=== PATIENT | male | born 1950 | race Caucasian/White ===

== ENCOUNTER 2023-07-22 01:24 | Observation (INO) | payer MEDICARE, SELFPAY ==
--- OUTSIDE RECORDS SUMMARY | 2023-07-22 00:37 | XMS RPT_ITS | CCD ---
Author Name Unknown Address [id number] [place] [address] Organization [facility] Care Team Providers Care Lining Machine Operator Name Role Phone Unavailable Primary Care Provider Unavailabl e Shasha DO, [facility] Primary Care Provide r Evens Love MD Unavailable Philomena Leone MD Unavailable Ignacio KEYES MD, [place] Unavailable Ignacio KEYES, [place] Unavailable NICA PIZANO Attending Unavailable NICA PIZANO Referring Unavailable RONA PETER Referring Unavailable TIRMONIA, [facility] Unavail able EVENS LOVE Referring Unavailable TIRMONIA, [facility] Primary Care Unavail able EVENS LOVE Referring Unavailable TIRMONIA, [facility] Unavail able TIRMONIA, [facility] Primary Care Unavail able SHREYAS LIM Referring Unavailable Philomena Leone MD Unavailable EVENS LOVE Attending Unavailable EVENS LOVE Referring Unavailable EVENS LOVE Attending Unavailable CLAIR CABALLERO Admitting Unavailab le CINDY-CLAIR PÉREZ Attending Unavailab le CINDYCLAIR CANALES Referring Unavailab le TIRMONIA, [facility] Primary Care Unavail able TRENTON JAQUEZ Referring Unavailable TIRMONIA, [facility] Unavail able EVENS LOVE Referring Unavailable TIRMONIA, [facility] Unavail able TIRMONIA, [facility] Unavailable CLAIR CABALLERO Referring Unavailab le TIRMONIA, EDNA Primary Care Unavailable TIRMONIA, [place] Primary Care Unavailable TRENTON JAQUEZ Referring Unavailable JANNETH PIERRE Attending Unavailable TIRMONIA, EDNA Primary Care Unavailable JANNETH PIERRE Attending Unavailable JANNETH PIERRE Attending Unavailable TIRMONIA, EDNA Primary Care Unavailable TIRMONIA, EDNA Primary Care Unavailable TIRMONIA, EDNA Primary Care Unavailable TIRMONIA, EDNA Primary Care Unavailable MINNIE KUMAR Attending Unavailable SELF Referring Unavailable TIRMONIA, EDNA Primary Care Unavailable TIRMONIA, EDNA Primary Care Unavailable TIRMONIA, EDNA Primary Care Unavailable TIRMONIA, EDNA Primary Care Unavailable JANNETH PIERRE Attending Unavailable JANNETH PIERRE Attending Unavailable TIRMONIA, EDNA Primary Care Unavailable TIRMONIA, EDNA Primary Care Unavailable JANNETH PIERRE Attending Unavailable EVENS LOVE Referring Unavailable RONA PETER Attending Unavailable TIRMONIA, EDNA Primary Care Unavailable TIRMONIA, EDNA Primary Care Unavailable TIRMONIA, EDNA Primary Care Unavailable JANNETH PIERRE Attending Unavailable TIRMONIA, EDNA Primary Care Unavailable RONA PETER Referring Unavailable TIRMONIA, EDNA Primary Care Unavailable TRENTON JAQUEZ Attending Unavailable TIRMONIA, EDNA Primary Care Unavailable MASCI, TRENTON A Referring Unavailable MASCTRENTON Fontaine Attending Unavailable MASCTRENTON Fontaine Referring Unavailable TIRMONIA, [place] Primary Care Unavailable TIRMONIA, EDNA Primary Care Unavailable Vasu KEYES, Philomena Gross Unavailable Trenton Jaquez DO Unavailable DoLaquita morales RN Unavailable Unavailable Medications Current Medications Medication Drug Class(es) Dates Sig (Normalized) Sig (Original) acetaminophen 325 mg / HYDROcodone bitartrate 5 mg oral tablet (7 sources) Opioid Agonist Start: 06-13-2023 End: 06-20-2023 take 1 tablet by mouth every six hours as needed for pain HYDROcodone-acetami nophen (NORCO) 5-325 mg per tablet Indications: Spinal stenosis of lumbar region, unspecified whether neurogenic claudication present Take 1 tablet by mouth every 6 hours as needed for pain for up to 7 days. 28 tablet 0 06/13/2023 06/20/2023 Active Completed/Discontinued Medications Medication Drug Class(es) Dates Sig (Normalized) Sig (Original) apixaban 5 mg oral tablet (20 sources) Factor Xa Inhibitor Start: 07-05-2023 take 1 tablet by mouth twice daily apixaban (ELIQUIS) 5 mg tab(s) Take 1 tablet by mouth two times a day. 60 tablet 2 07/05/2023 Active Problems Problem Classification Problem Date Documented Da te Episodic/Chronic Abdominal pain (1 source) Upper abdominal pain, unspecified; Translations: [Upper abdominal pain] Onset: 07-03-2023 Episodic Anxiety disorders (1 source) Anxiety disorder due to a general medical condition; Translations: [Generalized anxiety disorder] 06-30-2023 Chronic Cancer of bronchus; lung (20 sources) Secondary malignant neoplasm of liver; Translations: [Malignant neoplasm of unspecified part of unspecified bronchus or lung] Onset: 07-14-2023 07-05-2023 Chronic Cancer; other respiratory and intrathoracic (1 source) Malignant neoplasm of lower respiratory tract; 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] 07-05-2023 Chronic Immunizations and screening for infectious disease (2 sources) Encounter for immunization; Translations: [Need for COVID-19 vaccine] Onset: 06-08-2023 Episodic Neoplasms of unspecified nature or uncertain behavior (2 sources) Neoplasm of unspecified behavior of bone, soft tissue, and skin; Translations: [Lumbar spine tumor] Onset: 06-07-2023 Episodic Other aftercare (2 sources) Patient encounter status; Translations: [Encounter for palliative care] 06-25-2023 Episodic Other aftercare (1 source) Under care of palliative care physician; Translations: [Encounter for palliative care] 06-30-2023 Episodic Other bone disease and musculoskeletal deformities (1 source) Lesion of right thigh bone; Translations: [Disorder of bone, unspecified] 06-19-2023 Episodic Other bone disease and musculoskeletal deformities (1 source) Disorder of bone, unspecified; Translations: [Lytic bone lesion of right femur] Onset: 06-20-2023 Episodic Other gastrointestinal disorders (1 source) Therapeutic opioid induced constipation; Translations: [Drug induced constipation] 06-30-2023 Episodic Other liver diseases (1 source) Lesion of liver; Translations: [Liver disease, unspecified] 06-17-2023 Chronic Other liver diseases (3 sources) Liver disease, unspecified; Translations: [Liver lesion] Onset: 06-20-2023 Chronic Other lower respiratory disease (1 source) Cough; Translations: [Acute cough] 04-26-2023 Episodic Other lower respiratory disease (20 sources) Other nonspecific abnormal finding of lung field; Translations: [Swelling, mass, or lump in chest] Onset: 06-08-2023 06-08-2023 Episodic Other lower respiratory disease (1 source) Hiccoughs; Translations: [Hiccough] 06-30-2023 Episodic Other nervous system disorders (2 sources) Pain due to neoplastic disease; Translations: [Neoplasm related pain (acute) (chronic)] 06-27-2023 Chronic Other nervous system disorders (1 source) Malignant bone pain; Translations: [Neoplasm related pain (acute) (chronic)] 07-05-2023 Chronic Other nervous system disorders (1 source) Other chronic pain; Translations: [Chronic bilateral low back pain with right-sided sciatica] Onset: 06-07-2023 Chronic Other nutritional; endocrine; and metabolic disorders (1 source) Weight loss; Translations: [Abnormal weight loss] 06-30-2023 Episodic Other nutritional; endocrine; and metabolic disorders (1 source) Dietary intake finding; Translations: [Other symptoms and signs concerning food and fluid intake] 06-30-2023 Episodic Other screening for suspected conditions (not mental disorders or infectious disease) (20 sources) Imaging of thorax abnormal; Translations: [Abnormal findings on diagnostic imaging of other specified body structures] Onset: 06-08-2023 06-08-2023 Chronic Other screening for suspected conditions (not mental disorders or infectious disease) (20 sources) Finding of spinal region; Translations: [Abnormal findings on diagnostic imaging of other parts of musculoskeletal system] Onset: 06-08-2023 06-08-2023 Episodic Pneumonia (except that caused by tuberculosis or sexually transmitted disease) (2 sources) Infective pneumonia; Translations: [Pneumonia, unspecified organism] Onset: 04-26-2023 04-26-2023 Episodic Rheumatoid arthritis and related disease (20 sources) Rheumatoid arthritis; Translations: [Rheumatoid arthritis, unspecified] Onset: 06-08-2023 06-08-2023 Chronic Secondary malignancies (1 source) Secondary malignant neoplastic disease; Translations: [Secondary malignant neoplasm of unspecified site] 06-19-2023 Chronic Secondary malignancies (2 sources) Secondary malignant neoplasm of brain; Translations: [Secondary malignant neoplasm of brain] 06-22-2023 Chronic Secondary malignancies (1 source) Secondary malignant neoplasm of unspecified site; Translations: [Metastatic malignant neoplasm, unspecified site (HCC)] Onset: 07-03-2023 Chronic Spondylosis; intervertebral disc disorders; other back problems (20 sources) Chronic low back pain; Translations: [Chronic midline low back pain] Onset: 05-26-2023 06-08-2023 Episodic Thyroid disorders (1 source) Acquired hypothyroidism; Translations: [Hypothyroidism, unspecified] 07-14-2023 Chronic Unclassified (1 source) Acute cough; Translations: [Acute cough] Onset: 04-26-2023 Unclassified (2 sources) Low back pain, unspecified back pain laterality, unspecified chronicity, unspecified whether sciatica present; Translations: [Low back pain, unspecified back pain laterality, unspecified chronicity, unspecified whether sciatica present] Onset: 05-26-2023 Unclassified (1 source) Radiotherapy On-treatment Visit Onset: 07-05-2023 Results Test Name Value Interpretation Reference Range Facil ity Vital Signs Date Time Vital Sign Value Performing Clinician Frank mei 07-14-2023 13:36-0500 Body temperature 98.49 [degF] Treatment Wstr Work Phone: [facility] 07-14-2023 13:36-0500 Diastolic blood pressure 64 mm[Hg] Treatment Wstr Work Phone: [facility] 07-14-2023 13:36-0500 Heart rate 77 /min Treatment Wstr Work Phone: [facility] 07-14-2023 13:36-0500 Respiratory rate 16 /min Treatment Wstr Work Phone: [facility] 07-14-2023 13:36-0500 SaO2% (BldA) [Mass fraction] 98 % Treatment Wstr Work Phone: [facility] 07-14-2023 13:36-0500 Systolic blood pressure 99 mm[Hg] Treatment Wstr Work Phone: [facility] 07-14-2023 09:10-0500 Body temperature 99 [degF] Trenton Jaquez DO Work Phone: [facility] 07-14-2023 09:10-0500 Body weight 63.96 kg Trenton Masci DO Work Phone: [facility] 07-14-2023 09:10-0500 Diastolic blood pressure 69 mm[Hg] Trenton Masci DO Work Phone: [facility] 07-14-2023 09:10-0500 Heart rate 81 /min Trenton Masci DO Work Phone: [facility] 07-14-2023 09:10-0500 Respiratory rate 12 /min Trenton Masci DO Work Phone: [facility] 07-14-2023 09:10-0500 SaO2% (BldA) [Mass fraction] 96 % Trenton Masci DO Work Phone: [facility] 07-14-2023 09:10-0500 Systolic blood pressure 106 mm[Hg] Trenton Masci DO Work Phone: [facility] 07-12-2023 17:01-0500 Body temperature 99.1 [degF] Taunia Hardgrove RN Work Phone: [facility] 07-12-2023 17:01-0500 Diastolic blood pressure 60 mm[Hg] Taunia Hardgrove RN Work Phone: [facility] 07-12-2023 17:01-0500 Heart rate 78 /min Taunia Hardgrove RN Work Phone: [facility] 07-12-2023 17:01-0500 Respiratory rate 16 /min Taunia Hardgrove RN Work Phone: [facility] 07-12-2023 17:01-0500 Systolic blood pressure 92 mm[Hg] Taunia Hardgrove RN Work Phone: [facility] 07-08-2023 16:41-0500 Body temperature 97.3 [degF] Taunia Hardgrove RN Work Phone: [facility] 07-08-2023 16:41-0500 Diastolic blood pressure 78 mm[Hg] Taunia Hardgrove RN Work Phone: [facility] 07-08-2023 16:41-0500 Heart rate 78 /min Lenora Elijahgrove RN Work Phone: [facility] 07-08-2023 16:41-0500 Respiratory rate 16 /min Lenora Elijahgrove RN Work Phone: [facility] 07-08-2023 16:41-0500 Systolic blood pressure 122 mm[Hg] Lenora Elijahgrove RN Work Phone: [facility] 07-07-2023 14:29-0500 Body height 170.2 cm Gurvinder Schwartz RN Work Phone: [facility] 07-07-2023 14:29-0500 Body temperature 97.39 [degF] Gurvinder Schwartz RN Work Phone: [facility] 07-07-2023 14:29-0500 Body weight 63.5 kg Gurvinder Schwartz RN Work Phone: [facility] 07-07-2023 14:29-0500 Diastolic blood pressure 72 mm[Hg] Gurvinder Schwartz RN Work Phone: [facility] 07-07-2023 14:29-0500 Heart rate 54 /min Gurvinder Schwartz RN Work Phone: [facility] 07-07-2023 14:29-0500 Respiratory rate 18 /min Gurvinder Schwartz RN Work Phone: [facility] 07-07-2023 14:29-0500 Systolic blood pressure 114 mm[Hg] Gurvinder Schwartz RN Work Phone: [facility] 07-05-2023 11:58-0500 Body temperature 98.4 [degF] Trenton Navarretei DO Work Phone: [facility] 07-05-2023 11:58-0500 Body weight 63.5 kg Trenton Masci DO Work Phone: [facility] 07-05-2023 11:58-0500 Diastolic blood pressure 61 mm[Hg] Trenton Masci DO Work Phone: [facility] 07-05-2023 11:58-0500 Heart rate 67 /min Trenton Navarretei DO Work Phone: [facility] 07-05-2023 11:58-0500 Respiratory rate 16 /min Trenton Masci DO Work Phone: [facility] 07-05-2023 11:58-0500 SaO2% (BldA) [Mass fraction] 96 % Trenton Masci DO Work Phone: [facility] 07-05-2023 11:58-0500 Systolic blood pressure 99 mm[Hg] Trenton Rosalbai DO Work Phone: [facility] 06-22-2023 13:48-0500 Body temperature 98.01 [degF] Janneth Pierre MD, MD Work Phone: [facility] 06-22-2023 13:48-0500 Body weight 70.99 kg Janneth Pierre MD, MD Work Phone: [facility] 06-22-2023 13:48-0500 Diastolic blood pressure 74 mm[Hg] Janneth Pierre MD, MD Work Phone: [facility] 06-22-2023 13:48-0500 Heart rate 71 /min Janneth Pierre MD, MD Work Phone: [facility] 06-22-2023 13:48-0500 SaO2% (BldA) [Mass fraction] 96 % Janneth Pierre MD, MD Work Phone: [facility] 06-22-2023 13:48-0500 Systolic blood pressure 120 mm[Hg] Janneth Pierre MD, MD Work Phone: [facility] 06-17-2023 14:44-0500 Body height 173.5 cm Trenton Navarretei DO Work Phone: [facility] 06-17-2023 14:44-0500 Body temperature 98.71 [degF] Trenton Rosalbai DO Work Phone: [facility] 06-17-2023 14:44-0500 Body weight 71.44 kg Trenton Rosalbai DO Work Phone: [facility] 06-17-2023 14:44-0500 Diastolic blood pressure 69 mm[Hg] Trenton Jaquez DO Work Phone: [facility] 06-17-2023 14:44-0500 Heart rate 81 /min Trenton Navarretei DO Work Phone: [facility] 06-17-2023 14:44-0500 SaO2% (BldA) [Mass fraction] 97 % Trenton Navarretei DO Work Phone: [facility] 06-17-2023 14:44-0500 Systolic blood pressure 114 mm[Hg] Trenton Navarretei DO Work Phone: [facility] 06-16-2023 03:00-0500 Body temperature 98.2 [degF] Lea Chairez RN Work Phone: [facility] 06-16-2023 03:00-0500 Diastolic blood pressure 68 mm[Hg] Lea Chairez RN Work Phone: [facility] 06-16-2023 03:00-0500 Respiratory rate 18 /min Lea Chairez RN Work Phone: [facility] 06-16-2023 03:00-0500 Systolic blood pressure 128 mm[Hg] Lea Chairez RN Work Phone: [facility] 04-26-2023 12:46-0500 Body temperature 98.4 [degF] Nica Pizano CHEMIST INORGANIC.EMPLOYEE RELATIONS CONSULTANT Work Phone: [facility] 04-26-2023 12:46-0500 Diastolic blood pressure 83 mm[Hg] Nica Pizano CHEMIST INORGANIC.EMPLOYEE RELATIONS CONSULTANT Work Phone: [facility] 04-26-2023 12:46-0500 Heart rate 80 /min Nica Pizano CHEMIST INORGANIC.EMPLOYEE RELATIONS CONSULTANT Work Phone: [facility] 04-26-2023 12:46-0500 Respiratory rate 20 /min Nica Pizano CHEMIST INORGANIC.EMPLOYEE RELATIONS CONSULTANT Work Phone: [facility] 04-26-2023 12:46-0500 SaO2% (BldA) [Mass fraction] 97 % Nica Pizano APRN.CNP Work Phone: [facility] 04-26-2023 12:46-0500 Systolic blood pressure 125 mm[Hg] Nica Pizano APRN.CNP Work Phone: [facility] Encounters Encounter Date Encounter Type Care Provider Facility Start: 07-17-2023 Home visit Lety Wilkins RN Work Phone: HOME HOSPICE Plan of Treatment Date Care Activity Detail Author Start: 07-14-2026 Diabetes Screening Diabetes Screenin g [facility] Start: 07-03-2026 Diabetes Screening Diabetes Screenin g [facility] Start: 06-08-2026 Diabetes Screening Diabetes Screenin g [facility] Start: 07-14-2023 End: 10-13-2023 Cortisol [Mass/volume] in Serum or Plasma [facility] Work Phone: Immunizations Immunization Date Immunization Notes Care Provider Jaja randle 06-08-2023 COVID-19 vaccine, ag e 12+ yr, season ([employer]) Wendy Hammond RN [facility] 06-08-2023 influenza (HD-IIV4) vaccine, age 65+ yr, high dose, quadrivalent, PF (FLUZONE HIGH-DOSE) Wendy Hammond RN [facility] 03-22-2022 Influenza, injectabl e, Madin Mary Canine Kidney, preservative free, quadrivalent Wendy Hammond RN [facility] Work Phone: 03-22-2022 influenza virus vaccine, unspecified formulation Nica Pizano APRN.CNP Work Phone: [facility] 03-10-2021 influenza, seasonal, injectable Wendy Hammond RN [facility] Work Phone: 03-28-2020 influenza (HD-IIV4) vaccine, age 65+ yr, high dose, quadrivalent, PF (FLUZONE HIGH-DOSE) Wendy Hammond RN [facility] Work Phone: Payers Date Payer Category Payer Medicare [id number] 2020 Medicare [id number] 2020 Private Health Insurance [id number] 2007 Medicare MEDICARE MEDICAR E A AND B [id number] 2007-Present [phone] [place] [address] Medicare [id number] 2007 Medicare [id number] Social History Date Type Detail Facility Tobacco smoking stat [facility] Tobacco smoking consumption unknown [facility] Start: 1950 Sex Assigned At Not on file [facility] Start: 04-26-2023 Tobacco smoking stat [facility] Never smoked tobacco [facility] Start: 04-26-2023 End: 06-08-2023 Tobacco use and exposure Smokeless tobacco non-user [facility] Start: 04-26-2023 End: 07-14-2023 Alcohol intake Current drinker of alcohol (finding) [facility] Start: 04-26-2023 End: 05-26-2023 History of Social function [facility] Start: 04-26-2023 End: 05-26-2023 Tobacco use panel [facility] Adult Depression Screening Assessment 0 [facility] Start: 06-08-2023 Tobacco smoking stat [facility] Ex-smoker [facility] Start: 05-23-1970 End: 05-23-1995 History of tobacco use Current smoker [facility] Start: 05-23-1970 End: 05-23-1995 History of tobacco use Cigarette Smoker [facility] Start: 06-08-2023 Sexual orientation Heterosexual (marychuy leavitt) [facility] Start: 06-17-2023 Alcohol [facility] Clinical Notes 07-14-2022 to 07-15-2023 Telephone Encounter - Laquita Engel RN - 07/15/2023 9:50 AM ESTTelephone Encounter - Raegan Patient ShaggerRaissa - 07/14/2023 4:09 PM Laquita Beavers RN - 07/14/2023 2:50 PM EST Note Date & Type Note Facility 07-15-2023 Miscellaneous Notes CYCLE 1/DAY 1 POST TREATMENT CALL Today's date: July 15, 2023 Treatment Regimen: keytruda C1D1 Date: 07/14/23 Called patient to follow-up on symptom management. Spoke with patients SYMPTOM ASSESSMENT Neuro: None- denies dizziness, headaches, or visual changes CV/Resp: None- denies SOB, chest pain/pressure GI/: None- denies N/V/D, had breakfast this morning. Integument: None- denies rash/itching Activity: Patient reported decreased energy level Pain: the usual pain . Denies worsening or new pains today. Fever: No Chills: No Any new referrals needed? No Reinforced CURRENT treatment education based on current and anticipated symptoms. Discussed port/line care and patient verbalizes understanding: Not Applicable Patient instructed to contact office or after hours Hematology/Oncology fellow for: temperature ? 100.4; questions or concerns. Patient verbalized understanding of when to seek medical attention and after hours number protocol. Laquita Engel RN documented in this encounter [facility] 07-14-2023 Miscellaneous Notes Called and informed patients family of pall med follow up for 07/25 SP Palliative Medicine Referral Assessment Referral Accepted: Yes, Location: Pall Med at Home. 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 Wishes to receive palliative care services again. Please call to schedule with pall med at home. Dionna Yeboah RN July 14, [address] Chowdhury office who calls office . Regarding patient revoke hospice and want to sign back with pall med . Referral in other order . Rc Silva documented in this encounter [facility] 07-14-2023 Nurse Note This visit was completed chairside. Laquita Engel RN ONCOLOGY PATIENT EDUCATION NOTE TOPIC: Immunotherapy, Medications: Keytruda READINESS TO LEARN: COGNITIVE ABILITY: Alert and oriented MOTIVATION TO LEARN: Interested FAMILY SUPPORT: High - Very involved in pt care INSTRUCTION PROVIDED TO: Patient, Spouse, and Son INSTRUCTION PROVIDED BY: Nurse Coordinator PATIENT LEARNS BEST BY: Multiple Methods FACTORS AFFECTING LEARNING: None PHYSICAL LIMITATIONS AFFECTING LEARNING: None LEARNING RESPONSE DIAGNOSIS: Lung Cancer METHOD OF INSTRUCTION: Individual instruction Written instruction - handouts Verbal instruction PATIENT/FAMILY RESPONSE: Verbalizes understanding of: CHEMOTHERAPY-Regimen, toxicity and side effects FOLLOW UP PLAN: Patient instructed to call with any further issues Recommend - Recommend continued instruction and follow up as directed Follow up phone call. Contact information given. SUPPLEMENTAL MATERIAL: Written material was provided at this visit with the following information: - Immunotherapy education was provided by a pharmacist NO - Side effect management information was provided/discussed including but not limited to: abdominal discomfort, appetite changes, arthralgia, bowel habit changes, diet, electrolyte disturbances, fatigue, hair loss, myalgia, rash, shortness of breath, skin changes, YES - Provided important phone numbers and contacts during and after hours. YES - Provided information on symptoms that require immediate assistance. YES - Provided Immunotherapy when to call handouts YES - Preventing infection. YES - Treatment schedule and confirmation of appointment times. YES - Available support groups. YES - The importance of contraception during the course of chemotherapy YES - wallet cards given to and discussed importance of carrying Time Spent: 35 minutes REFERRAL (RECOMMENDATION): N/A Laquita Engel RN documented in this encounter [facility] 07-14-2023 Miscellaneous Notes Addended by: TRENTON JAQUEZ on: 07/14/2023 10:09 AM Modules accepted: Orders Addended by: PAOLA BEAR on: 07/14/2023 10:07 AM Modules accepted: Orders documented in this encounter [facility] 07-14-2023 Miscellaneous Notes Met with patient and introduced myself. Patient was given a My Journey binder with chemocare information, immunotherapy side effects sheet, immunotherapy wallet care, office contact information, and thermometer. Patient aware this nurse will review information on scheduled appointment date. Laquita Engel RN documented in this encounter [facility] 07-14-2023 Miscellaneous Notes Second attempt to phone pt/family to follow up admission notes that they requested PC services. 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 HPI: The patient is a 73-year-old male with past medical history significant for rheumatoid arthritis (diagnosed about 15 years ago), low back pain, former smoker (quit 1995; 15 pack years). RA--had been on MTX, Humira and other biologics in the past. Currently on Plaquenil. Had an MRI of the lumbar spine which showed marrow replacing lesions in L2 and L3 suspicious for metastatic disease. On a callback MRI done with contrast similar osseous findings and retroperitoneal adenopathy observed as well. Follow-up CT abdomen pelvis 06/12/2023 identified Widespread abdominopelvic neoplasm, including bilobar hepatic masses, extensive abdominal lymphadenopathy, a right adrenal mass, multiple lytic bone metastases, and suspected carcinomatosis. This is presumably diffuse metastatic disease, although the primary neoplasm is not clearly identified. As indicated, the dominant left lobe liver metastasis would be amenable for percutaneous biopsy. CT chest IMPRESSION: 1. RIGHT upper lobe mass favoring primary pulmonary malignancy. 2. Multiple bilateral small pulmonary nodules highly suspicious for metastatic disease. 3. Metastatic RIGHT hilar and paratracheal lymphadenopathy. 4. Lytic osseous metastases involving the T8 vertebral body, bilateral fourth ribs, and LEFT ninth rib. Underwent biopsy of liver metastasis. Pathology revealed metastatic poorly differentiated carcinoma. PD-L1 and targeted NGS panel pending. 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 Was started on dexamethasone and began WBRT and RT to the right greater trochanter. Presents for ongoing oncologic management. Interim history: Weight stable now. Using walker. Greater trochanteric pain right hip unchanged. RA had manifested as bilateral hand, knee, ankle and back pain. He is currently on hydroxychloroquine. Hands he says her not too bad at this point. PAST MEDICAL HISTORY Diagnosis Date Arthritis PAST SURGICAL HISTORY Procedure Laterality Date KNEE LEFT OP SURGERY REVISE MEDIAN N/CARPAL TUNNEL SURG Right ALLERGIES No Known Allergies Current Outpatient Medications Medication Sig LORazepam (ATIVAN) 1 mg tablet Take 1 mg by mouth every 4 hours as needed for anxiety. famotidine (PEPCID AC) 10 mg tablet Take 10 mg by mouth two times a day. pantoprazole DR (PROTONIX) 20 mg tablet Take 20 mg by mouth once daily. hyoscyamine sublingual (LEVSIN SL) 0.125 mg Dissolve 1-2 tablets under the tongue every 2 hours as needed for Secretions. (1 tablet for moderate symptoms; 2 tablets for severe symptoms) haloperidol lactate (HALDOL) 2 mg/mL solution Take 0.5-1 mL by mouth every 4 hours as needed for Agitation or nausea/vomiting. (0.5 mL for moderate symptoms; 1 mL for severe symptoms) bisacodyl EC (DULCOLAX, BISACODYL,) 5 mg EC tablet Take 2 tablets by mouth once daily as needed for constipation. senna (SENOKOT) 8.6 mg tab Take 1 tablet by mouth two times a day. (Patient taking differently: Take 2 tablets by mouth two times a day.) gabapentin (NEURONTIN) 400 mg capsule Take 1 capsule by mouth three times a day for 30 days. apixaban (ELIQUIS) 5 mg tab(s) Take 1 tablet by mouth two times a day. fentaNYL (DURAGESIC) 25 mcg/hr Apply 1 Patch as directed every 72 hours for 15 days. baclofen 10 mg tablet Take 1 tablet by mouth three times a day as needed. For hiccups naloxone 4 mg/actuation nasal spray (NARCAN) Use 1 spray in one nostril as needed for overdose. May repeat every 2 to 3 min in alternating nostrils until medical assistance is available bisacodyl (DULCOLAX, BISACODYL,) 10 mg supp 10 mg by RECTAL route once daily as needed for constipation. Take 1 daily as needed for constipation if no BM using senna for 3 days or unable to take senna by mouth multivitamin tablet Take 1 tablet by mouth once daily. dexAMETHasone (DECADRON) 4 mg tablet Take 1 tablet by mouth two times a day with meals. hydrOXYchloroQUINE (PLAQUENIL) 200 mg tablet Take 200 mg by mouth every 12 hours. LORazepam (ATIVAN) 1 mg tablet Take 0.5 mg by mouth two times a day at 6 am and 9 pm. No current facility-administered medications for this visit. 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 Family History Problem Relation Age of Onset Arthritis Mother Pancreatic Cancer Father Alzheimer's Disease Father Heart disease Brother Lung Cancer Brother Diabetes Brother Arthritis Brother Kidney Disease Brother Diabetes Other Arthritis Other Father--Pancreas diagnosed in his 60s. Surgery. Lived into his 70s. Brother--Lung cancer. Long-term smoker. ROS: Constitutional: No fever. No drenching night sweats. Neuro: No recent ANGEL. No symptoms of sensory neuropathy. HEENT: No recent change in voice, vision or hearing. Resp: No cough, wheeze or emoptysis. No shortness of breath at rest. CVS: No exertional chest pain, PND or orthopnea. No extremity swelling/edema. GI: No dysphagia or odynophagia. No reflux, n/v or abdominal pain, bloating or distension. No black or bloody stools. : No dysuria or gross hematuria Endo: No hot flashes. No polyuria or polydipsia. No heat or cold intolerance. Musculoskeletal: See above. Derm: No current rash. No history of jaundice. No diffuse pruritis. Heme: No unusual bleeding and unexplained bruising. Psych: Normal mood. PHYSICAL EXAM: Vitals: Blood pressure 106/69, pulse 81, temperature 37.2 C (99 F), resp. rate 12, weight 64 kg (141 lb), SpO2 96%. Cachetic-appearing and in no acute distress. EYES: Sclerae are anicteric bilaterally. ENT: Oral mucosa is unremarkable. There is no sign of thrush. LYMPHATIC: There are a firm low-lying cervical adenopathy on the left. RESPIRATORY: Inspiratory breath sounds are of normal intensity in all rodríguez. No rales, wheezes or rhonchi. CARDIOVASCULAR: Rhythm is regular. ABDOMEN: The abdomen is nondistended. Tender left hepatomegaly. Extremities: No swelling or edema. SKIN: No jaundice or rash. NEUROLOGIC: curriculum coordinator II-XII are grossly intact. No focal motor weakness. Right patellar and Achilles reflex normal. MS: Very tender over right greater trochanter. ASSESSMENT/PLAN: (R91.8) Mass of lower lobe of right lung (primary encounter diagnosis (M89.9) Lytic bone lesion of right femur (K76.9) Liver lesion, left lobe (C79.9) Metastatic malignant neoplasm, unspecified site (HCC) Assessment: -The patient is a 73-year-old male with a past medical history significant for rheumatoid arthritis and a [id number] history of smoking having quit in 1995. Evaluated for pain and weight loss found to have a right lung mass as well as multiple skeletal lesions consistent with metastases and liver lesions consistent with metastases. -Biopsy consistent with metastatic non-small cell lung cancer. -ECOG PS 3. -Innumerable brain metastases received WBRT. -Palliative radiation to right greater trochanter. -Recent splanchnic vein thrombosis. -PD-L1 returned to 70%. -We revisited therapy today. Although PS is certainly borderline, he is capable of ambulation around the home and limited self-care. We discussed the pros and cons of immunotherapy. I discussed the rationale for single agent pembrolizumab based on his PD-L1 1 percentage. Also discussed high likelihood of flaring rheumatoid arthritis symptoms that should be manageable with prednisone. Goals of therapy would be possible palliation and potential prolongation of survival. After a discussion of the risks, benefits and alternatives he agreed to proceed. -I discussed the logistics, potential risks (including but not limited to autoimmune side effects and the small potential for as a consequence of severe toxicity/complications of therapy), benefits and alternatives, as well as the personnel involved in the administration of pembrolizumab. I answered his questions in detail and he verbalized understanding and agreed with the recommended therapy. Please see the electronic consent document for details of doses and schedule. Plan: -Continue apixaban 5 mg twice daily. -Rotate to palliative care. -Begin pembrolizumab as soon as able. -Plan on CT imaging chest, abdomen pelvis after 3 doses pending tolerance. -Repeat MRI brain in about 6 weeks. Portions of this documentation were copied and pasted from previous office visit notes in order to provide a cohesive continuity of the history. The note has been reviewed and edited and updated as necessary. Trenton Jaquez DO documented in this encounter [facility] 07-14-2023 Miscellaneous Notes Visit made to have patient and spouse sign revocation paperwork ahead of Oncology visit to pursue treatment documented in this encounter [facility] 07-13-2023 Miscellaneous Notes Scheduled as directed. Chani Rodgers I spoke with Dorota, an sales assistant at Hospice. As long as the patient wishes to rescind hospice and come for an OV to discuss a treatment plan, then we cancel schedule patient for the OV and they will take care of the paperwork required to rescind hospice. PSS- please schedule patient to see Dr. Jaquez tomorrow, 07/14/2022, @ 8:50. Patient and are aware and confirmed appointment date and time. Paola Bear LPN Patient's contacted the office inquiring about the status of an OV with Dr. Jaquez. I called and spoke with the director of graduate medical education, Masha, and she will pass along the message to the national sales manager and have them contact this nurse with an update. Paola Bear LPN Pall med nurse forwarded to [facility] Hospice team for review and discussion. Dionna Yeboah RN Programmer Developer I spoke with his just now about the results of the PD-L1 testing coming back at 70%. This would make him a candidate for pembrolizumab single agent. Potential side effect is it could flare of rheumatoid arthritis but it may offer further palliation and potentially prolongation of overall survival from the lung cancer. I would like to have the opportunity to have a office visit with him to discuss further. Would it be possible to rescind hospice temporarily? If so I could see him for an office visit tomorrow at 11:30 AM or I have an opening in the morning. Let us check with hospice on this. If he opts for treatment then he could go back to palliative care while receiving therapy. Trenton Jaquez DO documented in this encounter [facility] 07-12-2023 Miscellaneous Notes Routine visit completed. Pt alert and orineted sitting in recliner upon arrival. Pt states that he fell earlier to day when coming home from car ride, his said his name, he turned to look at her, lost his balance and fell onto his left shoulder/elbow and bumped his head. Neuro checks within normal limits. Skin intact. Pt reports pain well controlled at acceptable level with use of prn meds and fent patch. HRRR, no edema. Lungs clear, respirs unlabored on room air. Appetite fair to poor. Denies dysuria, last bm Tuesday. Encouraged to not wait longer than 3 days to utilize suppository if needed. VErbalized understanding. Pt reports increased anxiety. Contacted Dr Quach to update on fall and get orders to increase ativan. New order: ativan 0.5mg PO bid and 1mgPO every four hours as needed for anxiety. No suppolies needed at this time. Meds called in for ativan. Reinforced hospice availablity. documented in this encounter [facility] 07-12-2023 Miscellaneous Notes Patient was readmitted to the care of [facility]. List membership updated. CHESTER Fitch, [facility] Programmer Developer documented in this encounter [facility] 07-10-2023 Miscellaneous Notes Received call from triage asking nurse to call pt re: to constipation meds. Call placed, spoke with pt who states that pt no longer constipated and asking which meds should be taken regularly now. Education provided on use of senna unless pt having more than 3 bowel movements per day. agreeable and verbalizes understanding, agreement with visits later this week. Reinforced hospice availabiltiy. documented in this encounter [facility] 07-08-2023 Miscellaneous Notes Routine visit completed. Pt alert and oriented x 4 pleasant and coopeartive with assessment. Pt reprots pain improved but would like to get down to 0/10. Education provided and discussed med regimen to control pain. Verbalized understanding. Skin intact. HRRR, no edema. Lungs clear, respirs unlabored on room air. Appetite poor, pt eats when he is hungry, reports 40lb wt loss in last three months. Denies dysuria reports small bm, today. Ambulates unsteadily with cane, awaiting delivery of walker. Call placed to [employer] who state order was actually placed as pickup not delivery but they would correct and deliver tonight. Reinorced hospcie availabiltiy. documented in this encounter [facility] 07-08-2023 Miscellaneous Notes Request for PC services received via admission email. Left VM at both phone numbers offering support and a visit. Call back invited. documented in this encounter [facility] 07-06-2023 Note Education (DARIN) GALINDO FITZGERALD ([id number]) 1950 M Date Time Provider Department 07/06/23 JANNETH PIERRE Reason for Visit: Patient Education [91] Visit Notes: >> Alissa Mon RN Wed Jul 06, 2023 1:29 PM Status: Signed Written discharge instructions given and reviewed with patient. Patient verbalizes understanding. Encouraged to call with any questions or concerns. Instruction for 4 week phone call follow up appointment given by Dr. Pierre. Pt plans to enter hospice tomorrow. During your visit today, we recorded the following information about you: Allergies As of Date: 07/06/2023 (No Known Allergies) Date Reviewed: 07/05/2023 Reviewed by: Alissa Mon RN - Fully Assessed Prescriptions as of 07/06/2023 - senna (SENOKOT) 8.6 mg tab Take 1 tablet by mouth two times a day. - gabapentin (NEURONTIN) 400 mg capsule Take 1 capsule by mouth three times a day for 30 days. - apixaban (ELIQUIS) 5 mg tab(s) Take 1 tablet by mouth two times a day. - pantoprazole DR (PROTONIX) 20 mg tablet Take 1 tablet by mouth once daily. - LORazepam (ATIVAN) 0.5 mg Take 1 tablet by mouth two times a day as needed for up to 30 days. - oxyCODONE IR (ROXICODONE) 10 mg tab Take 1 tablet by mouth every 4 hours as needed for pain for up to 15 days. - fentaNYL (DURAGESIC) 25 mcg/hr Apply 1 Patch as directed every 72 hours for 15 days. - baclofen 10 mg tablet Take 1 tablet by mouth three times a day as needed. For hiccups - naloxone 4 mg/actuation nasal spray (NARCAN) Use 1 spray in one nostril as needed for overdose. May repeat every 2 to 3 min in alternating nostrils until medical assistance is available - bisacodyl (DULCOLAX, BISACODYL,) 10 mg supp 10 mg by RECTAL route once daily as needed for constipation. Take 1 daily as needed for constipation if no BM using senna for 3 days or unable to take senna by mouth - multivitamin tablet Take 1 tablet by mouth once daily. - dexAMETHasone (DECADRON) 4 mg tablet Take 1 tablet by mouth two times a day with meals. - hydrOXYchloroQUINE (PLAQUENIL) 200 mg tablet Take 200 mg by mouth every 12 hours. Meds Comments as of 06/17/2023: Note - severe drug-drug interaction with haldol and plaquenil, karen Wayne to continue hospice plan of care Encounter Status:Closed by ALISSA MON on 07/06/23 [facility] 07-06-2023 Note HNO ID: [id number] Author: JANNETH PIERRE MD Service: Radiation Oncology Author Type: Physician Type: Progress Notes Filed: 07/07/2023 14:41 Note Text: GALINDO FITZGERALD [id number] : 1950 07/06/2023 [facility] Department of Radiation Oncology RADIATION ONCOLOGY - COMPLETION NOTE DATE OF SIMULATION: 06/22/23, 06/29/23 DATES OF TREATMENT: 06/23/23 - 07/06/23 UNIT: [facility] AREA TREATED: Brain, Right hip DISEASE: Numerous brain metastases. Bone metastasis in the right hip and pain. DELIVERED DOSE: 3000 cGy in 10 fractions to the brain treating to the 98% isodose line with 6MV and 2 rodríguez, and 2000 cGy in 5 fractions to the right hip treating to the 100% isodose line with 15MV and 2 rodríguez. ELAPSED TIME: 13 days TOLERANCE/ RESPONSE: He denies any headaches. No significant changes in his right hip pain yet. REMARKS: He tolerated radiation treatment well overall. He has decided to enter hospice and declined a follow-up appointment with me. All his medications including steroids will be managed by hospice. Staff Physician JANNETH PIERRE M.D. / 42:41 PM Electronically Signed cc: Edna Pulliam [address] [place] [address] Trenton Jaquez [address] [facility] [id number] [facility] 07-06-2023 Nurse Note Written discharge instructions given and reviewed with patient. Patient verbalizes understanding. Encouraged to call with any questions or concerns. Instruction for 4 week phone call follow up appointment given by Dr. Pierre. Pt plans to enter hospice tomorrow. documented in this encounter [facility] 07-06-2023 History of Present illness Narrative GALINDO FITZGERALD [id number] : 1950 07/06/2023 [facility] Department of Radiation Oncology RADIATION ONCOLOGY - COMPLETION NOTE DATE OF SIMULATION: 06/22/23, 06/29/23 DATES OF TREATMENT: 06/23/23 - 07/06/23 UNIT: [facility] AREA TREATED: Brain, Right hip DISEASE: Numerous brain metastases. Bone metastasis in the right hip and pain. DELIVERED DOSE: 3000 cGy in 10 fractions to the brain treating to the 98% isodose line with 6MV and 2 rodríguez, and 2000 cGy in 5 fractions to the right hip treating to the 100% isodose line with 15MV and 2 rodríguez. ELAPSED TIME: 13 days TOLERANCE/ RESPONSE: He denies any headaches. No significant changes in his right hip pain yet. REMARKS: He tolerated radiation treatment well overall. He has decided to enter hospice and declined a follow-up appointment with me. All his medications including steroids will be managed by hospice. Staff Physician JANNETH PIERRE M.D. / 42:41 PM Electronically Signed cc: Edna Pulliam [address] [place] [address] Trenton Jaquez [address] [facility] [id number] documented in this encounter [facility] 07-05-2023 Note HNO ID: [id number] Author: JANNETH PIERRE MD Service: ? Author Type: Physician Type: Progress Notes Filed: 07/05/2023 13:19 Note Text: Radiation Oncology - On Treatment Review (OTR) Note PATIENT NAME: Galindo Fitzgerald PATIENT DIAGNOSIS: Numerous brain metastases. Bone metastasis in the right hip and pain. COURSE: palliative AREA TREATED: Brain. Right hip CURRENT DOSE: 2700 cGy in 9 fx, 1600 cGy in 4 fx PLANNED DOSE: 3000 cGy in 10 fx, 2000 cGy in 5 fx. SUBJECTIVE: He denies any headaches. No significant changes in his right hip pain yet. EXAM: KPS: 70 General Appearance: Alert and oriented. No acute distress. Radiation dermatitis: No IMAGING/LAB RESULTS: None Treatment chart checked: Yes Patient treatment site reviewed and verified:Yes Port films reviewed and current:Yes Medications started: None ASSESSMENT/PLAN: Clinically stable. No signs of toxicity. Continue radiation treatment as planned. Janneth Pierre MD [facility] 07-05-2023 Note HNO ID: [id number] Author: TRENTON JAQUEZ DO Service: ? Author Type: Physician Type: Progress Notes Filed: 07/06/2023 14:46 Note Text: Oncologic problem(s): 1) Metastatic poorly differentiated carcinoma of the lung. HPI: The patient is a 73-year-old male with past medical history significant for rheumatoid arthritis (diagnosed about 15 years ago), low back pain, former smoker (quit 1995; 15 pack years). RA--had been on MTX, Humira and other biologics in the past. Currently on Plaquenil. Had an MRI of the lumbar spine which showed marrow replacing lesions in L2 and L3 suspicious for metastatic disease. On a callback MRI done with contrast similar osseous findings and retroperitoneal adenopathy observed as well. Follow-up CT abdomen pelvis 06/12/2023 identified Widespread abdominopelvic neoplasm, including bilobar hepatic masses, extensive abdominal lymphadenopathy, a right adrenal mass, multiple lytic bone metastases, and suspected carcinomatosis. This is presumably diffuse metastatic disease, although the primary neoplasm is not clearly identified. As indicated, the dominant left lobe liver metastasis would be amenable for percutaneous biopsy. CT chest IMPRESSION: 1. RIGHT upper lobe mass favoring primary pulmonary malignancy. 2. Multiple bilateral small pulmonary nodules highly suspicious for metastatic disease. 3. Metastatic RIGHT hilar and paratracheal lymphadenopathy. 4. Lytic osseous metastases involving the T8 vertebral body, bilateral fourth ribs, and LEFT ninth rib. First evening after taking steroid (Medrol dose pack) around 05/27--had dysarthria and confusion. Improved through the night. Medrol stopped. Hasn't happened again. B/L rib pain. Right sided sciatica pain. Right groin. Fentanyl patch and oxycodone helping--can sleep better. Previously taking a lot of Aleve. Appetite decreased. ~35 lb weight loss since April. No nausea. Abdominal pain depending on what he eats. No BM in about 3-4 days. No dyspnea. No cough. Presents for ongoing oncologic management. Interim history: Underwent biopsy of liver metastasis. Pathology revealed metastatic poorly differentiated carcinoma. PD-L1 and targeted NGS panel pending. 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 Was started on dexamethasone and began WBRT and RT to the right greater trochanter. He is capable of getting around the home but is spending more than 50% of the day in bed or on the couch/chair. He was in the ED at [facility] since last seen. Complaining of abdominal pain. Seems like it was unrelated to his recent biopsy. His [id number] adds that his feet were getting blue. CT scan when compared to 06/07 showed progression of disease in the liver and a branch mesenteric vein thrombus. 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 He was not started on anticoagulation. His weight is down 16 pounds since last week of May. No cough. Not short of breath at rest. PAST MEDICAL HISTORY Diagnosis Date Arthritis PAST SURGICAL HISTORY Procedure Laterality Date KNEE LEFT OP SURGERY REVISE MEDIAN N/CARPAL TUNNEL SURG Right ALLERGIES No Known Allergies Current Outpatient Medications Medication Sig senna (SENOKOT) 8.6 mg tab Take 1 tablet by mouth two times a day. gabapentin (NEURONTIN) 400 mg capsule Take 1 capsule by mouth three times a day for [address] (PROTONIX) 20 mg tablet Take 1 tablet by mouth once daily. LORazepam (ATIVAN) 0.5 mg Take 1 tablet by mouth two times a day as needed for up to 30 days. oxyCODONE IR (ROXICODONE) 10 mg tab Take 1 tablet by mouth every 4 hours as needed for pain for up to 15 days. fentaNYL (DURAGESIC) 25 mcg/hr Apply 1 Patch as directed every 72 hours for 15 days. baclofen 10 mg tablet Take 1 tablet by mouth three times a day as needed. For hiccups bisacodyl (DULCOLAX, BISACODYL,) 10 mg supp 10 mg by RECTAL route once daily as needed for constipation. Take 1 daily as needed for constipation if no BM using senna for 3 days or unable to take senna by mouth multivitamin tablet Take 1 tablet by mouth once daily. dexAMETHasone (DECADRON) 4 mg tablet Take 1 tablet by mouth two times a day with meals. hydrOXYchloroQUINE (PLAQUENIL) 200 mg tablet Take 200 mg by mouth every 12 hours. naloxone 4 mg/actuation nasal spray (NARCAN) Use 1 spray in one nostril as needed for overdose. May repeat every 2 to 3 min in alternating nostrils until medical assistance is available No current facility-administered medications for this visit. Social History Tobacco Use Smoking status: Former Packs/day: 1.00 Years: 15.00 Additional pack years: 0.00 Total pack years: 15.00 Types: Cigarettes Start date: 1970 Quit date: 1995 Years since quittin.1 Smokeless tobacco: Never Vaping Use Vaping Use: Never used Substance Use Topics Alcohol use: Yes Alcohol/week: (more content not included)... [facility] 07-05-2023 History of Present illness Narrative Radiation Oncology - On Treatment Review (OTR) Note PATIENT NAME: Galindo Fitzgerald PATIENT DIAGNOSIS: Numerous brain metastases. Bone metastasis in the right hip and pain. COURSE: palliative AREA TREATED: Brain. Right hip CURRENT DOSE: 2700 cGy in 9 fx, 1600 cGy in 4 fx PLANNED DOSE: 3000 cGy in 10 fx, 2000 cGy in 5 fx. SUBJECTIVE: He denies any headaches. No significant changes in his right hip pain yet. EXAM: KPS: 70 General Appearance: Alert and oriented. No acute distress. Radiation dermatitis: No IMAGING/LAB RESULTS: None Treatment chart checked: Yes Patient treatment site reviewed and verified:Yes Port films reviewed and current:Yes Medications started: None ASSESSMENT/PLAN: Clinically stable. No signs of toxicity. Continue radiation treatment as planned. 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 No Status: Patient is male Stress Scale: On a scale of 0 to 10, what number best describes how much distress you have experienced in the past week?(0 being no distress and 10 being extreme distress) 8 Social work notified: Pt denied need to see social work nurse at this time. Nursing Assessment Fatigue: moderate; causing difficulty performing some activities Appetite: poor Nutritional Intake: Regular oral intake. Weight Gain/Loss: Yes Ambulatory weight history: Last 6 Encounter Wt Readings: Date: Wt: 07/05/2023 63.5 kg (140 lb) 07/03/2023 67.1 kg (148 lb) 06/28/2023 67.4 kg (148 lb 8 oz) 06/22/2023 71 kg (156 lb 8 oz) 06/20/2023 69.4 kg (153 lb) 06/17/2023 71.4 kg (157 lb 8 oz) Nausea:None Vomiting: None Bowel Function: normal bowel movements Erythema/Hyperpigmentation:none Desquamation:none Rash:none Skin Care: Aquaphor Skin Sensation: Within Normal Limits Focused Assessment denies any confusion, alert and oriented Dr Jaquez just saw pt and suggested hospice as soon as done with radiation SIGNED by: Alissa Mon RN See prior encounter this date for vitals. documented in this encounter [facility] 07-05-2023 History of Present illness Narrative Oncologic problem(s): 1) Metastatic poorly differentiated carcinoma of the lung. HPI: The patient is a 73-year-old male with past medical history significant for rheumatoid arthritis (diagnosed about 15 years ago), low back pain, former smoker (quit 1995; 15 pack years). RA--had been on MTX, Humira and other biologics in the past. Currently on Plaquenil. Had an MRI of the lumbar spine which showed marrow replacing lesions in L2 and L3 suspicious for metastatic disease. On a callback MRI done with contrast similar osseous findings and retroperitoneal adenopathy observed as well. Follow-up CT abdomen pelvis 06/12/2023 identified Widespread abdominopelvic neoplasm, including bilobar hepatic masses, extensive abdominal lymphadenopathy, a right adrenal mass, multiple lytic bone metastases, and suspected carcinomatosis. This is presumably diffuse metastatic disease, although the primary neoplasm is not clearly identified. As indicated, the dominant left lobe liver metastasis would be amenable for percutaneous biopsy. CT chest IMPRESSION: 1. RIGHT upper lobe mass favoring primary pulmonary malignancy. 2. Multiple bilateral small pulmonary nodules highly suspicious for metastatic disease. 3. Metastatic RIGHT hilar and paratracheal lymphadenopathy. 4. Lytic osseous metastases involving the T8 vertebral body, bilateral fourth ribs, and LEFT ninth rib. First evening after taking steroid (Medrol dose pack) around 1/5--had dysarthria and confusion. Improved through the night. Medrol stopped. Hasn't happened again. B/L rib pain. Right sided sciatica pain. Right groin. Fentanyl patch and oxycodone helping--can sleep better. Previously taking a lot of Aleve. Appetite decreased. ~35 lb weight loss since April. No nausea. Abdominal pain depending on what he eats. No BM in about 3-4 days. No dyspnea. No cough. Presents for ongoing oncologic management. Interim history: Underwent biopsy of liver metastasis. Pathology revealed metastatic poorly differentiated carcinoma. PD-L1 and targeted NGS panel pending. 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 Was started on dexamethasone and began WBRT and RT to the right greater trochanter. He is capable of getting around the home but is spending more than 50% of the day in bed or on the couch/chair. He was in the ED at [facility] since last seen. Complaining of abdominal pain. Seems like it was unrelated to his recent biopsy. His [id number] adds that his feet were getting blue. CT scan when compared to 06/07 showed progression of disease in the liver and a branch mesenteric vein thrombus. 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 He was not started on anticoagulation. His weight is down 16 pounds since last week of May. No cough. Not short of breath at rest. PAST MEDICAL HISTORY Diagnosis Date Arthritis PAST SURGICAL HISTORY Procedure Laterality Date KNEE LEFT OP SURGERY REVISE MEDIAN N/CARPAL TUNNEL SURG Right ALLERGIES No Known Allergies Current Outpatient Medications Medication Sig senna (SENOKOT) 8.6 mg tab Take 1 tablet by mouth two times a day. gabapentin (NEURONTIN) 400 mg capsule Take 1 capsule by mouth three times a day for [address] (PROTONIX) 20 mg tablet Take 1 tablet by mouth once daily. LORazepam (ATIVAN) 0.5 mg Take 1 tablet by mouth two times a day as needed for up to 30 days. oxyCODONE IR (ROXICODONE) 10 mg tab Take 1 tablet by mouth every 4 hours as needed for pain for up to 15 days. fentaNYL (DURAGESIC) 25 mcg/hr Apply 1 Patch as directed every 72 hours for 15 days. baclofen 10 mg tablet Take 1 tablet by mouth three times a day as needed. For hiccups bisacodyl (DULCOLAX, BISACODYL,) 10 mg supp 10 mg by RECTAL route once daily as needed for constipation. Take 1 daily as needed for constipation if no BM using senna for 3 days or unable to take senna by mouth multivitamin tablet Take 1 tablet by mouth once daily. dexAMETHasone (DECADRON) 4 mg tablet Take 1 tablet by mouth two times a day with meals. hydrOXYchloroQUINE (PLAQUENIL) 200 mg tablet Take 200 mg by mouth every 12 hours. naloxone 4 mg/actuation nasal spray (NARCAN) Use 1 spray in one nostril as needed for overdose. May repeat every 2 to 3 min in alternating nostrils until medical assistance is available No current facility-administered medications for this visit. 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 Family History Problem Relation Age of Onset Arthritis Mother Pancreatic Cancer Father Alzheimer's Disease Father Heart disease Brother Lung Cancer Brother Diabetes Brother Arthritis Brother Kidney Disease Brother Diabetes Other Arthritis Other Father--Pancreas diagnosed in his 60s. Surgery. Lived into his 70s. Brother--Lung cancer. Long-term smoker. ROS: Constitutional: No fever. No drenching night sweats. Neuro: No recent ANGEL. No symptoms of sensory neuropathy. HEENT: No recent change in voice, vision or hearing. Resp: No cough, wheeze or emoptysis. No shortness of breath at rest. CVS: No exertional chest pain, PND or orthopnea. No extremity swelling/edema. GI: No dysphagia or odynophagia. No reflux, n/v or abdominal pain, bloating or distension. No black or bloody stools. : No dysuria or gross hematuria Endo: No hot flashes. No polyuria or polydipsia. No heat or cold intolerance. Musculoskeletal: See above. Derm: No current rash. No history of jaundice. No diffuse pruritis. Heme: No unusual bleeding and unexplained bruising. Psych: Normal mood. PHYSICAL EXAM: Vitals: Blood pressure 99/61, pulse 67, temperature 36.9 C (98.4 F), temperature source Temporal, resp. rate 16, weight 63.5 kg (140 lb), SpO2 96%. Cachetic-appearing and in no acute distress. EYES: Sclerae are anicteric bilaterally. ENT: Oral mucosa is unremarkable. There is no sign of thrush. LYMPHATIC: There are a firm low-lying cervical adenopathy on the left. RESPIRATORY: Inspiratory breath sounds are of normal intensity in all rodríguez. No rales, wheezes or rhonchi. CARDIOVASCULAR: Rhythm is regular. ABDOMEN: The abdomen is nondistended. Tender left hepatomegaly. Extremities: No swelling or edema. SKIN: No jaundice or rash. NEUROLOGIC: curriculum coordinator II-XII are grossly intact. No focal motor weakness. Right patellar and Achilles reflex normal. MS: Very tender over right greater trochanter. ASSESSMENT/PLAN: (R91.8) Mass of lower lobe of right lung (primary encounter diagnosis (M89.9) Lytic bone lesion of right femur (K76.9) Liver lesion, left lobe (C79.9) Metastatic malignant neoplasm, unspecified site (HCC) Assessment: -The patient is a 73-year-old male with a past medical history significant for rheumatoid arthritis and a [id number]-[id number] history of smoking having quit in 1995. Evaluated for pain and weight loss found to have a right lung mass as well as multiple skeletal lesions consistent with metastases and liver lesions consistent with metastases. -Biopsy consistent with metastatic non-small cell lung cancer. -ECOG PS 3. -Innumerable brain metastases receiving WBRT. -Receiving palliative radiation to right greater trochanter. -Appetite poor despite dexamethasone. Significant weight loss in the last 2 weeks. -Recent splanchnic vein thrombosis. Reviewed the pathology with the patient and his family. Given his performance status, significant weight loss and rapid progression of disease, recommended hospice care. Patient and family expressed an understanding and agreement. Plan: -Complete palliative radiation. -Rx apixaban 5 mg twice daily. -Referral back to home hospice care. Portions of this documentation were copied and pasted from previous office visit notes in order to provide a cohesive continuity of the history. The note has been reviewed and edited and updated as necessary. I spent a total of 35 minutes on the date of the service which included preparing to see the patient, [id number] patient care, completing clinical documentation, obtaining and/or reviewing separately obtained history, performing a medically appropriate examination, counseling and educating the patient/family/caregiver, ordering medications, tests, or procedures, communicating with other HCPs (not separately reported), and communicating results to the patient/family/caregiver. Trenton A Masci, DO documented in this encounter [facility] 07-05-2023 Miscellaneous Notes Palliative Medicine Care Coordination Follow up Phone Call Patient identified by name and : Yes Spoke to: Rach Nurse calling to follow up on prescriptions and bowels Does patient feel an improvement in symptoms: No BM yet Discussed that she should give PRN Dulcolax suppository today along with Senna 1 tab BID, she is also considering Miralax use. Last BM was 4 days ago and it was a small BM. Also educated , Rach that new Gabapentin Rx was sent - change to 400 mg capsule to give one capsule three times a day. agreeable. Previous Rx as 100 mg strength. Next scheduled outreach call: as needed. Nurse encouraged patient to call with any questions/concerns/symptom related issues. Patient confirmed having contact numbers for the office and confidential investigator. [facility] Programmer Developer Please send Senna Rx to pharmacy Thank you, CHESTER Fitch, [facility] Programmer Developer Collaborated with Minnie Kumar: Yes, 8.6 mg BID, and may advance to 2 AM and 1 HS if still not enough. Ask him if any straining to see if we need to also add softner. Spoke to spouse. Agree with plan to increase Senna. She doesn't think that he is straining. Discussed softener to add if he is would be miralax daily. will call office if ineffective. Asking for updated script of Senna Patient phones requesting refills as follows: Requested Prescriptions Pending Prescriptions Disp Refills senna (SENOKOT) 8.6 mg tab 60 tablet 0 Sig: Take 1 tablet by mouth two times a day. Please review and advise. Debbie Sierra RN Care Coordination Triage Note [facility] Situation: Patient reports Bowel symptoms Background: Disease, current pertinent medications/treatments Went to ED this weekend related to abdominal pain. CT abdomen shows stool burden. Assessment: Taking senna 8.6mg Daily x5 days. Stopped. Took suppository x2 days. Had small BM. Has not taken any laxatives today. Denies nausea/ emesis. Please advise on bowel regimen? Recommendations: Per RN, patient directed to: Defer to provider on bowel regimen. Scripts to be sent to [facility] in [facility]. Debbie Sierra RN July 04, 2023 1:42 PM Galindo Danna Fitzgerald is calling Minnie Kumar APRN.CNP today regarding Symptom Management Reporting patient is still constipated, per CT scan done yesterday. Requesting call back from nurse to advise. Patient has been identified by name and birthdate. Requesting response back: call on cell [phone] (cell) Kalie Knutson July 04, 2023 documented in this encounter [facility] 07-05-2023 Miscellaneous Notes Patient phones requesting refills as follows: Patient confirmed via my chart that he is taking 1200 mg in 24 hours. (Was using 100 mg capsules), will notify patient to change to 400 mg capsule strength Last [facility] med visit on 06/22/23 Future appt 07/26/23 Requested Prescriptions Pending Prescriptions Disp Refills gabapentin (NEURONTIN) 400 mg capsule 90 capsule 0 Sig: Take 1 capsule by mouth three times a day for 30 days. Please review and advise. Dionna Yeboah RN documented in this encounter [facility] 07-04-2023 Miscellaneous Notes Patient is scheduled for an OV with Dr. Jaquez tomorrow. Patient is not on active treatment at this time. Will discuss the treatment plan with Dr. Jaquez after tomorrow's OV. Laquita Engel RN I spoke with patient when he arrived for radiation. Pt reports that bilateral foot numbness is intermittent and is accompanied by feet being cool to touch and appearing bluish. And then feet will be warm and pink and not as numb. Pt reports that the leg pain that his significant other described is the same pain that he has been experiencing, it starts at the right side of his pelvis/sacrum and radiates down his right leg. This is more tender since his CT scan yesterday but pt does not feel that it has changed in character or that there is an acute injury. I spoke with Rach to get an update on patient, patient is currently sleeping. Patient's numbness/coldness in bilateral feet has resolved this morning. They deny any swelling in feet, ankles, legs. Pt has started Prilosec this morning, has not started Pepcid that was recommended by there ED yesterday but plans to. Recommend to avoid spicy food, food high in fat and acidic foods at this time. Also advised that Decadron needs to be taken with food, if he has not already been doing so. Pt is having increased right thigh pain since yesterday when he was placed on the CT table. Patient went to [facility] ER last night due to numb feet, breathing issues/chest pain. Patient had been discharged. documented in this encounter [facility] 06-29-2023 Note HNO ID: [id number] Author: JANNETH PIERRE MD Service: Radiation Oncology Author Type: Physician Type: Progress Notes Filed: 06/30/2023 08:52 Note Text: GALINDO FITZGERALD [id number] 06/29/2023 [facility] Department of Radiation Oncology [facility] RADIATION ONCOLOGY SIMULATION NOTE DATE OF SIMULATION: 06/29/2023 MACHINE: Siemens Definition CT Simulator Diagnosis: Bone metastasis in the right hip and pain. AREA:Rt Hip PATIENT POSITION: Supine. CONTRAST: None PROTOCOL: None BLOCKING: Custom blocking to be determined at treatment planning. FIXATION DEVICE: In order to achieve accurate and reproducible treatments, the patient is to be immobilized with AIO orfit system. PROCEDURE: A time-out was conducted and recorded by the therapist. Patient was simulated on the CT scanner for external beam radiation therapy. Treatment site was marked by the simulation therapist. ASSESSMENT/PLAN: Patient tolerated simulation procedure well. Treatments will be initiated after treatment planning. The patient is scheduled for a verification simulation on the treatment machine to ensure proper set-up and field arrangement is correct prior to the first treatment of primary and boost rodríguez if applicable. Electronically Signed Janneth Pierre M.D./cinda 48:52 AM [facility] 06-29-2023 Note HNO ID: [id number] Author: JANNETH PIERRE MD Service: Radiation Oncology Author Type: Physician Type: Progress Notes Filed: 06/30/2023 08:51 Note Text: GALINDO FITZGERALD [id number] 06/29/2023 [facility] Department of Radiation Oncology Treatment Planning Note For reasons stated in the consult note, Galindo Fitzgerald is a candidate for radiation therapy. Based on review and interpretation of the relevant diagnostic studies together with the exam findings, Galindo Fitzgerald was simulated on 06/29/2023 at which time the target volume and/or requisite rodríguez were delineated, as indicated in the simulation note, to be treated according to the prescription. After reviewing the treatment plan with dosimetry, the plan was approved to deliver the prescribed course of radiation to the target area to allow for the best isodose distribution, treating to the 100% isodose line with 15MV and 2 rodríguez. Custom MLC wedges asym jaws were the treatment device(s) used to shape/modify the beams. Special consideration to these and other structures was given in light of the potential for increased toxicities of treatment of multiple sites concurrently. A completed summary of this plan dated 06/30/2023 incorporated herein by reference includes dose, beam arrangements, energy, blocking, isodose distribution, and/or ports and DVH. Electronically Signed Janneth Pierre M.D. 48:51 AM [facility] 06-29-2023 Miscellaneous Notes Palliative Medicine Care Coordination Follow up Phone Call Patient identified by name and : Yes Spoke to: caregiver Nurse calling to follow up on pain and anxiety medication Does patient feel an improvement in symptoms: yes Discussed They picked up ativan and paid out of pocket cost was 10$. Not needing alternate at this time. Pain is better controlled with fentanyl patch. Oxycodone 10mg- taking about every 5 hours. Has pain still with movement. Yesterday was a rough day with appointments. They plan to start radiation tomorrow for hip hopeful this will give him more relief. Next scheduled outreach call: PRN Nurse encouraged patient to call with any questions/concerns/symptom related issues. Patient confirmed having contact numbers for the office and confidential investigator. documented in this encounter [facility] 06-29-2023 Miscellaneous Notes Follow up call in separate encounter Received call from spouse there was issues with medications. Received text from pharmacy. Nurse call to pharmacy to see what is needed. Spouse would like to pay out of pocket so he gets the oxycodone today. Spoke to pharmacy PA is needed for ativan. Complete is separate encounter. They will have oxycodone ready in 20 minutes. Relayed information to [facility] Spoke to spouse, let her know refill sent it. Expect that patch should help with pain in next 1-2 days. Nurse follow up later this week to follow up on pain. She will call if they have any issues before next follow up call [facility] PDMP website checked and validated. All prescriptions have been APPROPRIATELY filled. No suspicious activity was identified. Rxs signed as pended. Minnie Kumar CNP Care Coordination Triage Note [facility] Situation: reports pain, has not been controlled over the weekend. Background: Visit 06/23 saw provider. Med adjustments made. Oncall this weekend was not able to get fentanyl patches started until Tuesday night. Gabapentin 400 mg TID Oxycodone- using 10 mg 4-6 hours Increase fentanyl patch 25 mcg/ hour q 72 hours Assessment: Constant pain per , patient was asleep and not able to talk to nurse had rough night. Taking oxy every 4 hours. Pain is 8/10. Told pain is all over. Brings down to 4-5/10- taking 6x per day. 2# tablets remaining, last dose at 730AM Started patch fentanyl 25mcg - Tuesday night Decadron 4mg BID- taking Gabapentin 400mg TID - taking Ativan- hs- needs refill Baclofen- not taking at this time no hiccups Recommendations: Per needs refills of oxycodone, has only 2# tablets remaining. Please advise on dose frequency. Needs refill on ativan. Patient phones requesting refills as follows: Requested Prescriptions Pending Prescriptions Disp Refills LORazepam (ATIVAN) 0.5 mg 60 tablet 0 Sig: Take 1 tablet by mouth two times a day as needed for up to 30 days. oxyCODONE IR (ROXICODONE) 10 mg tab 90 tablet 0 Sig: Take 1 tablet by mouth every 4 hours as needed for pain for up to 15 days. Please review and advise. Debbie Sierra RN June 27, 2023 8:46 AM Patient spouse Rach calling to report an increase of pain 8/10 in the last 48 hours. Return call to Rach at [phone] documented in this encounter [facility] 06-29-2023 History of Present illness Narrative GALINDO FITZGERALD [id number] 06/29/2023 [facility] Department of Radiation Oncology [facility] RADIATION ONCOLOGY SIMULATION NOTE DATE OF SIMULATION: 06/29/2023 MACHINE: Siemens Definition CT Simulator Diagnosis: Bone metastasis in the right hip and pain. AREA:Rt Hip PATIENT POSITION: Supine. CONTRAST: None PROTOCOL: None BLOCKING: Custom blocking to be determined at treatment planning. FIXATION DEVICE: In order to achieve accurate and reproducible treatments, the patient is to be immobilized with AIO orfit system. PROCEDURE: A time-out was conducted and recorded by the therapist. Patient was simulated on the CT scanner for external beam radiation therapy. Treatment site was marked by the simulation therapist. ASSESSMENT/PLAN: Patient tolerated simulation procedure well. Treatments will be initiated after treatment planning. The patient is scheduled for a verification simulation on the treatment machine to ensure proper set-up and field arrangement is correct prior to the first treatment of primary and boost rodríguez if applicable. Electronically Signed Janneth Pierre M.D./cinda 48:52 AM documented in this encounter [facility] 06-29-2023 History of Present illness Narrative GALINDO FITZGERALD Danna [id number] 06/29/2023 [facility] Department of Radiation Oncology Treatment Planning Note For reasons stated in the consult note, Galindo Fitzgerald is a candidate for radiation therapy. Based on review and interpretation of the relevant diagnostic studies together with the exam findings, Galindo Fitzgerald was simulated on 06/29/2023 at which time the target volume and/or requisite rodríguez were delineated, as indicated in the simulation note, to be treated according to the prescription. After reviewing the treatment plan with dosimetry, the plan was approved to deliver the prescribed course of radiation to the target area to allow for the best isodose distribution, treating to the 100% isodose line with 15MV and 2 rodríguez. Custom MLC wedges asym jaws were the treatment device(s) used to shape/modify the beams. Special consideration to these and other structures was given in light of the potential for increased toxicities of treatment of multiple sites concurrently. A completed summary of this plan dated 06/30/2023 incorporated herein by reference includes dose, beam arrangements, energy, blocking, isodose distribution, and/or ports and DVH. Electronically Signed Janneth Pierre M.D. 48:51 AM documented in this encounter [facility] 06-28-2023 Note HNO ID: [id number] Author: JANNETH PIERRE MD Service: ? Author Type: Physician Type: Progress Notes Filed: 06/28/2023 15:05 Note Text: Radiation Oncology - On Treatment Review (OTR) Note PATIENT NAME: Galindo Fitzgerald PATIENT DIAGNOSIS: Numerous brain metastases. COURSE: palliative AREA TREATED: Brain CURRENT DOSE: 1200 cGy in 4 fx PLANNED DOSE: 3000 cGy in 10 fx SUBJECTIVE: He denies any headaches. However, he has right hip pain for a few months and now it's significantly worse. X-ray of the right hip on 06/17/23 showed Lytic lesion in the right greater trochanter. EXAM: KPS: 70 General Appearance: Alert and oriented. No acute distress. Radiation dermatitis: No IMAGING/LAB RESULTS: None Treatment chart checked: Yes Patient treatment site reviewed and verified:Yes Port films reviewed and current:Yes Medications started: None ASSESSMENT/PLAN: Clinically stable. No signs of toxicity. Continue radiation treatment as planned. His right hip pain is significantly worse and he has a large lytic lesion in the right greater trochanter. I offer palliative radiation treatment there and he wishes to pursue. I explained the rationale, benefits, alternative management options and potential complications of radiation treatment to the patient and he understands and agrees to proceed. It was explained and understood that other personnel such as radiation therapists, bog cutter, and physicists will participate in planning and delivery of radiation treatment. Permanent tattoo echols will be placed to aid with positioning for daily treatment and the patient consented. Patient will have a simulation procedure tomorrow. Janneth Pierre MD [facility] 06-28-2023 Note HNO ID: [id number] Author: LESLIE SAHA RN Service: ? Author Type: Registered Nurse Type: Progress Notes Filed: 06/28/2023 15:05 Note Text: Radiation Therapy - Nursing Note (OTV) PATIENT NAME: Galindo Fitzgerald PATIENT June 28, 2023 [facility] [place] FACILITY/LOCATION: [place] NURSING NOTE TYPE: HEAD AND NECK Subjective Data Pain in Rt Hip- rated on scale 1-10 as a 10, radiate to knee with use. Rt arm pit pain- rated as 10 when used. Constant. Taking Oxycontin but off today for liver biopsy. Took at lunch. Has Fentanyl patch on. Additional Data Do you want to see a Loan Closer? No Status: Patient is male Stress Scale: On a scale of 0 to 10, what number best describes how much distress you have experienced in the past week?(0 being no distress and 10 being extreme distress) 7 Social work notified: no Nursing Assessment Fatigue: moderate; causing difficulty performing some activities Appetite: good Nutritional Intake: Regular oral intake. and Oral intake with protein supplements, 2 cans of daily. Weight Gain/Loss: No Ambulatory weight history: Last 6 Encounter Wt Readings: Date: Wt: 06/22/2023 71 kg (156 lb 8 oz) 06/20/2023 69.4 kg (153 lb) 06/17/2023 71.4 kg (157 lb 8 oz) 06/15/2023 68 kg (150 lb) 06/08/2023 70.4 kg (155 lb 3.2 oz) 06/07/2023 71.7 kg (158 lb) Nausea:None Vomiting: None Bowel Function: constipation 1 - bowel movement every 2 - 3 days Erythema/Hyperpigmentation:none Desquamation:none Rash:none Skin Care: None Skin Sensation: Within Normal Limits Focused Assessment GENERAL: No additional assessment areas noted. SIGNED by: Leslie Saha RN [facility] 06-28-2023 Miscellaneous Notes Collaborated with Minnie Kumar Try xanax 0.25 mg BID PRN Minnie Kumar EMPLOYEE RELATIONS CONSULTANT Left message with spouse to see if they would be willing to try alternative medication for anxiety Natividad Sierra RN Palliative Medicine Phone: [phone] From: [facility] Review Team Regarding: An Update on Your Request Fax received that there was a dismissal of drug coverage Call to follow up, PA was not approved because preferred drugs not tried. Insurance prefers following drugs first: Buspirone, Clonazepam, Alprazolam Diazepam Please advise Prior Authorization Documentation Prior authorization requested for: MEDICATION ativan Submitted via Cover My Meds/Kim Samuel Fitzgerald (Kim: [id number]) Insurance Company Name: [employer] Pharm[facility] Name: [facility] Authorization approval #: x Dates of Approval: from x to x Patient Assistance Needed: No Time Spent 30 Debbie Sierra RN June 27, 2023 documented in this encounter [facility] 06-25-2023 Miscellaneous Notes I received a page for the patient and spoke on the phone with his , Rach. Briefly, he is a 73-year-old male with widely metastatic cancer (pending confirmation of primary site), currently on a course of WBRT and followed by [facility] (Minnie Kumar CNP) for pain management. Rach stated that the script for fentanyl TD 25 mcg/hr, sent to to their pharmacy of choice on 06/23/23, was never received. She needed a new script sent today. The following prescription(s) will be transmitted electronically to the patient's pharmacy of choice. Requested Prescriptions Pending Prescriptions Disp Refills fentaNYL (DURAGESIC) 25 mcg/hr 5 Patch 0 Sig: Apply 1 Patch as directed every 72 hours for 15 days. Redd Miranda MD, FACP, [facility] Pager [phone] June 25, 2023 1:28 PM CC: [facility] Minnie Kumar CNP documented in this encounter [facility] 06-22-2023 Note HNO ID: [id number] Author: JANNETH PIERRE MD Service: ? Author Type: Physician Type: Progress Notes Filed: 06/24/2023 11:51 Note Text: Radiation Oncology - New Patient/Consult Note PATIENT NAME: Galindo Fitzgerald PATIENT REQUESTING PROVIDER: Dr. Trenton Jaquez DIAGNOSIS: Numerous brain metastases. HPI: 73 year old male who presents with above diagnosis, for an opinion regarding the role of radiation therapy in the management of the patient's disease. Final recommendations will be communicated back to the requesting physician by way of the shared medical record, or letter to requesting physician via US mail. 73 year old man, a former 15 pack-year smoker quitting smoking in 1995, who had low back pain. 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 MRI lumbar spine showed abnormal bone marrow signal intensity at L2 and L3 highly suggestive of metastatic disease or multiple myeloma. Findings suggesting retroperitoneal lymphadenopathy as well as lesions within the liver suggesting metastatic disease to the lymph nodes as well as the liver. CT C/A/P on 06/10/23 showed right upper lobe lung mass favoring primary lung cancer. There were multiple bilateral small lung nodules highly suspicious for metastatic disease. There were metastatic right hilar and paratracheal lymphadenopathy. Lytic osseous metastases involving the T8 vertebral body bilateral fourth rib and left night rib. Widespread abdominopelvic neoplasm, including bilobar hepatic masses, extensive abdominal lymphadenopathy, a right adrenal mass,multiple lytic bone metastases, and suspected carcinomatosis. MRI brain on 06/20/23 showed numerous supratentorial and infratentorial brain metastasis. The largest lesion measured 2.1 x 1.4 cm in the left temporal-occipital lobe. He has decrease appetite and lost 35 pounds since April. He denies any headaches or nausea. He had an episode of confusion for a short time last week. He denies any confusion or any problems with speech now. ALLERGIES No Known Allergies Current Outpatient Medications on File Prior to Visit Medication Sig hyoscyamine sublingual (LEVSIN/SL) 0.125 mg Dissolve 0.125 mg under the tongue every 2 hours as needed for Secretions. Take 1 to 2 tablets every 2 hours as needed for moderate(4-6) to severe(7-10) secretions LORazepam (ATIVAN) 1 mg tablet Take 0.5 mg by mouth every 4 hours as needed for anxiety. Take a half tablet to 1 whole tablet every 4 hours as needed for moderate(4-6) to severe(7-10) anxiety haloperidol lactate (HALDOL) 2 mg/mL solution Take 2 mg by mouth every 4 hours as needed for Agitation or nausea/vomiting. Take 0.5 ml to 1 ml every 4 hours as needed for moderate(4-6) to severe(7-10) N/V or restlessness bisacodyl (DULCOLAX, BISACODYL,) 10 mg supp 10 mg by RECTAL route once daily as needed for constipation. Take 1 daily as needed for constipation if no BM using senna for 3 days or unable to take senna by mouth multivitamin tablet Take 1 tablet by mouth once daily. dexAMETHasone (DECADRON) 4 mg tablet Take 1 tablet by mouth two times a day with meals. fentaNYL (DURAGESIC) 12 mcg/hr pt72 Apply 1 Patch as directed every 72 hours for 6 days. Do not cut patch. fentaNYL (DURAGESIC) 12 mcg/hr pt72 Apply 1 Patch as directed every 72 hours for 9 days. Do not cut patch. oxyCODONE IR (ROXICODONE) 10 mg tab Take 10 mg by mouth every 2 hours as needed for pain. senna (SENOKOT) 8.6 mg tab Take 1 tablet by mouth once daily. gabapentin (NEURONTIN) 100 mg capsule Take 4 capsules by mouth three times a day. hydrOXYchloroQUINE (PLAQUENIL) 200 mg tablet Take 200 mg by mouth every 12 hours. No current facility-administered medications on file prior to visit. PAST MEDICAL HISTORY Diagnosis Date Arthritis Prior radiation therapy, collagen vascular disease, or inflammatory bowel disease: Rheumatoid arthritis on Plaquenil Any implanted or external electric devices? No PAST SURGICAL HISTORY Procedure Laterality Date KNEE LEFT OP SURGERY REVISE MEDIAN N/CARPAL TUNNEL SURG Right FAMILY HISTORY Problem Relation Age of Onset Arthritis Mother Pancreatic Cancer Father Alzheimer's Disease Father Heart disease Brother Lung Cancer Brother Diabetes Brother Arthritis Brother Kidney Disease Brother Diabetes Other Arthritis Other Social History Tobacco Use Smoking status: Former Packs/day: 1.00 Years: 15.00 Additional pack years: 0.00 Total pack years: 15.00 Types: Cigarettes Start date: 1970 Quit date: 1995 Years since quittin.1 Smokeless tobacco: Never Vaping Use Vaping Use: Never used Substance Use Topics Alcohol use: Yes Alcohol/week: 4.0 standard drinks of alcohol Types: 4 Shots of liquor per week Comment: occ Drug use: Never COMPLETE REVIEW OF SYSTEMS: GENERAL: Recent weight loss of 35 pounds. HEENT: denies ANGEL, change in hearing or vision, no other ENT complaints NECK: Bilateral n (more content not included)... [facility] 06-22-2023 Note HNO ID: [id number] Author: JANNETH PIERRE MD Service: Radiation Oncology Author Type: Physician Type: Progress Notes Filed: 06/23/2023 08:06 Note Text: GALINDO FITZGERALD Danna [id number] 06/22/2023 [facility] Department of Radiation Oncology [facility] RADIATION ONCOLOGY SIMULATION NOTE DATE OF SIMULATION: 06/22/2023 MACHINE: Siemens Definition CT Simulator Diagnosis: Numerous brain metastases AREA:Whole Brain. PATIENT POSITION: Supine. CONTRAST: None PROTOCOL: None BLOCKING: Custom blocking to be determined at treatment planning. FIXATION DEVICE: In order to achieve accurate and reproducible treatments, the patient is to be immobilized with AIO orfit system and custom 3 point mask. PROCEDURE: A time-out was conducted and recorded by the therapist. Patient was simulated on the CT scanner for external beam radiation therapy. Treatment site was marked by the simulation therapist. ASSESSMENT/PLAN: Patient tolerated simulation procedure well. Treatments will be initiated after treatment planning. The patient is scheduled for a verification simulation on the treatment machine to ensure proper set-up and field arrangement is correct prior to the first treatment of primary and boost rodríguez if applicable. Electronically Signed Janneth Pierre M.D./cinda 48:06 AM [facility] 06-22-2023 Note HNO ID: [id number] Author: JANNETH PIERRE MD Service: Radiation Oncology Author Type: Physician Type: Progress Notes Filed: 06/23/2023 08:06 Note Text: GALINDO FITZGERALD Danna [id number] 06/22/2023 [facility] Department of Radiation Oncology Treatment Planning Note For reasons stated in the consult note, Galindo Fitzgerald is a candidate for radiation therapy. Based on review and interpretation of the relevant diagnostic studies together with the exam findings, Galindo Fitzgerald was simulated on 06/22/2023 at which time the target volume and/or requisite rodríguez were delineated, as indicated in the simulation note, to be treated according to the prescription. After reviewing the treatment plan with dosimetry, the plan was approved to deliver the prescribed course of radiation to the target area to allow for the best isodose distribution, treating to the 98% isodose line with 6MV and 2 rodríguez. Custom MLC asym jaws were the treatment device(s) used to shape/modify the beams. A completed summary of this plan dated 06/23/2023 incorporated herein by reference includes dose, beam arrangements, energy, blocking, isodose distribution, and/or ports and DVH. Electronically Signed Janneth Pierre M.D. 48:06 AM [facility] 06-22-2023 Nurse Note Radiation Therapy - Nursing Note (Consult) PATIENT NAME: Galindo Fitzgerald PATIENT June 22, 2023 [facility] [place] FACILITY/LOCATION: [place] Chief Complaint: met cancer to right hip and leg Reason for visit: Consult. Referring physician: Internal provider Dr Jaquez Subjective Data: see pain assessment Additional Data Do you want to see a Loan Closer? No Are you interested in information about fertility? No Status: Patient is male Stress Scale: On a scale of 0 to 10, what number best describes how much distress you have experienced in the past week?(0 being no distress and 10 being extreme distress) 8 Social work notified: Pt denied need to see social work nurse at this time. SIGNED by: Alissa Mon RN documented in this encounter [facility] 06-22-2023 History of Present illness Narrative Radiation Oncology - New Patient/Consult Note PATIENT NAME: Galindo Fitzegrald PATIENT REQUESTING PROVIDER: Dr. Trenton Jaquez DIAGNOSIS: Numerous brain metastases. HPI: 73 year old male who presents with above diagnosis, for an opinion regarding the role of radiation therapy in the management of the patient's disease. Final recommendations will be communicated back to the requesting physician by way of the shared medical record, or letter to requesting physician via [place] mail. 73 year old man, a former 15 pack-year smoker quitting smoking in 1995, who had low back pain. 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 MRI lumbar spine showed abnormal bone marrow signal intensity at L2 and L3 highly suggestive of metastatic disease or multiple myeloma. Findings suggesting retroperitoneal lymphadenopathy as well as lesions within the liver suggesting metastatic disease to the lymph nodes as well as the liver. CT C/A/P on 06/10/23 showed right upper lobe lung mass favoring primary lung cancer. There were multiple bilateral small lung nodules highly suspicious for metastatic disease. There were metastatic right hilar and paratracheal lymphadenopathy. Lytic osseous metastases involving the T8 vertebral body bilateral fourth rib and left night rib. Widespread abdominopelvic neoplasm, including bilobar hepatic masses, extensive abdominal lymphadenopathy, a right adrenal mass,multiple lytic bone metastases, and suspected carcinomatosis. MRI brain on 06/20/23 showed numerous supratentorial and infratentorial brain metastasis. The largest lesion measured 2.1 x 1.4 cm in the left temporal-occipital lobe. He has decrease appetite and lost 35 pounds since April. He denies any headaches or nausea. He had an episode of confusion for a short time last week. He denies any confusion or any problems with speech now. ALLERGIES No Known Allergies Current Outpatient Medications on File Prior to Visit Medication Sig hyoscyamine sublingual (LEVSIN/SL) 0.125 mg Dissolve 0.125 mg under the tongue every 2 hours as needed for Secretions. Take 1 to 2 tablets every 2 hours as needed for moderate(4-6) to severe(7-10) secretions LORazepam (ATIVAN) 1 mg tablet Take 0.5 mg by mouth every 4 hours as needed for anxiety. Take a half tablet to 1 whole tablet every 4 hours as needed for moderate(4-6) to severe(7-10) anxiety haloperidol lactate (HALDOL) 2 mg/mL solution Take 2 mg by mouth every 4 hours as needed for Agitation or nausea/vomiting. Take 0.5 ml to 1 ml every 4 hours as needed for moderate(4-6) to severe(7-10) N/V or restlessness bisacodyl (DULCOLAX, BISACODYL,) 10 mg supp 10 mg by RECTAL route once daily as needed for constipation. Take 1 daily as needed for constipation if no BM using senna for 3 days or unable to take senna by mouth multivitamin tablet Take 1 tablet by mouth once daily. dexAMETHasone (DECADRON) 4 mg tablet Take 1 tablet by mouth two times a day with meals. fentaNYL (DURAGESIC) 12 mcg/hr pt72 Apply 1 Patch as directed every 72 hours for 6 days. Do not cut patch. fentaNYL (DURAGESIC) 12 mcg/hr pt72 Apply 1 Patch as directed every 72 hours for 9 days. Do not cut patch. oxyCODONE IR (ROXICODONE) 10 mg tab Take 10 mg by mouth every 2 hours as needed for pain. senna (SENOKOT) 8.6 mg tab Take 1 tablet by mouth once daily. gabapentin (NEURONTIN) 100 mg capsule Take 4 capsules by mouth three times a day. hydrOXYchloroQUINE (PLAQUENIL) 200 mg tablet Take 200 mg by mouth every 12 hours. No current facility-administered medications on file prior to visit. PAST MEDICAL HISTORY Diagnosis Date Arthritis Prior radiation therapy, collagen vascular disease, or inflammatory bowel disease: Rheumatoid arthritis on Plaquenil Any implanted or external electric devices? No PAST SURGICAL HISTORY Procedure Laterality Date KNEE LEFT OP SURGERY REVISE MEDIAN N/CARPAL TUNNEL SURG Right FAMILY HISTORY Problem Relation Age of Onset Arthritis Mother Pancreatic Cancer Father Alzheimer's Disease Father Heart disease Brother Lung Cancer Brother Diabetes Brother Arthritis Brother Kidney Disease Brother Diabetes Other Arthritis Other Social History Tobacco Use Smoking status: Former Packs/day: 1.00 Years: 15.00 Additional pack years: 0.00 Total pack years: 15.00 Types: Cigarettes Start date: 1970 Quit date: 1995 Years since quittin.1 Smokeless tobacco: Never Vaping Use Vaping Use: Never used Substance Use Topics Alcohol use: Yes Alcohol/week: 4.0 standard drinks of alcohol Types: 4 Shots of liquor per week Comment: occ Drug use: Never COMPLETE REVIEW OF SYSTEMS: GENERAL: Recent weight loss of 35 pounds. HEENT: denies ANGEL, change in hearing or vision, no other ENT complaints NECK: Bilateral neck masses. RESPIRATORY: no cough, no wheezing or shortness of breath CARDIOVASCULAR: no chest pain, no palpitations GI: normal appetite, tolerating PO well, BMs normal, and no abdominal pain : urination is normal MUSCULOSKELETAL: arthritis. SKIN: no rash HEMATOLOGY/LYMPHOLOGY: negative for prolonged bleeding, no swollen lymph nodes NEURO: no numbness or paresthesias and no weakness of the extremities PHYSICAL EXAM: VS: BP 120/74 Pulse 71 Temp 36.7 C (98 F) (Temporal) Wt 71 kg (156 lb 8 oz) SpO2 96% BMI 23.58 kg/m KPS: 80 General Appearance: Alert and oriented. No acute distress. HEENT: NCAT. Sclera anicteric. EOMI. Neck: Normal ROM. Chest: No respiratory distress. Musculoskeletal: Normal ROM in extremities. Neuro: Alert and oriented x 3. Speech fluent. Able to recite his last name backwards. Gait normal. No focal deficits. Hematologic: No signs of active bleeding. RADIOLOGY/LABORATORY DATA: ASSESSMENT AND PLAN: 73 year old man with numerous brain metastases. He also has widespread lung, liver, bone metastases and extensive abdominal lymphadenopathy, and a right adrenal mass. I recommend whole brain radiation treatment. Although he hasn't had a biopsy confirmation of his malignancy yet, I offer urgent radiation treatment as he had a transient episode of confusion. As he has suspicious widespread lesions in the multiple organs, clinical suspicion of malignancy is very high. I explained this to the patient and his family and they expressed understandings and chose to proceed with whole brain radiation treatment. I explained the rationale, benefits, alternative management options and potential complications of radiation treatment to the patient and he understands and agrees to proceed. It was explained and understood that other personnel such as radiation therapists, bog cutter, and physicists will participate in planning and delivery of radiation treatment. Patient will have a simulation procedure today. Thank you very much for allowing us to participate in his care. Signed by: Janneth Pierre MD cc: Edna Pulliam [facility] [place] [address] Trenton Jaquez [address] [facility] [id number] documented in this encounter [facility] 06-22-2023 Note HNO ID: [id number] Author: MINNIE KUMAR APRN.EMPLOYEE RELATIONS CONSULTANT Service: ? Author Type: Nurse Practitioner Type: Progress Notes Filed: 06/30/2023 21:11 Note Text: PALLIATIVE MEDICINE AT HOME INITIAL CONSULT SERVICE DATE: 06/22/2023 Referring Physician: Trenton MONTANO DO Primary Physician: Edna Pulliam DO IDENTIFICATION AND INTRODUCTION: Galindo Fitzgerald is a 73 year old male This visit took place In Person; Place of service: Private Home (POS 12). The patient is being seen with spouse Rach REASON FOR CONSULT: Pain management Subjective Galindo Fitzgerald is a 73 year old male with rheumatoid arthritis who developed back pain in January 2023- thought it was arthritis, CT chest by PCP in May 2023 revealed concerning lung mass and referred to oncology, further scans revealed lytic bone lesion of right femur, liver lesion left lobe, retroperitoneal lymphadenopathy and L2/L3 mets, currently undergoing more work-up. On home visit today- Pt was on hospice for a few days but then revoked because he decided he wants more diagnostics and cancer treatments. Appointment today with radiation oncology at 1 pm today to discuss options for treatment to brain mets. Liver bx scheduled for 06/28/23 Rib pain- bilaterally up and down both side of rib cage when he coughs sharp pain Pain right upper chest/towards axilla when reaching for something rated 10, pain meds do not help. Right hip pain constant, rated 10, no decrease in pain with pain meds. Aching and sharp, + burning. Radiates into back, buttocks, groin. Frequent hiccups the last 3-4 days. No nausea. Fentanyl 12.5 mg patch started 7 days ago. Moving better, sleeping better, getting out of bed more but pain still uncontrolled needing breakthrough med. Oxycodone- using 10 mg 4-6 hours. Averaging 5 per day. Ativan 1 mg taking every night at bedtime. Aroung 10 PM Sometimes at nap during the day. Sometimes takes 3rd dose Intake, weights- appetite poor to fair, has been on dexamethasone 4 days. Has lost 33# over 3 months. Bowels- Using Senna prn, suppository prn. Had diarrhea 2 days ago, due to taking suppository 2 days in a row. Nausea- none Abd pain- none Haldol for hiccups not helping. Severe back pain started thought it was arthritis- then diagnosed with cancer. 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 Palliative radiation right hip/lumbar? 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 Social History Tobacco Use Smoking status: Former Packs/day: 1.00 Years: 15.00 Additional pack years: 0.00 Total pack years: 15.00 Types: Cigarettes Start date: 1970 Quit date: 1995 Years since quittin.1 Smokeless tobacco: Never Vaping Use Vaping Use: Never used Substance Use Topics Alcohol use: Yes Alcohol/week: 4.0 standard drinks of alcohol Types: 4 Shots of liquor per week Comment: occ Drug use: Never PAST MEDICAL HISTORY: PAST MEDICAL HISTORY Diagnosis Date Arthritis PAST SURGICAL HISTORY: PAST SURGICAL HISTORY Procedure Laterality Date KNEE LEFT OP SURGERY REVISE MEDIAN N/CARPAL TUNNEL SURG Right CURRENT MEDICATIONS: hyoscyamine sublingual (LEVSIN/SL) 0.125 mg Dissolve 0.125 mg under the tongue every 2 hours as needed for Secretions. Take 1 to 2 tablets every 2 hours as needed for moderate(4-6) to severe(7-10) secretions LORazepam (ATIVAN) 1 mg tablet Take 0.5 mg by mouth every 4 hours as needed for anxiety. Take a half tablet to 1 whole tablet every 4 hours as needed for moderate(4-6) to severe(7-10) anxiety haloperidol lactate (HALDOL) 2 mg/mL solution Take 2 mg by mouth every 4 hours as needed for Agitation or nausea/vomiting. Take 0.5 ml to 1 ml every 4 hours as needed for moderate(4-6) to severe(7-10) N/V or restlessness bisacodyl (DULCOLAX, BISACODYL,) 10 mg supp 10 mg by RECTAL route once daily as needed for constipation. Take 1 daily as needed for constipation if no BM using senna for 3 days or unable to take senna by mouth multivitamin tablet Take 1 tablet by mouth once daily. dexAMETHasone (DECADRON) 4 mg tablet Take 1 tablet by mouth two times a day with meals. fentaNYL (DURAGESIC) 12 mcg/hr pt72 Apply 1 Patch as directed every 72 hours for 6 days. Do not cut patch. fentaNYL (DURAGESIC) 12 mcg/hr pt72 Apply 1 Patch as directed every 72 hours for 9 days. Do not cut patch. oxyCODONE IR (ROXICODONE) 10 mg tab Take 10 mg by mouth every 2 hours as needed for pain. senna (SENOKOT) 8.6 mg tab Take 1 tablet by mouth once daily. gabapentin (NEURONTIN) 100 mg capsule Take 4 capsules by mouth three times a day. hydrOXYchloroQUINE (PLAQUENIL) 200 mg tablet Take 200 mg by mouth every 12 hours. ALLERGIES: ALLERGIES No Known Allergies FAM (more content not included)... [facility] 06-22-2023 History of Present illness Narrative PALLIATIVE MEDICINE AT HOME INITIAL CONSULT SERVICE DATE: 06/22/2023 Referring Physician: Trenton MONTANO DO Primary Physician: dEna Pulliam DO IDENTIFICATION AND INTRODUCTION: Galindo Fitzgerald is a 73 year old male This visit took place In Person; Place of service: Private Home (POS 12). The patient is being seen with spouse Rach REASON FOR CONSULT: Pain management Subjective Galindo Fitzgerald is a 73 year old male with rheumatoid arthritis who developed back pain in January 2023- thought it was arthritis, CT chest by PCP in May 2023 revealed concerning lung mass and referred to oncology, further scans revealed lytic bone lesion of right femur, liver lesion left lobe, retroperitoneal lymphadenopathy and L2/L3 mets, currently undergoing more work-up. On home visit today- Pt was on hospice for a few days but then revoked because he decided he wants more diagnostics and cancer treatments. Appointment today with radiation oncology at 1 pm today to discuss options for treatment to brain mets. Liver bx scheduled for 06/28/23 Rib pain- bilaterally up and down both side of rib cage when he coughs sharp pain Pain right upper chest/towards axilla when reaching for something rated 10, pain meds do not help. Right hip pain constant, rated 10, no decrease in pain with pain meds. Aching and sharp, + burning. Radiates into back, buttocks, groin. Frequent hiccups the last 3-4 days. No nausea. Fentanyl 12.5 mg patch started 7 days ago. Moving better, sleeping better, getting out of bed more but pain still uncontrolled needing breakthrough med. Oxycodone- using 10 mg 4-6 hours. Averaging 5 per day. Ativan 1 mg taking every night at bedtime. Aroung 10 PM Sometimes at nap during the day. Sometimes takes 3rd dose Intake, weights- appetite poor to fair, has been on dexamethasone 4 days. Has lost 33# over 3 months. Bowels- Using Senna prn, suppository prn. Had diarrhea 2 days ago, due to taking suppository 2 days in a row. Nausea- none Abd pain- none Haldol for hiccups not helping. Severe back pain started thought it was arthritis- then diagnosed with cancer. 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 Palliative radiation right hip/lumbar? 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 Social History Tobacco Use Smoking status: Former Packs/day: 1.00 Years: 15.00 Additional pack years: 0.00 Total pack years: 15.00 Types: Cigarettes Start date: 1970 Quit date: 1995 Years since quittin.1 Smokeless tobacco: Never Vaping Use Vaping Use: Never used Substance Use Topics Alcohol use: Yes Alcohol/week: 4.0 standard drinks of alcohol Types: 4 Shots of liquor per week Comment: occ Drug use: Never PAST MEDICAL HISTORY: PAST MEDICAL HISTORY Diagnosis Date Arthritis PAST SURGICAL HISTORY: PAST SURGICAL HISTORY Procedure Laterality Date KNEE LEFT OP SURGERY REVISE MEDIAN N/CARPAL TUNNEL SURG Right CURRENT MEDICATIONS: hyoscyamine sublingual (LEVSIN/SL) 0.125 mg Dissolve 0.125 mg under the tongue every 2 hours as needed for Secretions. Take 1 to 2 tablets every 2 hours as needed for moderate(4-6) to severe(7-10) secretions LORazepam (ATIVAN) 1 mg tablet Take 0.5 mg by mouth every 4 hours as needed for anxiety. Take a half tablet to 1 whole tablet every 4 hours as needed for moderate(4-6) to severe(7-10) anxiety haloperidol lactate (HALDOL) 2 mg/mL solution Take 2 mg by mouth every 4 hours as needed for Agitation or nausea/vomiting. Take 0.5 ml to 1 ml every 4 hours as needed for moderate(4-6) to severe(7-10) N/V or restlessness bisacodyl (DULCOLAX, BISACODYL,) 10 mg supp 10 mg by RECTAL route once daily as needed for constipation. Take 1 daily as needed for constipation if no BM using senna for 3 days or unable to take senna by mouth multivitamin tablet Take 1 tablet by mouth once daily. dexAMETHasone (DECADRON) 4 mg tablet Take 1 tablet by mouth two times a day with meals. fentaNYL (DURAGESIC) 12 mcg/hr pt72 Apply 1 Patch as directed every 72 hours for 6 days. Do not cut patch. fentaNYL (DURAGESIC) 12 mcg/hr pt72 Apply 1 Patch as directed every 72 hours for 9 days. Do not cut patch. oxyCODONE IR (ROXICODONE) 10 mg tab Take 10 mg by mouth every 2 hours as needed for pain. senna (SENOKOT) 8.6 mg tab Take 1 tablet by mouth once daily. gabapentin (NEURONTIN) 100 mg capsule Take 4 capsules by mouth three times a day. hydrOXYchloroQUINE (PLAQUENIL) 200 mg tablet Take 200 mg by mouth every 12 hours. ALLERGIES: ALLERGIES No Known Allergies FAMILY HISTORY: FAMILY HISTORY Problem Relation Age of Onset Arthritis Mother Pancreatic Cancer Father Alzheimer's Disease Father Heart disease Brother Lung Cancer Brother Diabetes Brother Arthritis Brother Kidney Disease Brother Diabetes Other Arthritis Other REVIEW OF SYSTEMS: Modified ESAS ([place] Symptom Assessment Scale): Information Provided By: Patient Pain: Severe Nausea: None Loss of Appetite: Moderate Constipation: Moderate Shortness of Breath: None Drowsiness: None Tiredness: Moderate Depression: Mild Anxiety: Moderate Objective PHYSICAL EXAMINATION: 95% pulse ox on room air, pulse 70 General Appearance: No apparent distress and Uncomfortable Skin: No jaundice, No rash, and No breakdown Eyes: No Icterus HENT: Oropharnyx clear with moist mucous membranes and No mucosal ulcerations Neck: Grossly normal Lungs: CTA except fine crackles to left base cleared after cough CV: Regular rate and rhythm Abdomen: Soft, Nontender, and hypoactive bowel sounds : Not examined Musculoskeletal: No gross deformity Lymphatics: 1 right supraclavicular lymph node and 1 left submandibular lymphadenopathy. Neuro: Alert and oriented to time place and person Psych: Well groomed, Affect congruent with mood, and Good eye contact, flat affect. DATA: Diagnostic tests reviewed for today's visit: Most recent labs and imaging results. Creatinine Date Value Ref Range Status 06/08/2023 0.78 0.50 - 1.40 mg/dL Final Comment: Patients receiving either N-Acetylcysteine (NAC) or Metamizole prior to venipuncture, may have falsely depressed results. Estimated Creatinine Clearance: 84.9 mL/min (based on SCr of 0.78 mg/dL). Diagnostic tests and information reviewed for today's visit: (All reviewed data/notes are most recent unless otherwise noted) Labs Imaging Notes Discussions Chemistry CT C/A/P Oncology CBC MRI LS MRI brain 06/09/23 MRI lumbar spine with con 1. The abnormal bone marrow signal intensity at L2 and L3 demonstrates contrast enhancement. The findings are highly suggestive of metastatic disease or multiple myeloma. Correlation with a whole body nuclear bone scan is recommended. If there is concern for multiple myeloma, correlation with a serum CBC and serum protein electrophoresis can be made. 2. Findings suggesting retroperitoneal lymphadenopathy as well as lesions within the liver suggesting metastatic disease to the lymph nodes as well as the liver. 06/10/23 CT chest 1. RIGHT upper lobe mass favoring primary pulmonary malignancy. 2. Multiple bilateral small pulmonary nodules highly suspicious for metastatic disease. 3. Metastatic RIGHT hilar and paratracheal lymphadenopathy. 4. Lytic osseous metastases involving the T8 vertebral body, bilateral fourth ribs, and LEFT ninth rib. 06/10/23 CT abd/pelvis Widespread abdominopelvic neoplasm, including bilobar hepatic masses, extensive abdominal lymphadenopathy, a right adrenal mass, multiple lytic bone metastases, and suspected carcinomatosis. This is presumably diffuse metastatic disease, although the primary neoplasm is not clearly identified. As indicated, the dominant left lobe liver metastasis would be amenable for percutaneous biopsy. MRI brain 06/20/23 Numerous supratentorial and infratentorial brain metastasis as detailed above. There is only local mass effect adjacent to some of the lesions demonstrating some vasogenic edema. There is also probable minimal blood products and 2 of the metastatic lesions. No midline shift. No hydrocephalus. Opioid Management: Yes Indication for Opioid Prescribing: Cancer related pain Review of previous pain treatment and response to treatment completed?: Yes How much does pain impede patient s ability to engage in work or other purposeful activities, interfere with your activities of daily living, physical activity, or quality of your family life and social activities? Significantly Objective goals of treatment:Improved comfort and function based on an ongoing functional assessment Rationale for medication choice and dosage: Based on a review of patient's previous therapies, diagnosis, goals of therapy and an assessment of the risks and benefits of using opioid therapy Expected duration of treatment: At least three months, based on an ongoing assessment at least every three months ORT-OUD Score: 0 A score of 3 or higher may indicate a higher risk for future development of aberrant drug related behavior or opioid use disorder. 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 specialist Chronic Opioid Management Agreement and Informed Consent: Will complete at next visit Minnie Kumar APRN.EMPLOYEE RELATIONS CONSULTANT Assessment & Plan Right lung mass with mets to liver and bone, lymph nodes - Primary source thought to be lung, biopsy pending - CT abd/pelvis 06/12/23 showed widespread abdominopelvic neoplasm including bilobar hepatic masses, extensive abdominal lymphadenopathy, a right adrenal mass, multiple lytic bone metastases, and suspected carcinomatosis - CT chest large right upper lobe mass favors primary pulmonary malignancy and show right hilar and paratracheal LAD, and lytic lesion T8, bilateral 4th ribs and left 9th rib. - MRI with bony lesions to L2 and L3 - Lytic lesion right femur - Retroperitoneal adenopathy per MRI - Could not tolerate medrol dose pack (dysarthria and confusion) - 06/17/23 oncology ordered PET scan, MRI brain and biopsy lung tavo, and will consider palliative radiation to right hip/LS - Liver bx scheduled 06/28/23 Cancer related pain -Increase fentanyl patch 25 mcg/ hour q 72 hours - Continue oxycontin IR 10 mg q 4 hours PRN breakthrough pain - Continue gabapentin 400 mg TID Hiccups - D/C Haldol -Start baclofen 10 mg TID prn hiccups- wait to start until 2 days after new higher dose fentanyl patch applied. Anxiety -Decrease ativan to 0.5 mg BID prn- use sparingly during titration to higher fentanyl patch dose. Weight loss/ decreased oral intake/ dyspepsia - 33 # weight loss from Mar 2023- May 2023 - Abdominal pain with eating at times, denies nausea - Add pantoprazole 20 mg daily Constipation, opioid induced - Pt was using Senna prn but not utilizing soon enough, then would take several days in a row along with dulcolax suppositories- caused diarrhea. - Wait one more day and then start senna every other day on schedule, goal BM q 2-3 days. If too much may go down to 3 times per week. Rheumatoid arthritis - On plaquenil (in past has been on methotrexate, humira and other biologics) Palliative Care Encounter/Serious Illness Conversation: -Reviewed the role and structure of Palliative Medicine for patients with advanced life-limiting illnesses as a means of providing optimal symptom management as well as assisting with complex decision making. - Discussed Palliative Medicine at Home program does not replace the role of the PCP. - Was previously on hospice for a few days, but revoked deciding he wanted to have diagnostics and treatment. - Pt was in a lot of pain today and had to leave for appointment with radiology oncologist, did not have a chance to talk about advanced directives or code status, will discuss on next visit. Surrogate Decision Maker: Rach Existence of Advance Directives: Unknown Next Visit: 4 Weeks in-person Palliative Medicine Nurse to do telephonic follow-up: Yes Fly Maker Services: None at this time Referral to Fine Arts Chair: No, not at this time Recommendations will be communicated back to the consulting service by way of shared electronic medical record. Minnie Kumar, MATHEUS.EMPLOYEE RELATIONS CONSULTANT June 22, 2023 6:57 AM This note may have been partially generated using the Fiz voice recognition system. While every effort was made to correct voice recognition errors, kindly be aware that some errors may occasionally occur. documented in this encounter [facility] 06-22-2023 History of Present illness Narrative GALINDO FITZGERALD [id number] 06/22/2023 [facility] Department of Radiation Oncology Treatment Planning Note For reasons stated in the consult note, Galindo Fitzgerald is a candidate for radiation therapy. Based on review and interpretation of the relevant diagnostic studies together with the exam findings, Galindo Fitzgerald was simulated on 06/22/2023 at which time the target volume and/or requisite rodríguez were delineated, as indicated in the simulation note, to be treated according to the prescription. After reviewing the treatment plan with dosimetry, the plan was approved to deliver the prescribed course of radiation to the target area to allow for the best isodose distribution, treating to the 98% isodose line with 6MV and 2 rodríguez. Custom MLC asym jaws were the treatment device(s) used to shape/modify the beams. A completed summary of this plan dated 06/23/2023 incorporated herein by reference includes dose, beam arrangements, energy, blocking, isodose distribution, and/or ports and DVH. Electronically Signed Janneth Pierre M.D. 48:06 AM documented in this encounter [facility] 06-20-2023 Note HNO ID: [id number] Author: KENNEDI MCDONALD RT(R) Service: Radiology Author Type: Technologist Type: Progress Notes Filed: 06/20/2023 13:34 Note Text: Radiology Service Progress Note DATE OF SERVICE: June 20, 2023 TIME: 1:22 PM PATIENT IDENTITY VERIFICATION COMPLETED USING TWO (2) STANDARD IDENTIFIERS: Name and Date of confirmed by patient verbally and Name and Date of confirmed by identification band. FALL SCREENING: Has the patient had 2 falls in the last year or 1 fall with injury or currently using an Ambulatory Assistive Device (Walker, Cane, Wheelchair, Crutches, etc.)? No PATIENT GENDER DATA: Male PATIENT RELEVANT IMPLANT DATA REVIEWED: Yes PATIENT PRESENTS WITH AN IMPLANTABLE OR ATTACHED TELEPHONE ADVICE NURSE: Yes Other Pain patch ALLERGIES: Reviewed and unchanged CONTRAST ALLERGY: NO. EXAM: MRI - CONTRAST TYPE: GROUP II PERIPHERAL IV DATA: Ambulatory: A peripheral IV was started in the Right antecubital site with a Angio cath: 22 gauge. RADIOLOGY DEPARTMENT: MR; Exam(s) Completed: Head: Routine Brain SIGNATURE: RT Juan(R) PATIENT NAME: Galindo Fitzgerald DATE: June 20, 2023 TIME: 1:22 PM [facility] 06-17-2023 Note HNO ID: [id number] Author: RICHIE VIVEROS RT(R) Service: Radiology Author Type: Technologist Type: Progress Notes Filed: 06/17/2023 16:17 Note Text: Radiology Service Progress Note PATIENT NAME: Galindo Fitzgerald DATE OF SERVICE: June 17, 2023 TIME: 4:06 PM PATIENT IDENTITY VERIFICATION COMPLETED USING TWO (2) IDENTIFIERS: Name and Date of confirmed by patient verbally. FALL SCREENING: Has the patient had 2 falls in the last year or 1 fall with injury or currently using an Ambulatory Assistive Device (Walker, Cane, Wheelchair, Crutches, etc.)? No PATIENT GENDER DATA: Male PATIENT RELEVANT IMPLANT DATA REVIEWED: Not Applicable PATIENT PRESENTS WITH AN IMPLANTABLE OR ATTACHED TELEPHONE ADVICE NURSE: No RADIOLOGY DEPARTMENT: General X-ray: Exam(s) Completed: Pelvis X-Ray: Pelvis with Hip Right PERIPHERAL IV DATA: Not applicable SIGNED BY: RT Macie(R) June 17, 2023 4:06 PM [facility] 06-17-2023 Note HNO ID: [id number] Author: TRENTON JAQUEZ, DO Service: ? Author Type: Physician Type: Progress Notes Filed: 06/19/2023 13:16 Note Text: Self referred for metastatic cancer. The impression and plan will be communicated by way of the shared electronic record or faxed under separate cover letter. HPI: The patient is a 73-year-old male with past medical history significant for rheumatoid arthritis (diagnosed about 15 years ago), low back pain, former smoker (quit 1995; 15 pack years). RA--had been on MTX, Humira and other biologics in the past. Currently on Plaquenil. Had an MRI of the lumbar spine which showed marrow replacing lesions in L2 and L3 suspicious for metastatic disease. On a callback MRI done with contrast similar osseous findings and retroperitoneal adenopathy observed as well. Follow-up CT abdomen pelvis 06/12/2023 identified Widespread abdominopelvic neoplasm, including bilobar hepatic masses, extensive abdominal lymphadenopathy, a right adrenal mass, multiple lytic bone metastases, and suspected carcinomatosis. This is presumably diffuse metastatic disease, although the primary neoplasm is not clearly identified. As indicated, the dominant left lobe liver metastasis would be amenable for percutaneous biopsy. CT chest IMPRESSION: 1. RIGHT upper lobe mass favoring primary pulmonary malignancy. 2. Multiple bilateral small pulmonary nodules highly suspicious for metastatic disease. 3. Metastatic RIGHT hilar and paratracheal lymphadenopathy. 4. Lytic osseous metastases involving the T8 vertebral body, bilateral fourth ribs, and LEFT ninth rib. First evening after taking steroid (Medrol dose pack) around 05/27--had dysarthria and confusion. Improved through the night. Medrol stopped. Hasn't happened again. B/L rib pain. Right sided sciatica pain. Right groin. Fentanyl patch and oxycodone helping--can sleep better. Previously taking a lot of Aleve. Appetite decreased. ~35 lb weight loss since April. No nausea. Abdominal pain depending on what he eats. No BM in about 3-4 days. No dyspnea. No cough. PAST MEDICAL HISTORY Diagnosis Date Arthritis PAST SURGICAL HISTORY Procedure Laterality Date KNEE LEFT OP SURGERY REVISE MEDIAN N/CARPAL TUNNEL SURG Right ALLERGIES No Known Allergies Current Outpatient Medications Medication Sig hyoscyamine sublingual (LEVSIN/SL) 0.125 mg Dissolve 0.125 mg under the tongue every 2 hours as needed for Secretions. Take 1 to 2 tablets every 2 hours as needed for moderate(4-6) to severe(7-10) secretions LORazepam (ATIVAN) 1 mg tablet Take 0.5 mg by mouth every 4 hours as needed for anxiety. Take a half tablet to 1 whole tablet every 4 hours as needed for moderate(4-6) to severe(7-10) anxiety haloperidol lactate (HALDOL) 2 mg/mL solution Take 2 mg by mouth every 4 hours as needed for Agitation or nausea/vomiting. Take 0.5 ml to 1 ml every 4 hours as needed for moderate(4-6) to severe(7-10) N/V or restlessness bisacodyl (DULCOLAX, BISACODYL,) 10 mg supp 10 mg by RECTAL route once daily as needed for constipation. Take 1 daily as needed for constipation if no BM using senna for 3 days or unable to take senna by mouth multivitamin tablet Take 1 tablet by mouth once daily. fentaNYL (DURAGESIC) 12 mcg/hr pt72 Apply 1 Patch as directed every 72 hours for 9 days. Do not cut patch. oxyCODONE IR (ROXICODONE) 10 mg tab Take 10 mg by mouth every 2 hours as needed for pain. HYDROcodone-acetaminophen (NORCO) 5-325 mg per tablet Take 1 tablet by mouth every 6 hours as needed for pain for up to 7 days. senna (SENOKOT) 8.6 mg tab Take 1 tablet by mouth once daily. gabapentin (NEURONTIN) 100 mg capsule Take 4 capsules by mouth three times a day. hydrOXYchloroQUINE (PLAQUENIL) 200 mg tablet Take 200 mg by mouth every 12 hours. iv contrast (will be provided with radiology test) MRI LSP Inject, intravenously, once for 1 dose. No IV access, insert saline lock prior to the beginning of sedation, infusion, injection of imaging exam. Discontinue saline lock post exam. If Pt. has a central line or IVAD, may access for administration according to line specific nursing protocol. Once exam is complete flush line and de-access according to line specific nursing protocol in the MR contrast administration guidelines link. (Patient not taking: Reported on 06/08/2023) No current facility-administered medications for this visit. 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 Family Histo (more content not included)... [facility] 06-17-2023 History of Present illness Narrative Self referred for metastatic cancer. The impression and plan will be communicated by way of the shared electronic record or faxed under separate cover letter. HPI: The patient is a 73-year-old male with past medical history significant for rheumatoid arthritis (diagnosed about 15 years ago), low back pain, former smoker (quit 1995; 15 pack years). RA--had been on MTX, Humira and other biologics in the past. Currently on Plaquenil. Had an MRI of the lumbar spine which showed marrow replacing lesions in L2 and L3 suspicious for metastatic disease. On a callback MRI done with contrast similar osseous findings and retroperitoneal adenopathy observed as well. Follow-up CT abdomen pelvis 06/12/2023 identified Widespread abdominopelvic neoplasm, including bilobar hepatic masses, extensive abdominal lymphadenopathy, a right adrenal mass, multiple lytic bone metastases, and suspected carcinomatosis. This is presumably diffuse metastatic disease, although the primary neoplasm is not clearly identified. As indicated, the dominant left lobe liver metastasis would be amenable for percutaneous biopsy. CT chest IMPRESSION: 1. RIGHT upper lobe mass favoring primary pulmonary malignancy. 2. Multiple bilateral small pulmonary nodules highly suspicious for metastatic disease. 3. Metastatic RIGHT hilar and paratracheal lymphadenopathy. 4. Lytic osseous metastases involving the T8 vertebral body, bilateral fourth ribs, and LEFT ninth rib. First evening after taking steroid (Medrol dose pack) around 05/27--had dysarthria and confusion. Improved through the night. Medrol stopped. Hasn't happened again. B/L rib pain. Right sided sciatica pain. Right groin. Fentanyl patch and oxycodone helping--can sleep better. Previously taking a lot of Aleve. Appetite decreased. ~35 lb weight loss since April. No nausea. Abdominal pain depending on what he eats. No BM in about 3-4 days. No dyspnea. No cough. PAST MEDICAL HISTORY Diagnosis Date Arthritis PAST SURGICAL HISTORY Procedure Laterality Date KNEE LEFT OP SURGERY REVISE MEDIAN N/CARPAL TUNNEL SURG Right ALLERGIES No Known Allergies Current Outpatient Medications Medication Sig hyoscyamine sublingual (LEVSIN/SL) 0.125 mg Dissolve 0.125 mg under the tongue every 2 hours as needed for Secretions. Take 1 to 2 tablets every 2 hours as needed for moderate(4-6) to severe(7-10) secretions LORazepam (ATIVAN) 1 mg tablet Take 0.5 mg by mouth every 4 hours as needed for anxiety. Take a half tablet to 1 whole tablet every 4 hours as needed for moderate(4-6) to severe(7-10) anxiety haloperidol lactate (HALDOL) 2 mg/mL solution Take 2 mg by mouth every 4 hours as needed for Agitation or nausea/vomiting. Take 0.5 ml to 1 ml every 4 hours as needed for moderate(4-6) to severe(7-10) N/V or restlessness bisacodyl (DULCOLAX, BISACODYL,) 10 mg supp 10 mg by RECTAL route once daily as needed for constipation. Take 1 daily as needed for constipation if no BM using senna for 3 days or unable to take senna by mouth multivitamin tablet Take 1 tablet by mouth once daily. fentaNYL (DURAGESIC) 12 mcg/hr pt72 Apply 1 Patch as directed every 72 hours for 9 days. Do not cut patch. oxyCODONE IR (ROXICODONE) 10 mg tab Take 10 mg by mouth every 2 hours as needed for pain. HYDROcodone-acetaminophen (NORCO) 5-325 mg per tablet Take 1 tablet by mouth every 6 hours as needed for pain for up to 7 days. senna (SENOKOT) 8.6 mg tab Take 1 tablet by mouth once daily. gabapentin (NEURONTIN) 100 mg capsule Take 4 capsules by mouth three times a day. hydrOXYchloroQUINE (PLAQUENIL) 200 mg tablet Take 200 mg by mouth every 12 hours. iv contrast (will be provided with radiology test) MRI LSP Inject, intravenously, once for 1 dose. No IV access, insert saline lock prior to the beginning of sedation, infusion, injection of imaging exam. Discontinue saline lock post exam. If Pt. has a central line or IVAD, may access for administration according to line specific nursing protocol. Once exam is complete flush line and de-access according to line specific nursing protocol in the MR contrast administration guidelines link. (Patient not taking: Reported on 06/08/2023) No current facility-administered medications for this visit. 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 Family History Problem Relation Age of Onset Arthritis Mother Pancreatic Cancer Father Alzheimer's Disease Father Heart disease Brother Lung Cancer Brother Diabetes Brother Arthritis Brother Kidney Disease Brother Diabetes Other Arthritis Other Father--Pancreas diagnosed in his 60s. Surgery. Lived into his 70s. Brother--Lung cancer. Long-term smoker. ROS: Constitutional: No fever. No drenching night sweats. Neuro: No recent ANGEL. No symptoms of sensory neuropathy. HEENT: No recent change in voice, vision or hearing. Resp: No cough, wheeze or emoptysis. No shortness of breath at rest. CVS: No exertional chest pain, PND or orthopnea. No extremity swelling/edema. GI: No dysphagia or odynophagia. No reflux, n/v or abdominal pain, bloating or distension. No black or bloody stools. : No dysuria or gross hematuria Endo: No hot flashes. No polyuria or polydipsia. No heat or cold intolerance. Musculoskeletal: See above. Derm: No current rash. No history of jaundice. No diffuse pruritis. Heme: No unusual bleeding and unexplained bruising. Psych: Normal mood. PHYSICAL EXAM: Vitals: Blood pressure 114/69, pulse 81, temperature 37.1 C (98.7 F), height 173.5 cm (5' 8.31 ), weight 71.4 kg (157 lb 8 oz), SpO2 97%. Thin-appearing and in no acute distress. EYES: Sclerae are anicteric bilaterally. ENT: Oral mucosa is unremarkable. There is no sign of thrush or mucositis. LYMPHATIC: There is no palpable cervical, supraclavicular, axillary or inguinal adenopathy. RESPIRATORY: Inspiratory breath sounds are of normal intensity in all rodríguez. No rales, wheezes or rhonchi. CARDIOVASCULAR: Rhythm is regular. ABDOMEN: The abdomen is nondistended. Tender left hepatomegaly. Extremities: No swelling or edema. SKIN: No jaundice or rash. NEUROLOGIC: curriculum coordinator II-XII are grossly intact. No focal motor weakness. Right patellar and Achilles reflex normal. ASSESSMENT/PLAN: (R91.8) Mass of lower lobe of right lung (primary encounter diagnosis (M89.9) Lytic bone lesion of right femur (K76.9) Liver lesion, left lobe (C79.9) Metastatic malignant neoplasm, unspecified site (HCC) Assessment: -The patient is a 73-year-old male with a past medical history significant for rheumatoid arthritis and a [id number] history of smoking having quit in 1995. Recently evaluated for pain and weight loss found to have a right lung mass as well as multiple skeletal lesions consistent with metastases and liver lesions consistent with metastases. -Reviewed CT images with patient and family. -Discussed workup with patient and family. -Pain under reasonable control but may benefit from palliative radiation to right hip/lumbar spine. Plan: -X-ray hip today. -Biopsy metastasis in left lobe liver TAVO. -PET scan. -MRI brain. -Palliative care. -Start dexamethasone 4 mg BID for pain and appetite. -Refilled Fentanyl patch 12 mcg/hr. -Refilled oxycodone 10 mg tablets. I spent a total of 60 minutes on the date of the service which included preparing to see the patient, [id number] patient care, completing clinical documentation, obtaining and/or reviewing separately obtained history, performing a medically appropriate examination, counseling and educating the patient/family/caregiver, ordering medications, tests, or procedures, independently interpreting results (not separately reported), and communicating results to the patient/family/caregiver. Trenton Jaquez DO documented in this encounter [facility] 06-17-2023 Miscellaneous Notes Palliative Medicine referral received on 06/13/2023. Epic reviewed and patient was admitted to Hospice on 06/15/2023. Pall Med referral cancelled. Dorota Rosario RN June 17, 2023 8:05 AM documented in this encounter [facility] 06-16-2023 Miscellaneous Notes After speaking with [facility]. If patient still wants to see oncology they can but a ABN would need to be signed so they understand they may have to pay for the visit. If the patien revocates hospice then his pain meds from hospice would need to be destroyed per protocol. So after extensive education to the patient and his they decided to sign the ABN and stay on hospice. They will go to the oncologist for the consult and then decide what they will do from there. ABN signed by patient documented in this encounter [facility] 06-16-2023 Miscellaneous Notes Met with and patient. They stated that the patient has a appointment with an oncologist tomorrow and he will be going. We discussed hospice and seeking aggresive treatments and let then know that he would have to revocate to be able to see the oncologist. Call placed to management to see how controlled substances would be handled since patient was placed on oxycodone and fentanyl by the hospice physician. Waiting for call back. documented in this encounter [facility] 06-10-2023 Note HNO ID: [id number] Author: KARI VORA RT(R) Service: Radiology Author Type: Technologist Type: Progress Notes Filed: 06/10/2023 09:54 Note Text: Summary: ct Radiology Service Progress Note DATE OF SERVICE: June 10, 2023 TIME: 9:53 AM PATIENT IDENTITY VERIFICATION COMPLETED USING TWO (2) STANDARD IDENTIFIERS: Name and Date of confirmed by patient verbally. FALL SCREENING: Has the patient had 2 falls in the last year or 1 fall with injury or currently using an Ambulatory Assistive Device (Walker, Cane, Wheelchair, Crutches, etc.)? No PATIENT GENDER DATA: Male PATIENT RELEVANT IMPLANT DATA REVIEWED: Not Applicable ALLERGIES: Reviewed and unchanged CONTRAST ALLERGY: NO. EXAM: CT -CONTRAST INDUCED NEPHROPATHY RISK FACTORS: Patient age > 60 years CREATININE: Creatinine Date Value Ref Range Status 06/08/2023 0.78 0.50 - 1.40 mg/dL Final Comment: Patients receiving either N-Acetylcysteine (NAC) or Metamizole prior to venipuncture, may have falsely depressed results. 01/18/2020 0.79 0.5 - 1.4 MG/DL Final Comment: NOTE NEW NORMAL RANGE DUE TO REAGENT CHANGE Patients receiving either N-Acetylcysteine (NAC) or Metamizole prior to venipuncture, may have falsely depressed results. 04/04/2019 0.899 0.670 - 1.170 MG/DL Final Comment: Patients receiving either N-Acetylcysteine (NAC) or Metamizole prior to venipuncture, may have falsely depressed results. Estimated Glomerular Filtration Rate Date Value Ref Range Status 06/08/2023 95 >=60 mL/min/1.73m? Final Comment: Estimated Glomerular Filtration Rate (eGFR) is calculated using the 2020 CKD-EPI creatinine equation. This equation utilizes serum creatinine, sex, and age as parameters. The creatinine assay has traceable calibration to isotope dilution-mass spectrometry. Refer to KDIGO guidelines for clinical interpretation. In patients with unstable renal function, e.g. those with acute kidney injury, the eGFR may not accurately reflect actual GFR. eGFR- Date Value Ref Range Status 01/18/2020 Greater than 60 Final P.O.C.T. RESULTS: N/A June 10, 2023 TREATMENT: Oral Hydration: ml water. PERIPHERAL IV DATA: Ambulatory: A peripheral IV was started in the Right antecubital site with a Angio cath: 20 gauge. RADIOLOGY DEPARTMENT: CT; Exam(s) Completed: Chest Abdomen Pelvis SIGNATURE: RT Abby(R) PATIENT NAME: Galindo Fitzgerald DATE: June 10, 2023 TIME: 9:[address] [facility] 06-09-2023 Note HNO ID: [id number] Author: MARTINA STANFORD RT(R) Service: ? Author Type: Technologist Type: Progress Notes Filed: 06/09/2023 08:49 Note Text: Radiology Service Progress Note DATE OF SERVICE: June 09, 2023 TIME: 8:49 AM PATIENT IDENTITY VERIFICATION COMPLETED USING TWO (2) STANDARD IDENTIFIERS: Name and Date of confirmed by patient verbally. FALL SCREENING: Has the patient had 2 falls in the last year or 1 fall with injury or currently using an Ambulatory Assistive Device (Walker, Cane, Wheelchair, Crutches, etc.)? No PATIENT GENDER DATA: Male PATIENT RELEVANT IMPLANT DATA REVIEWED: Not Applicable ALLERGIES: Reviewed and unchanged CONTRAST ALLERGY: NO. EXAM: MRI - CONTRAST TYPE: GROUP II PERIPHERAL IV DATA: Ambulatory: A peripheral IV was started in the Right antecubital site with a Butterfly: 25 gauge. RADIOLOGY DEPARTMENT: MR; Exam(s) Completed: Spine: Lumbar spine SIGNATURE: RT Thiago(R) PATIENT NAME: Galindo Fitzgerald DATE: June 09, 2023 TIME: 8:49 AM [facility] 06-08-2023 Note HNO ID: [id number] Author: RONA PETER APRN.EMPLOYEE RELATIONS CONSULTANT Service: ? Author Type: Nurse Practitioner Type: Progress Notes Filed: 06/08/2023 12:40 Note Text: Chief Reason For Appointment Patient presents with: Establish Care Accompanied By spouse History/Concerns: He is here to establish. He was found to have some abnormal findings that are concerning for malignancy. He was seen by neuosurgery and imaging has been ordered and is pending. History of Rheumatoid arthritis on plaquanil. His back pain is his main concern, and this is being addressed by Neurosurgery. He was requested to seek PCP and to have a complete work up for malignancy This was discussed with him by neurosurgery, but he told me that he thinks the problem with his lung was an old problem and on the left. He has multiple pending scans, spine, lung abdomen. They are scheduled this week. Spouse seems to understand the concerns about these issues Pos family history: Brother, lung cancer and was a smoker; father, pancreatic cancer. History of smoking, 1 PPD, quite at age 45 Never had colonoscopy Had covid vaccine in past, and flu in past. Didn't get them this year. 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 Lived in [place], then [place], and now here in [place] prefers if he has cancer that we send him to [facility] for care. They have a family member familiar with [facility] Chart review completed. No recent labs The patient's concerning finding are: CXR: 4.7 cm opacity, RLL Lung 2. Lumbar: Advanced multilevel DDD 3. MRI spine: L2 and L3, suspicious for osseous metastasis 4. MRI spine: Ill defined hyperintense lesions in liver, multiple retroperitoneal lymphadenopathy, RECOMMEND: dedicated Liver MRI, Pending scheduled testing: MRI Lumbar spine with IVCON, and Chest CT and Abd/Pelv, CT ROS: Review of Systems Constitutional: Positive for appetite change and unexpected weight change. Negative for fever. Weight loss, 30 # in 3 months HENT: Negative for congestion, ear pain and trouble swallowing. Eyes: Negative for visual disturbance. Respiratory: Negative for chest tightness, shortness of breath and wheezing. Cardiovascular: Negative for chest pain, palpitations and leg swelling. Gastrointestinal: Negative for abdominal pain, blood in stool, diarrhea, nausea, rectal pain and vomiting. Genitourinary: Negative for difficulty urinating, dysuria and flank pain. Musculoskeletal: Positive for back pain. Neurological: Positive for headaches. Pos weight loss. 30# in 3 months. Pos for spine pain that is now improving on adjusted dose of medication per neurosurgery. Pos for low appetite, Bowels every few days. Neg urinary problems, n/v/d, fevers. Specialists/Other Healthcare Providers: Patient Care Team: Edna Pulliam DO as PCP - General (Internal Medicine) Evens Love MD (Neurosurgery) Yisel Lim, John Paul, retired, getting someone else in that office , retired, saw him 15 years ago. Active Problems ACTIVE PROBLEM LIST Rheumatoid Arthritis (Hcc) - 06/08/2023 Abnormal Finding On Chest Xray - 06/08/2023 Chronic Midline Low Back Pain - 06/08/2023 Abnormal Findings On Diagnostic Imaging of Spine - 06/08/2023 Weight Summary: Body mass index is 23.95 kg/m?. Last Wt 06/08/23 : 70.4 kg (155 lb 3.2 oz) 06/07/23 : 71.7 kg (158 lb) 05/26/23 : 71.8 kg (158 lb 4.6 oz) Physical Exam: BP 119/75 (BP Site: Left Arm, BP Position: Sitting, BP Cuff Size: Regular Adult) Pulse 70 Temp 36.5 ?C (97.7 ?F) (Temporal) Resp 16 Ht 171.5 cm (5' 7.5 ) Wt 70.4 kg (155 lb 3.2 oz) SpO2 97% BMI 23.95 kg/m? Physical Exam Constitutional: General: He is not in acute distress. Appearance: Normal appearance. He is not ill-appearing. HENT: Head: Normocephalic and atraumatic. Right Ear: Tympanic membrane normal. Left Ear: Tympanic membrane normal. Mouth/Throat: Mouth: Mucous membranes are moist. Pharynx: Oropharynx is clear. Eyes: Conjunctiva/sclera: Conjunctivae normal. Cardiovascular: Rate and Rhythm: Normal rate and regular rhythm. Heart sounds: Normal heart sounds. No murmur heard. No gallop. Pulmonary: Effort: Pulmonary effort is normal. Comments: Diminished LLL, otherwise clear Abdominal: General: Abdomen is flat. There is no distension. Palpations: Abdomen is soft. There is no mass. Tenderness: There is no abdominal tenderness. There is no guarding. Musculoskeletal: Cervical back: Neck supple. Lymphadenopathy: Cervical: No cervical adenopathy. Skin: General: Skin is warm and dry. Coloration: Skin is not jaundiced. Neurological: General: No focal deficit present. Mental Status: He is alert and oriented to person, place, and time. Gait: Gait normal. Psychiatric: Mood and Affect: Mood normal. Behavior: Behavior normal. Thought Content: Thought content norm (more content not included)... [facility] 06-07-2023 Note HNO ID: [id number] Author: EVENS LOVE MD Service: ? Author Type: Physician Type: Progress Notes Filed: 06/07/2023 14:54 Note Text: NEUROSURGERY FOLLOW UP OFFICE NOTE Evens Love MD [facility] Date of visit: June 07, 2023 Patient Name: Mr.Stephen Danna Fitzgerald Date of : 1950 Current Age: [age] year old Sex: male MRN/E# [id number] Last Office Visit: 05/27/2023 Chief Complaint: Patient presents with: Established Patient Past Medical/Surgical History: Galindo Fitzgerald is a 73 year old, ambidextrous male who is self referred for neurosurgical evaluation. The patient has no past medical history on file. HPI: Mr. Fitzgerald presented to the office as a new patient on 05/26/2023 with complaints of a few month history of middle and right sided low back pain that radiated into the right gluteal aspect, right hip, right lateral thigh and right groin. He denied an inciting event. This happened to him in the past, and he did note he found good relief from physical therapy. He had been having trouble sleeping from the pain, he had lost 20-30 pounds in this time because of decreased appetite. He was spending most of his time in bed. Imaging showed diffuse spondylosis and degenerative changes, so an MRI order was placed for his lumbar spine to evaluate for any nerve compression. He was ordered Medrol, which made him confused and gave him severe stomach pain. Gabapentin was then prescribed following that for pain relief. He was referred to physical therapy for conditioning, and he was to follow up in office to discuss image results and progress, prompting his visit today. The patient presents to the office today still endorsing the same symptoms as the last time. He still notes mid to right sided low back pain that radiates into the right glute, hip, right lateral thigh and into the groin. He is still taking Gabapentin but notes minimal to no relief at all. He is set to start PT tomorrow but does not think he can tolerate it. He noted his stomach pain to be better. He is here for evaluation and plan of care. Symptoms: heat, aleve, tylenol, massage PREVIOUS CONSERVATIVE TREATMENTS: Physical therapy - nothing recent Aleve Heat Massage Tylenol PREVIOUS SURGERY: None Surgical Risk Factors: Smoking status: denies Anticoagulants/antiplatelets: denies Diabetic: denies BMI: 23.38 PAIN EVALUATION 06/07/2023 1132 Pain Level: 10 Pain Location: Back-Lower Description: Sharp;Shooting;Aching;Burning;Rad iating Duration Units: Unknown Frequency: Continuous No past medical history on file. No past surgical history on file. No family history on file. ALLERGIES No Known Allergies Current Outpatient Medications Medication Sig Dispense Refill gabapentin (NEURONTIN) 100 mg capsule Take 1 capsule by mouth three times a day for 30 days. 90 capsule 0 hydrOXYchloroQUINE (PLAQUENIL) 200 mg tablet Take 1 tablet by mouth every 12 hours. No current facility-administered medications for this visit. REVIEW OF SYSTEMS Review of Systems Constitutional: Negative for diaphoresis, fatigue and fever. HENT: Negative for ear pain, hearing loss and tinnitus. Eyes: Negative for photophobia, pain and visual disturbance. Respiratory: Negative for chest tightness and shortness of breath. Cardiovascular: Negative for chest pain. Gastrointestinal: Negative for constipation, diarrhea, nausea and vomiting. Endocrine: Negative for polydipsia, polyphagia and polyuria. Genitourinary: Negative for difficulty urinating, frequency and urgency. Musculoskeletal: Positive for back pain and gait problem. Negative for neck pain. Neurological: Positive for weakness (subjective) and numbness. Negative for tremors and headaches. Psychiatric/Behavioral: Negative for agitation and confusion. The patient is not nervous/anxious. OBJECTIVE: BP 145/90 Pulse 76 Resp 16 Ht 5' 9 (1.75m) Wt 158 lb (71.7kg) SpO2 98% BMI 23.32 kg/(m2). PHYSICAL EXAM: Mental State : Alert, memory function unremarkable. Attention span and concentration normal for patient's age. Speech normal, no receptive or expressive speech deficit. Recent and remote memory normal. Orientation : Oriented to person, place and time. Cranial Nerves : Grossly intact. Sensory: Normal Sensation in upper and lower extremities and trunk to touch and noxious stimuli. Motor: Normal muscle tone and bulk. No tremor or uncontrollable movements. No spasticity or tremor. Gait and Station: Casual gait is normal including stance, stride, and arm swing. STRENGTH: Upper Extremity Strength Exam Right Left Elbow Flexion 5/5 5/5 Elbow Extension 5/5 5/5 Finger Flexion 5/5 5/5 Finger Extension 5/5 5/5 Finger Abduction 5/5 5/5 Lower Extremity Strength Exam Right Left Hip Flexion 3/5 4+/5 Knee Flexion 4/5 4+/5 Knee Extension 4/5 4+/5 Dorsiflexion 4/5 4+/5 Plantarflexion 4/5 4+/5 Re (more content not included)... [facility] 06-03-2023 Note HNO ID: [id number] Author: MAGUI WIGGINS RT(R) Service: ? Author Type: Technologist Type: Progress Notes Filed: 06/03/2023 15:07 Note Text: Radiology Service Progress Note PATIENT NAME: Galindo Fitzgerald DATE OF SERVICE: June 03, 2023 TIME: 3:07 PM PATIENT IDENTITY VERIFICATION COMPLETED USING TWO (2) IDENTIFIERS: Name and Date of confirmed by patient verbally. FALL SCREENING: Has the patient had 2 falls in the last year or 1 fall with injury or currently using an Ambulatory Assistive Device (Walker, Cane, Wheelchair, Crutches, etc.)? No PATIENT GENDER DATA: Male PATIENT RELEVANT IMPLANT DATA REVIEWED: Yes RADIOLOGY DEPARTMENT: MR; Exam(s) Completed: Spine: Lumbar spine PERIPHERAL IV DATA: Not applicable SIGNED BY: RT Hernan(R) June 03, 2023 3:07 PM [facility] 05-26-2023 Note HNO ID: [id number] Author: EVENS LOVE MD Service: ? Author Type: Physician Type: Progress Notes Filed: 05/26/2023 10:55 Note Text: NEUROSURGERY CONSULT NOTE Evens Love MD [facility] Date of visit: May 26, 2023 Patient Name: Mr.Stephen Danna Fitzgerald Date of : 1950 Current Age: [age] year old Sex: male MRN/E# [id number] Last Office Visit: Visit date not found Chief Complaint: No chief complaint on file. Past Medical/Surgical History: Galindo Fitzgerald is a 73 year old, ambidextrous male who is self referred for neurosurgical evaluation. The patient has no past medical history on file. Smoking: denies. Alcohol Use: denies HISTORY OF PRESENT ILLNESS : The patient presents to the office today as a new patient for neurosurgical evaluation of his low back. Today he states he has had a couple month history of midline and right sided low back pain that radiates into the right glute, right hip, right lateral thigh and right groin. He denies an inciting event. This has happened to him before and he found significant relief with physical therapy. His is accompanying him and states that he has been having trouble sleeping at night due to the pain. He has also lost 20-30 pounds in the last couple months because of decreased appetite from the pain. The pain is constant, but fluctuates in severity. His said he spends most of his time in bed. His would like him to see pain management. He is here for image review, evaluation and plan of care. Symptoms: heat, aleve, tylenol, massage PREVIOUS CONSERVATIVE TREATMENTS: Physical therapy - nothing recent Aleve Heat Massage Tylenol PREVIOUS SURGERY: None Surgical Risk Factors: Smoking status: denies Anticoagulants/antiplatelets: denies Diabetic: denies BMI: 23.38 PAIN EVALUATION No data found in the last 1 encounters. No past medical history on file. No past surgical history on file. No family history on file. ALLERGIES No Known Allergies Current Outpatient Medications Medication Sig Dispense Refill hydrOXYchloroQUINE (PLAQUENIL) 200 mg tablet Take 1 tablet by mouth every 12 hours. No current facility-administered medications for this visit. REVIEW OF SYSTEMS Review of Systems OBJECTIVE: There were no vitals taken for this visit. PHYSICAL EXAM: Mental State : Alert, memory function unremarkable. Attention span and concentration normal for patient's age. Speech normal, no receptive or expressive speech deficit. Recent and remote memory normal. Orientation : Oriented to person, place and time. Cranial Nerves : Grossly intact. Sensory: Normal Sensation in upper and lower extremities and trunk to touch and noxious stimuli. Motor: Normal muscle tone and bulk. No tremor or uncontrollable movements. No spasticity or tremor. Gait and Station: Walks with a cane STRENGTH: Upper Extremity Strength Exam Right Left Elbow Flexion 5/5 5/5 Elbow Extension 5/5 5/5 Finger Flexion 5/5 5/5 Finger Extension 5/5 5/5 Finger Abduction 5/5 5/5 Lower Extremity Strength Exam Right Left Hip Flexion 4/5 5/5 Knee Flexion 4/5 5/5 Knee Extension 4-/5 5/5 Dorsiflexion 5/5 5/5 Plantarflexion 5/5 5/5 Reflexes Right Left Biceps C5-C6 +1 +1 Triceps C7-C8 +1 +1 Wrist C5-6 +1 +1 Patellar L3-4 +1 +1 Achilles L5-S1 +1 +1 Pathologic Reflexes Right Left Dill's Negative Negative Clonus Negative Negative Data Review IMAGING STUDIES: XR LUMBAR 05/26/2023 - shows diffuse spondylosis and degenerative disc disease throughout the lumbar spine All images independently reviewed by me Assessment AND Plan: Mr. Fitzgerald is a 73-year-old man with history of rheumatoid arthritis who presents with a 3-month history of right-sided low back pain that radiates into his right hip, right groin, and right lateral thigh. It does not extend below his knee. He has no symptoms in the left side. It has been difficult for him to walk due to the pain. He is also been ill recently; he is currently recovering from pneumonia and is lost approximately 20 pounds over the last few months. He has been recently walking with a cane due to the pain, and he feels very deconditioned due to his pain and recent illness. I reviewed his x-ray with him, which shows diffuse spondylosis and degenerative changes. He does have some pain limited weakness with his right hip flexor and knee extensors. I will order an MRI of his lumbar spine to evaluate for any nerve compression. I will also refer him to physical therapy to help with his conditioning and to help get him some symptomatic relief. I will also try a course of Medrol to see if this can help his radicular pain. I will see him back in the office once his MRI is complete we can discuss the next steps. All questions were answered. Attribution: The following portions of the patient's history were reviewed, confirmed, and updated as (more content not included)... [facility] 05-05-2023 Miscellaneous Notes Patient called back and explained to patient to follow up with PCP and notified him of covid results. Patient states understanding and voices no concerns at this time. Karolina Pulliam LPN Left message for patient to call urgent care. Karolina Pulliam LPN ----- Message from Magui Chavez DO sent at 05/04/2023 8:19 PM EST ----- Is notify patient that review of the chest x-ray on April 26, 2023 shows that there is a CT exam to further evaluate. The patient should contact her primary care physician to get in and get a CT exam of the chest. This should be done as soon as possible. documented in this encounter [facility] 04-26-2023 Note HNO ID: [id number] Author: Jose Brar RT(R) Service: ? Author Type: Technologist Type: Progress Notes Filed: 04/26/2023 2:00 PM Note Text: Radiology Service Progress Note PATIENT NAME: Galindo Fitzgerald DATE OF SERVICE: April 26, 2023 TIME: 1:59 PM PATIENT IDENTITY VERIFICATION COMPLETED USING TWO (2) IDENTIFIERS: Name and Date of confirmed by patient verbally. FALL SCREENING: Has the patient had 2 falls in the last year or 1 fall with injury or currently using an Ambulatory Assistive Device (Walker, Cane, Wheelchair, Crutches, etc.)? No PATIENT GENDER DATA: Male PATIENT RELEVANT IMPLANT DATA REVIEWED: Not Applicable RADIOLOGY DEPARTMENT: General X-ray: Exam(s) Completed: Chest X-Ray PERIPHERAL IV DATA: Not applicable SIGNED BY: RT Flori(R) April 26, 2023 1:[address] [facility] 04-26-2023 Note HNO ID: [id number] Author: Nica Pizano APRN.EMPLOYEE RELATIONS CONSULTANT Service: ? Author Type: Nurse Practitioner Type: Progress Notes Filed: 04/26/2023 1:55 PM Note Text: Galindo Fitzgerald is a 73 year old male who presents with Cough (Congestion, fatigue all x 2 weeks) Galindo is a 73-year-old male who presents today with fatigue, cough, congestion and a runny nose present for about the past 2 to 3 weeks. He states he is feeling a little bit better at this time. His who is in the room with him states she does not feel like he is getting any better. He does have a history of rheumatoid arthritis and just finished up a standing dose of prednisone for increased joint pain. He endorses lower back pain and hip pain. No fevers or chills. No difficulty breathing, chest pain or shortness of breath. He does endorse chest tightness especially with his cough. He is not taking anything at home for this. Would like swabbed for COVID, flu and RSV. No other complaints. History reviewed. No pertinent past medical history. There is no problem list on file for this patient. Current Outpatient Medications Medication Sig Dispense Refill hydrOXYchloroQUINE (PLAQUENIL) 200 mg tablet Take 1 tablet by mouth every 12 hours. doxycycline (VIBRA-TABS) 100 mg tablet Take 1 tablet by mouth two times a day for 10 days. 20 tablet 0 No current facility-administered medications for this visit. Social History Tobacco Use Smoking status: Never Smokeless tobacco: Never Vaping Use Vaping Use: Never used Substance Use Topics Alcohol use: Yes Drug use: Not Currently Alcohol Use: Yes Tobacco Use: Never History reviewed. No pertinent family history. Review of Systems Constitutional: Positive for malaise/fatigue. Negative for chills and fever. HENT: Positive for congestion. Negative for sinus pain and sore throat. Eyes: Negative for pain, discharge and redness. Respiratory: Positive for cough. Negative for sputum production, shortness of breath and wheezing. Cardiovascular: Negative for chest pain and palpitations. Gastrointestinal: Negative for abdominal pain, nausea and vomiting. Musculoskeletal: Positive for back pain and joint pain. Skin: Negative for itching and rash. Neurological: Negative for dizziness and headaches. BP 125/83 Pulse 80 Temp 98.4 Resp 20 SpO2 97% Physical Exam Vitals and nursing note reviewed. Constitutional: General: He is not in acute distress. Appearance: Normal appearance. He is normal weight. He is not ill-appearing, toxic-appearing or diaphoretic. HENT: Head: Normocephalic and atraumatic. Right Ear: Tympanic membrane, ear canal and external ear normal. Left Ear: Tympanic membrane, ear canal and external ear normal. Nose: Congestion and rhinorrhea present. Mouth/Throat: Mouth: Mucous membranes are moist. Pharynx: Oropharynx is clear. No oropharyngeal exudate or posterior oropharyngeal erythema. Eyes: Extraocular Movements: Extraocular movements intact. Conjunctiva/sclera: Conjunctivae normal. Cardiovascular: Rate and Rhythm: Normal rate and regular rhythm. Heart sounds: Normal heart sounds. Pulmonary: Effort: Pulmonary effort is normal. No respiratory distress. Breath sounds: Normal breath sounds. No stridor. No wheezing, rhonchi or rales. Musculoskeletal: General: Normal range of motion. Cervical back: Normal range of motion and neck supple. Lymphadenopathy: Cervical: No cervical adenopathy. Skin: General: Skin is warm and dry. Neurological: General: No focal deficit present. Mental Status: He is alert and oriented to person, place, and time. Psychiatric: Mood and Affect: Mood normal. Behavior: Behavior normal. ASSESSMENT/PLAN: 1. Acute cough - ICD9: 786.2, ICD10: R05.1 (primary diagnosis) - XR CHEST 2V FRONTAL/LAT - COVID AND INFLUENZA A/B AND RSV NAAT, EXPEDITED 2. Pneumonia of right middle lobe due to infectious organism - ICD9: 486, ICD10: J18.9 - DOXYCYCLINE HYCLATE 100 MG TABLET Patient is well appearing, non toxic, not hypoxic and appropriate for outpatient treatment and management at the time of evaluation today. 73-year-old male who presents today with cough, congestion and fatigue for the past 2 to 3 weeks. states he has had pneumonia before in the past. They are concerned for COVID, flu and RSV. Will swab for COVID, flu and RSV. Will obtain chest x-ray. Chest x-ray did show area of consolidation in the right middle lobe. Will place patient on doxycycline for coverage. Vital signs are stable at this time. Supportive care instructions reviewed. Instructed patient should he not feel any better within the next 2 to 3 days to call PCP. Instructed patient if his joint pain continues to follow back up with political science chair. Patient states he has an appointment in June. Instructed patient should he have any difficulty breathing, chest pain or shortness of breath he needs to go to the ER for further (more content not included)... [facility] 04-26-2023 Instructions Nica Pizano APRN.HARSHA - 04/26/2023 1:48 PM EST Please take medication as directed. If you are not feeling any better within the next 3 to 5 days please follow-up with your PCP or back at urgent care. GENERAL INFORMATION: Pneumonia is a lung infection caused by bacteria, viruses, or bacteria-like germs. It usually cannot be spread to other people. INSTRUCTIONS: 1. If you are given a prescription for antibiotics, take them as ordered by your doctor until they are all gone. 2. Use a cool-mist humidifier or vaporizer to increase air moisture. This will make it easier for you to breathe. Do not use hot steam. 3. Rest in until your temperature is normal (98.6 F or 37 C) and your chest pain and shortness of breath are gone. 4. Slowly restart your normal activities. You may feel weak and tired for up to six weeks. 5. Drink at least one glass of water or other liquid every hour. This will help thin sputum and make it easier to cough up. 6. If you have chest pain, applying a heating pad or warm compresses for 10 to 20 minutes several times a day to the painful area may lessen the pain. 7. Take several deep breaths and then cough frequently during the day. This will help get rid of the infection. 8. You may take medicines that you can buy without a prescription to treat pain and fever. Use cough medicine only if absolutely necessary as coughing helps clear the infection. CONTACT YOUR DOCTOR IF: 1. Your temperature is over 102 F (39 C). 2. Your chest pain, fever or chills do not get better with medicine in 2-3 days. 3. You develop nausea, vomiting or diarrhea. 4. You are coughing up large amounts of bloody sputum. 5. You have any problems that may be related to the medicine that you are taking (such as rash, itching, swelling, or stomach pain). RETURN TO THE EMERGENCY DEPARTMENT IF: 1. You have a lot of trouble breathing or you have dark or bluish fingernails, toenails, or skin. 2. You have a severe headache, neck stiffness, or feel confused. documented in this encounter [facility] 04-26-2023 History of Present illness Narrative Galindo Fitzgerald is a 73 year old male who presents with Cough (Congestion, fatigue all x 2 weeks) Galindo is a 73-year-old male who presents today with fatigue, cough, congestion and a runny nose present for about the past 2 to 3 weeks. He states he is feeling a little bit better at this time. His who is in the room with him states she does not feel like he is getting any better. He does have a history of rheumatoid arthritis and just finished up a standing dose of prednisone for increased joint pain. He endorses lower back pain and hip pain. No fevers or chills. No difficulty breathing, chest pain or shortness of breath. He does endorse chest tightness especially with his cough. He is not taking anything at home for this. Would like swabbed for COVID, flu and RSV. No other complaints. History reviewed. No pertinent past medical history. There is no problem list on file for this patient. Current Outpatient Medications Medication Sig Dispense Refill hydrOXYchloroQUINE (PLAQUENIL) 200 mg tablet Take 1 tablet by mouth every 12 hours. doxycycline (VIBRA-TABS) 100 mg tablet Take 1 tablet by mouth two times a day for 10 days. 20 tablet 0 No current facility-administered medications for this visit. Social History Tobacco Use Smoking status: Never Smokeless tobacco: Never Vaping Use Vaping Use: Never used Substance Use Topics Alcohol use: Yes Drug use: Not Currently Alcohol Use: Yes Tobacco Use: Never History reviewed. No pertinent family history. Review of Systems Constitutional: Positive for malaise/fatigue. Negative for chills and fever. HENT: Positive for congestion. Negative for sinus pain and sore throat. Eyes: Negative for pain, discharge and redness. Respiratory: Positive for cough. Negative for sputum production, shortness of breath and wheezing. Cardiovascular: Negative for chest pain and palpitations. Gastrointestinal: Negative for abdominal pain, nausea and vomiting. Musculoskeletal: Positive for back pain and joint pain. Skin: Negative for itching and rash. Neurological: Negative for dizziness and headaches. BP 125/83 Pulse 80 Temp 98.4 Resp 20 SpO2 97% Physical Exam Vitals and nursing note reviewed. Constitutional: General: He is not in acute distress. Appearance: Normal appearance. He is normal weight. He is not ill-appearing, toxic-appearing or diaphoretic. HENT: Head: Normocephalic and atraumatic. Right Ear: Tympanic membrane, ear canal and external ear normal. Left Ear: Tympanic membrane, ear canal and external ear normal. Nose: Congestion and rhinorrhea present. Mouth/Throat: Mouth: Mucous membranes are moist. Pharynx: Oropharynx is clear. No oropharyngeal exudate or posterior oropharyngeal erythema. Eyes: Extraocular Movements: Extraocular movements intact. Conjunctiva/sclera: Conjunctivae normal. Cardiovascular: Rate and Rhythm: Normal rate and regular rhythm. Heart sounds: Normal heart sounds. Pulmonary: Effort: Pulmonary effort is normal. No respiratory distress. Breath sounds: Normal breath sounds. No stridor. No wheezing, rhonchi or rales. Musculoskeletal: General: Normal range of motion. Cervical back: Normal range of motion and neck supple. Lymphadenopathy: Cervical: No cervical adenopathy. Skin: General: Skin is warm and dry. Neurological: General: No focal deficit present. Mental Status: He is alert and oriented to person, place, and time. Psychiatric: Mood and Affect: Mood normal. Behavior: Behavior normal. ASSESSMENT/PLAN: 1. Acute cough - ICD9: 786.2, ICD10: R05.1 (primary diagnosis) - XR CHEST 2V FRONTAL/LAT - COVID AND INFLUENZA A/B & RSV NAAT, EXPEDITED 2. Pneumonia of right middle lobe due to infectious organism - ICD9: 486, ICD10: J18.9 - DOXYCYCLINE HYCLATE 100 MG TABLET Patient is well appearing, non toxic, not hypoxic and appropriate for outpatient treatment and management at the time of evaluation today. 73-year-old male who presents today with cough, congestion and fatigue for the past 2 to 3 weeks. states he has had pneumonia before in the past. They are concerned for COVID, flu and RSV. Will swab for COVID, flu and RSV. Will obtain chest x-ray. Chest x-ray did show area of consolidation in the right middle lobe. Will place patient on doxycycline for coverage. Vital signs are stable at this time. Supportive care instructions reviewed. Instructed patient should he not feel any better within the next 2 to 3 days to call PCP. Instructed patient if his joint pain continues to follow back up with political science chair. Patient states he has an appointment in June. Instructed patient should he have any difficulty breathing, chest pain or shortness of breath he needs to go to the ER for further evaluation and treatment. Patient was agreeable and verbalized understanding of the plan. Discharged in stable condition. Patient's VSS, medication list, allergies, past medical history, and pertinent surgical and family history have been reviewed. -Patient education provided today. -Follow up with your PCP if you do not feel any better within 2-3 days - Report to ED with any new or worsening symptoms or life-threatening concerns - Warning signs of worsening condition explained to patient - Patient left in stable condition after questions answered and patient verbalizes understanding . This note was partially generated using Fiz voice recognition system, and there may be some incorrect words, spellings, and punctuation that were not noted in checking the note before saving. Nica Pizano APRN.CNP 04/26/23 1:49 PM documented in this encounter [facility] 07-14-2022 Note HNO ID: [id number] Author: RT Maryann(Shanta) Service: Radiology Author Type: Technologist Type: Procedures Filed: 07/14/2022 2:14 PM Note Text: Radiology Service Progress Note PATIENT NAME: Galindo Fitzgerald DATE OF SERVICE: July 14, 2022 TIME: 2:14 PM PATIENT IDENTITY VERIFICATION COMPLETED USING TWO (2) IDENTIFIERS: Name and Date of confirmed by patient verbally. FALL SCREENING: Has the patient had 2 falls in the last year or 1 fall with injury or currently using an Ambulatory Assistive Device (Walker, Cane, Wheelchair, Crutches, etc.)? No PATIENT GENDER DATA: Male PATIENT RELEVANT IMPLANT DATA REVIEWED: Not Applicable RADIOLOGY DEPARTMENT: General X-ray: Exam(s) Completed: Upper Extremity X-Ray(s): Hand, bilateral PERIPHERAL IV DATA: Not applicable SIGNED BY: RT Maryann(R) July 14, 2022 2:[address] [facility] 07-14-2022 Procedure note Radiology Service Progress Note PATIENT NAME: Galindo Fitzgerald DATE OF SERVICE: July 14, 2022 TIME: 2:14 PM PATIENT IDENTITY VERIFICATION COMPLETED USING TWO (2) IDENTIFIERS: Name and Date of confirmed by patient verbally. FALL SCREENING: Has the patient had 2 falls in the last year or 1 fall with injury or currently using an Ambulatory Assistive Device (Walker, Cane, Wheelchair, Crutches, etc.)? No PATIENT GENDER DATA: Male PATIENT RELEVANT IMPLANT DATA REVIEWED: Not Applicable RADIOLOGY DEPARTMENT: General X-ray: Exam(s) Completed: Upper Extremity X-Ray(s): Hand, bilateral PERIPHERAL IV DATA: Not applicable SIGNED BY: RT Maryann(R) July 14, 2022 2:14 PM documented in this encounter [facility] Mass of lower lobe of right lung- Primary Swelling, mass, or lump in chest Lytic bone lesion of right femur Other disorders of bone and cartilage Liver lesion, left lobe Other specified disorders of liver Abnormal findings on diagnostic imaging of spine Nonspecific (abnormal) findings on radiological and other examination of musculoskeletal system Abnormal finding on chest xray Other nonspecific abnormal finding of lung field Abnormal finding on imaging of liver Metastatic malignant neoplasm, unspecified site (HCC) [facility]* Diagnosis 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 Liver lesion Other specified disorders of liver [facility]* Diagnosis Palliative care encounter- Primary Encounter for palliative care Liver lesion Other specified disorders of liver [facility]* Diagnosis Neoplasm related pain (acute) (chronic)- Primary documented in this encounter [facility] note* Diagnosis Cancer related pain- Primary Neoplasm related pain (acute) (chronic) Palliative care by specialist Mass of lower lobe of right lung Swelling, mass, or lump in chest Therapeutic opioid induced constipation Hiccups Hiccough Anxiety associated with cancer diagnosis (HCC) Weight loss Loss of weight Decreased oral intake Other symptoms concerning nutrition, metabolism, and development [facility]* Diagnosis Spinal stenosis of lumbar region, unspecified whether neurogenic claudication present documented in this encounter [facility] note* Diagnosis Spinal stenosis of lumbar region, unspecified whether neurogenic claudication present documented in this encounter [facility] note* Diagnosis 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) [facility]* Diagnosis Cancer of trachea, bronchus, and lung (HCC)- Primary Malignant neoplasm of other parts of bronchus or lung Adenocarcinoma of lung metastatic to liver, unspecified laterality (HCC) [facility]* Diagnosis Primary lung cancer with metastasis from lung to other site, right (HCC)- Primary 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) Acquired hypothyroidism Unspecified hypothyroidism [facility] Encounter for education- Primary Counseling NOS Primary lung cancer with metastasis from lung to other site, right (HCC) [facility] Diagnosis Primary lung cancer with metastasis from lung to other site, right (HCC)- Primary 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) documented in this encounter [facility] Plan of care note* Visit Details Visit Type - Hospice Admis maci Discipline -Fpc Problems Problem Description Start Date Status Goals Interve ntions Patient Goals Disciplines: ALL HOSPICE 07/07/2023 Active 1 goal linked to scheduled/documente d intervention 1 goal intervention scheduled/documente d in this visit General Safety Disciplines: ALL HOSPICE 07/07/2023 Active 2 goals linked to scheduled/documente d interventions 6 goal interventions scheduled/documente d in this visit Referrals Disciplines: ALL HOSPICE 07/07/2023 Active 1 goal linked to scheduled/documente d intervention 3 goal interventions scheduled/documente d in this visit Education about end of life Disciplines: 07/07/2023 Active 1 goal linked to scheduled/documente d intervention 3 goal interventions scheduled/documente d in this visit Symptom Management-raquel sea, pain, dyspnea, anxiety Disciplines: 07/07/2023 Active 1 goal linked to scheduled/documente d intervention 1 goal intervention scheduled/documente d in this visit Goals Goal Associated Problem Outcome Goal Met? Visit Notes Patient or patient's caregiver will achieve end of life goals Description: Patient/Patient's caregiver will achieve end of life goal: being pain free Patient Goals In Progress No Falls General Safety In Progress No Patient's safety needs are met Description: Pts safety and care needs are met. General Safety In Progress No Patient will have end of life needs met by multidisciplinary team Referrals In Progress No CG will verbalize progression of s/s of end of life Description: CG will verbalize progression of s/s of end of life within 2 weeks Education about end of life In Progress No Patient will have symptoms managed Description: Pt's pain of 8/10 will decrease to a 4/10 within 24 hours using the hospice plan of care Pt's constipation will resolve within 24 hours using the hospice plan of care Symptom Management-nausea, pain, dyspnea, anxiety In Progress No Interventions Intervention Associated Problem/Goal Status Variance Visit Notes Interdisciplinary development and implementation of hospice care plan to assist patient/patient's caregiver in achieving stated goal(s). Problem:Patient Goals Goal:Patient or patient's caregiver will achieve end of life goals Completed Patient will remain fall free Description: Patient will remain fall free for 2 weeks. Problem:General Safety Goal:Falls Completed Assessed for walking aids, assistive technologies and devices Problem:General Safety Goal:Falls Completed Implemented fall reduction program Problem:General Safety Goal:Falls Completed Encourage family/Caregiver to provide stay with patient if appropriate Problem:General Safety Goal:Falls Completed Educate on bleeding precautions Problem:General Safety Goal:Patient's safety needs are met Completed Encourage family/CG to stay with Pt if and when appropriate Problem:General Safety Goal:Patient's safety needs are met Completed Hospice Referral for Bereavement Problem:Referrals Goal:Patient will have end of life needs met by multidisciplinary team Completed Hospice Referral for Spiritual Care Problem:Referrals Goal:Patient will have end of life needs met by multidisciplinary team Completed Hospice Referral for Medical Social Work Problem:Referrals Goal:Patient will have end of life needs met by multidisciplinary team Completed Provide/review CG Confidence Problem:Education about end of life Goal:CG will verbalize progression of s/s of end of life Completed Provide/review When the Time Comes Problem:Education about end of life Goal:CG will verbalize progression of s/s of end of life Completed Explain and discuss end of life Problem:Education about end of life Goal:CG will verbalize progression of s/s of end of life Completed Educate on interventions to relieve symptoms Problem:Symptom Management-nausea, pain, dyspnea, anxiety Goal:Patient will have symptoms managed Completed documented in this encounter [facility] Plan of care note* Visit Details Visit Type - Hospice Visit Discipline -Fpc Problems Problem Description Start Date Status Goals Interve ntions Patient Goals Disciplines: ALL HOSPICE 07/07/2023 Active 1 goal linked to scheduled/documente d intervention 1 goal intervention scheduled/documente d in this visit General Safety Disciplines: ALL HOSPICE 07/07/2023 Active 2 goals linked to scheduled/documente d interventions 6 goal interventions scheduled/documente d in this visit Referrals Disciplines: ALL HOSPICE 07/07/2023 Active 1 goal linked to scheduled/documente d intervention 3 goal interventions scheduled/documente d in this visit Education about end of life Disciplines: 07/07/2023 Active 1 goal linked to scheduled/documente d intervention 3 goal interventions scheduled/documente d in this visit Symptom Management-raquel sea, pain, dyspnea, anxiety Disciplines: 07/07/2023 Active 2 goals linked to scheduled/documente d interventions 1 goal intervention scheduled/documente d in this visit Goals Goal Associated Problem Outcome Goal Met? Visit Notes Patient or patient's caregiver will achieve end of life goals Description: Patient/Patient's caregiver will achieve end of life goal: being pain free Patient Goals In Progress No Falls General Safety In Progress No Patient's safety needs are met Description: Pts safety and care needs are met. General Safety In Progress No Patient will have end of life needs met by multidisciplinary team Referrals In Progress No CG will verbalize progression of s/s of end of life Description: CG will verbalize progression of s/s of end of life within 2 weeks Education about end of life In Progress No Patient will have symptoms managed Description: Pt's pain of 8/10 will decrease to a 4/10 within 24 hours using the hospice plan of care Pt's constipation will resolve within 24 hours using the hospice plan of care Symptom Management-nausea, pain, dyspnea, anxiety Completed Yes Patient reports that pain has been reduced or controlled through verbal or nonverbal means and that measures to promote comfort are effective Description: Pt will report pain is controlled at < 5/10 through 07/12/23 Symptom Management-nausea, pain, dyspnea, anxiety In Progress No Interventions Intervention Associated Problem/Goal Status Variance Visit Notes Interdisciplinary development and implementation of hospice care plan to assist patient/patient's caregiver in achieving stated goal(s). Problem:Patient Goals Goal:Patient or patient's caregiver will achieve end of life goals Completed Patient will remain fall free Description: Patient will remain fall free for 2 weeks. Problem:General Safety Goal:Falls Completed Assessed for walking aids, assistive technologies and devices Problem:General Safety Goal:Falls Completed Implemented fall reduction program Problem:General Safety Goal:Falls Completed Encourage family/Caregiver to provide stay with patient if appropriate Problem:General Safety Goal:Falls Completed Educate on bleeding precautions Problem:General Safety Goal:Patient's safety needs are met Completed Encourage family/CG to stay with Pt if and when appropriate Problem:General Safety Goal:Patient's safety needs are met Completed Hospice Referral for Bereavement Problem:Referrals Goal:Patient will have end of life needs met by multidisciplinary team Completed Hospice Referral for Spiritual Care Problem:Referrals Goal:Patient will have end of life needs met by multidisciplinary team Completed Hospice Referral for Medical Social Work Problem:Referrals Goal:Patient will have end of life needs met by multidisciplinary team Completed Provide/review CG Confidence Problem:Education about end of life Goal:CG will verbalize progression of s/s of end of life Completed Provide/review When the Time Comes Problem:Education about end of life Goal:CG will verbalize progression of s/s of end of life Completed Explain and discuss end of life Problem:Education about end of life Goal:CG will verbalize progression of s/s of end of life Completed Educate on interventions to relieve symptoms Problem:Symptom Management-nausea, pain, dyspnea, anxiety Goal:Patient will have symptoms managed Completed documented in this encounter [facility] Plan of care note* Visit Details Visit Type - Hospice Visit Discipline -Fpc Problems Problem Description Start Date Status Goals Interve ntions Patient Goals Disciplines: ALL HOSPICE 07/07/2023 Active 1 goal linked to scheduled/documente d intervention 1 goal intervention scheduled/documente d in this visit General Safety Disciplines: ALL HOSPICE, 07/07/2023 Active 3 goals linked to scheduled/documente d interventions 6 goal interventions scheduled/documente d in this visit Referrals Disciplines: ALL HOSPICE 07/07/2023 Active 1 goal linked to scheduled/documente d intervention 3 goal interventions scheduled/documente d in this visit Education about end of life Disciplines: 07/07/2023 Active 1 goal linked to scheduled/documente d intervention 3 goal interventions scheduled/documente d in this visit Symptom Management-raquel sea, pain, dyspnea, anxiety Disciplines: 07/07/2023 Active 1 goal linked to scheduled/documente d intervention Goals Goal Associated Problem Outcome Goal Met? Visit Notes Patient or patient's caregiver will achieve end of life goals Description: Patient/Patient's caregiver will achieve end of life goal: being pain free Patient Goals In Progress No Falls General Safety Completed Yes Pt fell on 07/12/23 Patient's safety needs are met Description: Pts safety and care needs are met. General Safety In Progress No Falls Description: Pt will have no more falls through 08/05/23 with use of walker/cane General Safety In Progress No Patient will have end of life needs met by multidisciplinary team Referrals In Progress No CG will verbalize progression of s/s of end of life Description: CG will verbalize progression of s/s of end of life within 2 weeks Education about end of life In Progress No Patient reports that pain has been reduced or controlled through verbal or nonverbal means and that measures to promote comfort are effective Description: Pt will report pain is controlled at < 5/10 through 07/12/23 Symptom Management-nausea, pain, dyspnea, anxiety Completed Yes Interventions Intervention Associated Problem/Goal Status Variance Visit Notes Interdisciplinary development and implementation of hospice care plan to assist patient/patient's caregiver in achieving stated goal(s). Problem:Patient Goals Goal:Patient or patient's caregiver will achieve end of life goals Completed Patient will remain fall free Description: Patient will remain fall free for 2 weeks. Problem:General Safety Goal:Falls Completed Assessed for walking aids, assistive technologies and devices Problem:General Safety Goal:Falls Completed Implemented fall reduction program Problem:General Safety Goal:Falls Completed Encourage family/Caregiver to provide stay with patient if appropriate Problem:General Safety Goal:Falls Completed Educate on bleeding precautions Problem:General Safety Goal:Patient's safety needs are met Completed Encourage family/CG to stay with Pt if and when appropriate Problem:General Safety Goal:Patient's safety needs are met Completed Hospice Referral for Bereavement Problem:Referrals Goal:Patient will have end of life needs met by multidisciplinary team Completed Hospice Referral for Spiritual Care Problem:Referrals Goal:Patient will have end of life needs met by multidisciplinary team Completed Hospice Referral for Medical Social Work Problem:Referrals Goal:Patient will have end of life needs met by multidisciplinary team Completed Provide/review CG Confidence Problem:Education about end of life Goal:CG will verbalize progression of s/s of end of life Completed Provide/review When the Time Comes Problem:Education about end of life Goal:CG will verbalize progression of s/s of end of life Completed Explain and discuss end of life Problem:Education about end of life Goal:CG will verbalize progression of s/s of end of life Completed documented in this encounter [facility] Summary Purpose Family History No Family History Records FoundNo Family History Records FoundNo Family History Records FoundNo Family History Records FoundNo Family History Records Found Advance Directives Latest Code Status on File Code Status Date Activated Date Inactivated Comments Full Code 06/15/2023 2:52 PM Latest Code Status on File Code Status Date Activated Date Inactivated Comments Full Code 06/15/2023 2:52 PM Latest Code Status on File Code Status Date Activated Date Inactivated Comments Full Code 06/15/2023 2:52 PM 06/28/2023 7:25 AM Latest Code Status on File Code Status Date Activated Date Inactivated Comments Full Code 06/15/2023 2:52 PM 06/28/2023 7:25 AM Latest Code Status on File Code Status Date Activated Date Inactivated Comments Full Code 07/07/2023 2:35 PM Code Status History Code Status Date Activated Date Inactivated Comments Full Code 06/15/2023 2:52 PM 06/28/2023 7:25 AM Latest Code Status on File Code Status Date Activated Date Inactivated Comments Full Code 07/07/2023 2:35 PM Code Status History Code Status Date Activated Date Inactivated Comments Full Code 06/15/2023 2:52 PM 06/28/2023 7:25 AM Health Concerns Infection Onset Date Last Indicated Resolved Time COVID-19 Rule-Out 04/26/2023 04/26/2023 Reason for Referral Specialty Diagnoses / Procedures Referred By Contac t Referred To Contact MR IMAGING Diagnoses Lytic bone lesion of right femur Liver lesion, left lobe Mass of lower lobe of right lung Procedures MRI BRAIN WO/W IVCON MRI BRAIN BRAIN STEM W/O W/CONTRAST MATERIAL Trenton Jaquez, DO [address] [facility] [place] [address] [place] [id number] Referral ID Status Reason Start Date Expiration Date Visits Requested Visits Authorized [id number] Authorized Auto-Generat ed Referral 06/17/2023 07/16/2024 1 1 Specialty Diagnoses / Procedures Referred By Contac t Referred To Contact Diagnoses Lytic bone lesion of right femur Liver lesion, left lobe Mass of lower lobe of right lung Procedures CONSULT TO [facility] Trenton Jaquez, DO [address] [place] [address] Home [address] [place] [id number] Referral ID Status Reason Start Date Expiration Date Visits Requested Visits Authorized [id number] Pending Review PCP Requested Referral 06/17/2023 09/15/2023 1 1 Specialty Diagnoses / Procedures Referred By Contac t Referred To Contact XR IMAGING Diagnoses Lytic bone lesion of right femur Procedures XR HIP GENERAL 3V PELV/AP/LAT RIGHT RADEX HIP UNILATERAL WITH PELVIS 2-3 VIEWS Trenton Jaquez, DO [address] [facility] [place] [address] [place] [id number] Referral ID Status Reason Start Date Expiration Date V isits Requested Visits Authorized [id number] Closed Auto-Generate d Referral 06/17/2023 07/16/2024 1 1 Specialty Diagnoses / Procedures Referred By Contac t Referred To Contact HOSPICE Diagnoses Cancer of trachea, bronchus, 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, unspecified laterality (HCC) Procedures CONSULT TO [facility] Trenton Jaquez, DO [address] [facility] [place] [address] Home Hospice [address] [place] [address] Referral ID Status Reason Start Date Expiration Date Visits Requested Visits Authorized [id number] Pending Review PCP Requested Referral 07/05/2023 10/03/2023 1 1 Specialty Diagnoses / Procedures Referred By Contac t Referred To Contact Diagnoses Primary lung cancer with metastasis from lung to other site, right (HCC) 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) Procedures CONSULT TO PALLIATIVE CARE OFFICE/OUTPATIENT [facility] 60 MINUTES Trenton Jaquez, DO [address] [facility] [place] [address] Referral ID Status Reason Start Date Expiration Date Visits Requested Visits Authorized [id number] Authorized PCP Requested Referral 07/14/2023 07/13/2024 1 1 Additional Source Comments (unrecognized sect ion and content) No Status Records FoundNo Status Records FoundNo Status Records FoundNo Status Records FoundNo Status Records Found INFORMATION SOURCE (unrecogn ized section and content) DATE CREATED AUTHOR AUTHOR'S ORGANIZ ATION 06/22/2021 [facility] [place] DATE CREATED AUTHOR AUTHOR'S ORGANIZ ATION 07/04/2023 [employer] [facility] [facility] DATE CREATED AUTHOR AUTHOR'S ORGANIZ ATION 07/10/2023 [facility] DATE CREATED AUTHOR AUTHOR'S ORGANIZ ATION 07/13/2023 [facility] Source Comments (unrecognize d section and content) In the event this informatio n is protected by the Federal Confidentiality of Alcohol and Drug Abuse Patient Records regulations: The Federal rules restrict any use of the information to criminally investigate or prosecute any alcohol or drug abuse patient.[facility] the event this information is protected by the Federal Confidentiality of Alcohol and Drug Abuse Patient Records regulations: The Federal rules restrict any use of the information to criminally investigate or prosecute any alcohol or drug abuse patient.[facility] HospitalIn the event this information is protected by the Federal Confidentiality of Alcohol and Drug Abuse Patient Records regulations: The Federal rules restrict any use of the information to criminally investigate or prosecute any alcohol or drug abuse patient.[facility] HospitalIn the event this information is protected by the Federal Confidentiality of Alcohol and Drug Abuse Patient Records regulations: The Federal rules restrict any use of the information to criminally investigate or prosecute any alcohol or drug abuse patient.[facility] HospitalIn the event this information is protected by the Federal Confidentiality of Alcohol and Drug Abuse Patient Records regulations: The Federal rules restrict any use of the information to criminally investigate or prosecute any alcohol or drug abuse patient.[facility] HospitalIn the event this information is protected by the Federal Confidentiality of Alcohol and Drug Abuse Patient Records regulations: The Federal rules restrict any use of the information to criminally investigate or prosecute any alcohol or drug abuse patient.[facility] HospitalIn the event this information is protected by the Federal Confidentiality of Alcohol and Drug Abuse Patient Records regulations: The Federal rules restrict any use of the information to criminally investigate or prosecute any alcohol or drug abuse patient.[facility] HospitalIn the event this information is protected by the Federal Confidentiality of Alcohol and Drug Abuse Patient Records regulations: The Federal rules restrict any use of the information to criminally investigate or prosecute any alcohol or drug abuse patient.[facility] HospitalIn the event this information is protected by the Federal Confidentiality of Alcohol and Drug Abuse Patient Records regulations: The Federal rules restrict any use of the information to criminally investigate or prosecute any alcohol or drug abuse patient.[facility] HospitalIn the event this information is protected by the Federal Confidentiality of Alcohol and Drug Abuse Patient Records regulations: The Federal rules restrict any use of the information to criminally investigate or prosecute any alcohol or drug abuse patient.[facility] HospitalIn the event this information is protected by the Federal Confidentiality of Alcohol and Drug Abuse Patient Records regulations: The Federal rules restrict any use of the information to criminally investigate or prosecute any alcohol or drug abuse patient.[facility] HospitalIn the event this information is protected by the Federal Confidentiality of Alcohol and Drug Abuse Patient Records regulations: The Federal rules restrict any use of the information to criminally investigate or prosecute any alcohol or drug abuse patient.[facility] HospitalIn the event this information is protected by the Federal Confidentiality of Alcohol and Drug Abuse Patient Records regulations: The Federal rules restrict any use of the information to criminally investigate or prosecute any alcohol or drug abuse patient.[facility] HospitalIn the event this information is protected by the Federal Confidentiality of Alcohol and Drug Abuse Patient Records regulations: The Federal rules restrict any use of the information to criminally investigate or prosecute any alcohol or drug abuse patient.[facility] HospitalIn the event this information is protected by the Federal Confidentiality of Alcohol and Drug Abuse Patient Records regulations: The Federal rules restrict any use of the information to criminally investigate or prosecute any alcohol or drug abuse patient.[facility] HospitalIn the event this information is protected by the Federal Confidentiality of Alcohol and Drug Abuse Patient Records regulations: The Federal rules restrict any use of the information to criminally investigate or prosecute any alcohol or drug abuse patient.[facility] HospitalIn the event this information is protected by the Federal Confidentiality of Alcohol and Drug Abuse Patient Records regulations: The Federal rules restrict any use of the information to criminally investigate or prosecute any alcohol or drug abuse patient.[facility] HospitalIn the event this information is protected by the Federal Confidentiality of Alcohol and Drug Abuse Patient Records regulations: The Federal rules restrict any use of the information to criminally investigate or prosecute any alcohol or drug abuse patient.[facility] HospitalIn the event this information is protected by the Federal Confidentiality of Alcohol and Drug Abuse Patient Records regulations: The Federal rules restrict any use of the information to criminally investigate or prosecute any alcohol or drug abuse patient.[facility] HospitalIn the event this information is protected by the Federal Confidentiality of Alcohol and Drug Abuse Patient Records regulations: The Federal rules restrict any use of the information to criminally investigate or prosecute any alcohol or drug abuse patient.[facility] HospitalIn the event this information is protected by the Federal Confidentiality of Alcohol and Drug Abuse Patient Records regulations: The Federal rules restrict any use of the information to criminally investigate or prosecute any alcohol or drug abuse patient.[facility] HospitalIn the event this information is protected by the Federal Confidentiality of Alcohol and Drug Abuse Patient Records regulations: The Federal rules restrict any use of the information to criminally investigate or prosecute any alcohol or drug abuse patient.[facility] HospitalIn the event this information is protected by the Federal Confidentiality of Alcohol and Drug Abuse Patient Records regulations: The Federal rules restrict any use of the information to criminally investigate or prosecute any alcohol or drug abuse patient.[facility] HospitalIn the event this information is protected by the Federal Confidentiality of Alcohol and Drug Abuse Patient Records regulations: The Federal rules restrict any use of the information to criminally investigate or prosecute any alcohol or drug abuse patient.[facility] HospitalIn the event this information is protected by the Federal Confidentiality of Alcohol and Drug Abuse Patient Records regulations: The Federal rules restrict any use of the information to criminally investigate or prosecute any alcohol or drug abuse patient.[facility] HospitalIn the event this information is protected by the Federal Confidentiality of Alcohol and Drug Abuse Patient Records regulations: The Federal rules restrict any use of the information to criminally investigate or prosecute any alcohol or drug abuse patient.[facility] HospitalIn the event this information is protected by the Federal Confidentiality of Alcohol and Drug Abuse Patient Records regulations: The Federal rules restrict any use of the information to criminally investigate or prosecute any alcohol or drug abuse patient.[facility] HospitalIn the event this information is protected by the Federal Confidentiality of Alcohol and Drug Abuse Patient Records regulations: The Federal rules restrict any use of the information to criminally investigate or prosecute any alcohol or drug abuse patient.[facility] HospitalIn the event this information is protected by the Federal Confidentiality of Alcohol and Drug Abuse Patient Records regulations: The Federal rules restrict any use of the information to criminally investigate or prosecute any alcohol or drug abuse patient.[facility] HospitalIn the event this information is protected by the Federal Confidentiality of Alcohol and Drug Abuse Patient Records regulations: The Federal rules restrict any use of the information to criminally investigate or prosecute any alcohol or drug abuse patient.[facility] HospitalIn the event this information is protected by the Federal Confidentiality of Alcohol and Drug Abuse Patient Records regulations: The Federal rules restrict any use of the information to criminally investigate or prosecute any alcohol or drug abuse patient.[facility] HospitalIn the event this information is protected by the Federal Confidentiality of Alcohol and Drug Abuse Patient Records regulations: The Federal rules restrict any use of the information to criminally investigate or prosecute any alcohol or drug abuse patient.[facility] HospitalIn the event this information is protected by the Federal Confidentiality of Alcohol and Drug Abuse Patient Records regulations: The Federal rules restrict any use of the information to criminally investigate or prosecute any alcohol or drug abuse patient.[facility] HospitalIn the event this information is protected by the Federal Confidentiality of Alcohol and Drug Abuse Patient Records regulations: The Federal rules restrict any use of the information to criminally investigate or prosecute any alcohol or drug abuse patient.[facility] HospitalIn the event this information is protected by the Federal Confidentiality of Alcohol and Drug Abuse Patient Records regulations: The Federal rules restrict any use of the information to criminally investigate or prosecute any alcohol or drug abuse patient.[facility] HospitalIn the event this information is protected by the Federal Confidentiality of Alcohol and Drug Abuse Patient Records regulations: The Federal rules restrict any use of the information to criminally investigate or prosecute any alcohol or drug abuse patient.[facility] HospitalIn the event this information is protected by the Federal Confidentiality of Alcohol and Drug Abuse Patient Records regulations: The Federal rules restrict any use of the information to criminally investigate or prosecute any alcohol or drug abuse patient.[facility] HospitalIn the event this information is protected by the Federal Confidentiality of Alcohol and Drug Abuse Patient Records regulations: The Federal rules restrict any use of the information to criminally investigate or prosecute any alcohol or drug abuse patient.[facility] HospitalIn the event this information is protected by the Federal Confidentiality of Alcohol and Drug Abuse Patient Records regulations: The Federal rules restrict any use of the information to criminally investigate or prosecute any alcohol or drug abuse patient.[facility] HospitalIn the event this information is protected by the Federal Confidentiality of Alcohol and Drug Abuse Patient Records regulations: The Federal rules restrict any use of the information to criminally investigate or prosecute any alcohol or drug abuse patient.[facility] HospitalIn the event this information is protected by the Federal Confidentiality of Alcohol and Drug Abuse Patient Records regulations: The Federal rules restrict any use of the information to criminally investigate or prosecute any alcohol or drug abuse patient.[facility] HospitalIn the event this information is protected by the Federal Confidentiality of Alcohol and Drug Abuse Patient Records regulations: The Federal rules restrict any use of the information to criminally investigate or prosecute any alcohol or drug abuse patient.[facility] HospitalIn the event this information is protected by the Federal Confidentiality of Alcohol and Drug Abuse Patient Records regulations: The Federal rules restrict any use of the information to criminally investigate or prosecute any alcohol or drug abuse patient.[facility] HospitalIn the event this information is protected by the Federal Confidentiality of Alcohol and Drug Abuse Patient Records regulations: The Federal rules restrict any use of the information to criminally investigate or prosecute any alcohol or drug abuse patient.[facility] HospitalIn the event this information is protected by the Federal Confidentiality of Alcohol and Drug Abuse Patient Records regulations: The Federal rules restrict any use of the information to criminally investigate or prosecute any alcohol or drug abuse patient.[facility] HospitalIn the event this information is protected by the Federal Confidentiality of Alcohol and Drug Abuse Patient Records regulations: The Federal rules restrict any use of the information to criminally investigate or prosecute any alcohol or drug abuse patient.[facility] HospitalIn the event this information is protected by the Federal Confidentiality of Alcohol and Drug Abuse Patient Records regulations: The Federal rules restrict any use of the information to criminally investigate or prosecute any alcohol or drug abuse patient.[facility] HospitalIn the event this information is protected by the Federal Confidentiality of Alcohol and Drug Abuse Patient Records regulations: The Federal rules restrict any use of the information to criminally investigate or prosecute any alcohol or drug abuse patient.[facility] HospitalIn the event this information is protected by the Federal Confidentiality of Alcohol and Drug Abuse Patient Records regulations: The Federal rules restrict any use of the information to criminally investigate or prosecute any alcohol or drug abuse patient.[facility] Reason for Visit (unrecogniz ed section and content) Reason Comments Results Xray results...needi ng to follow up with PCP. Specialty Diagnoses / Procedures Referred By Jayjay t Referred To Contact HOSPICE Diagnoses Metastatic malignant neoplasm, unspecified site (HCC) Mass of lower lobe of right lung Abnormal findings on diagnostic imaging of spine Abnormal finding on chest xray Abnormal finding on imaging of liver Procedures CONSULT TO HOSPICE Rona Peter, CHEMIST INORGANIC.EMPLOYEE RELATIONS CONSULTANT [address] [place] [address] [facility] [address] [id number] Referral ID Status Reason Start Date Expiration Date Visits Requested Visits Authorized [id number] Authorized PCP Requested Referral 06/15/2023 06/14/2024 1 1 Reason Comments [id number] Initial Consult Reason Comments New Patient Specialty Diagnoses / Procedures Referred By Contac t Referred To Contact Oncology Diagnoses Mass of lower lobe of right lung Abnormal findings on diagnostic imaging of spine Abnormal finding on chest xray Abnormal finding on imaging of liver Procedures CONSULT TO ONCOLOGY OFFICE/OUTPATIENT NEW HIGH MDM 60 MINUTES Rona Peter, CHEMIST INORGANIC.EMPLOYEE RELATIONS CONSULTANT [address] [id number] Referral ID Status Reason Start Date Expiration Date V isits Requested Visits Authorized [id number] Closed PCP Requested Referral 06/13/2023 06/12/2024 1 1 Reason Comments Consult Reason Comments Symptom Management Reason Comments Insurance Authorization Reason Comments Care Coordination Reason Comments Patient Update Reason Onset Date Comments Refill Request 07/05/2023 Reason Comments Radiotherapy On-treatment Visit Reason Comments Patient Education Reason Comments Established Patient Reason Comments Orders Specialty Diagnoses / Procedures Referred By Contac t Referred To Contact HOSPICE Diagnoses Cancer of trachea, bronchus, 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, unspecified laterality (HCC) Procedures CONSULT TO [facility] Trenton Jaquez DO [address] [place] [address] [address] [place] [address] Referral ID Status Reason Start Date Expiration Date Visits Requested Visits Authorized [id number] Pending Review PCP Requested Referral 07/05/2023 10/03/2023 1 1 Reason Comments Results Reason Comments Established Patient discuss plan of care Reason Comments Parts Manager - Other Introduction Reason Comments Appointment [id number] med, readmit Initial Consult Reason Comments First Time Treatment Education Keytruda Reason Comments Chemotherapy Treatment Specialty Diagnoses / Procedures Referred By Contac t Referred To Contact Diagnoses Primary lung cancer with metastasis from lung to other site, right (HCC) 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 [address] [place] [address] Referral ID Status Reason Start Date Expiration Date V isits Requested Visits Authorized [id number] Authorized 07/14/2023 10/12/2023 99 99 Reason Comments Parts Manager - Other C1D1 Post Treat ment Call (keytruda) Care Teams (unrecognized sec tion and content) Lining Machine Operator Relationship Specialty Start Date End Date Edna Pulliam DO [address] [place] [address] PCP - General Internal Medicine 06/08/23 Philomena Leone MD [address] [id number] PCP - Hospice Attending 06/15/23 Evens Love MD [address] [place], [place] [address] [address] Neurosurgery 06/08/23 Lining Machine Operator Relationship Specialty Start Date End Date Edna Pulliam DO [address] [place] [address] PCP - General Internal Medicine 06/08/23 Philomena Leone MD [address] [place] [address] PCP - Hospice Attending 06/15/23 Evens [facility] [place] [address] Neurosurgery 06/08/23 Lining Machine Operator Relationship Specialty Start Date End Date Edna Pulliam DO [address] [place] [address] PCP - General Internal Medicine 06/08/23 Philomena Leone MD [address] [place] [address] PCP - Hospice Attending 06/15/23 Evens Love MD [address] [facility] [place] [address] Neurosurgery 06/08/23 Lining Machine Operator Relationship Specialty Start Date End Date Edna Pulliam DO [address] [place] [address] PCP - General Internal Medicine 06/08/23 Philomena Leone MD [address] [place] [address] PCP - Hospice Attending 06/15/23 Evens Love MD [address] [place] [address] Neurosurgery 06/08/23 Lining Machine Operator Relationship Specialty Start Date End Date Edna Pulliam DO [address] [place] [address] PCP - General Internal Medicine 06/08/23 Evens Love MD [address] [facility] [place] [address] Neurosurgery 06/08/23 Janneth Pierre MD, [address] [place] [address] Radiation Oncology 06/21/23 Lining Machine Operator Relationship Specialty Start Date End Date Edna Pulliam DO [address] [place] [address] PCP - General Internal Medicine 06/08/23 Evens Love MD [address] [place] [address] Neurosurgery 06/08/23 Janneth Pierre MD, [address] [place] [address] Radiation Oncology 06/21/23 Lining Machine Operator Relationship Specialty Start Date End Date Edna Pulliam DO [address] [place] [address] PCP - General Internal Medicine 06/08/23 Evens Love MD [address] [facility] [place] [address] Neurosurgery 06/08/23 Janneth Pierre MD, [address] [place] [address] Radiation Oncology 06/21/23 Lining Machine Operator Relationship Specialty Start Date End Date Edna Pulliam DO [address] [place] [address] PCP - General Internal Medicine 06/08/23 Evens Love MD [address] [facility] [address] Neurosurgery 06/08/23 Janneth Pierre MD [address] [place] [address] Radiation Oncology 06/21/23 Lining Machine Operator Relationship Specialty Start Date End Date Edna Pulliam DO [address] [place] [address] PCP - General Internal Medicine 06/08/23 Evens Love MD [address] [place] [address] Neurosurgery 06/08/23 Janneth Pierre MD [address] [place], [place] [address] [phone] Radiation Oncology 06/21/23 Lining Machine Operator Relationship Specialty Start Date End Date Edna Pulliam DO [address] [place] [address] PCP - General Internal Medicine 06/08/23 Evens Love MD [address] [facility] [place] [address] Neurosurgery 06/08/23 Janneth Pierre MD [address] [place] [address] Radiation Oncology 06/21/23 Lining Machine Operator Relationship Specialty Start Date End Date Edna Pulliam DO [address] [place] [address] PCP - General Internal Medicine 06/08/23 Evens Love MD [address] [facility] [place] [address] Neurosurgery 06/08/23 Janneth Pierre MD [address] [place] [address] Radiation Oncology 06/21/23 Lining Machine Operator Relationship Specialty Start Date End Date Edna Pulliam DO [address] [place] [address] PCP - General Internal Medicine 06/08/23 Evens Love MD [address] [place] [address] Neurosurgery 06/08/23 Janneth Pierre MD [address] [place] [address] Radiation Oncology 06/21/23 Lining Machine Operator Relationship Specialty Start Date End Date Edna Pulliam DO [address] [place] [address] PCP - General Internal Medicine 06/08/23 Evens Love MD [address] [facility] [place] [address] Neurosurgery 06/08/23 Janneth Pierre MD [address] [place] [address] Radiation Oncology 06/21/23 Lining Machine Operator Relationship Specialty Start Date End Date Edna Pulliam [address] [place] [address] PCP - General Internal Medicine 06/08/23 Evens Love MD [address] [facility] [place] [address] Neurosurgery 06/08/23 Janneth Pierre MD [address] [place], [place] [address] Radiation Oncology 06/21/23 Lining Machine Operator Relationship Specialty Start Date End Date Edna PulliamDO seymour [address] [place] [address] PCP - General Internal Medicine 06/08/23 Evens Love MD [address] [facility] [place] [address] Neurosurgery 06/08/23 Janneth Pierre MD [address] [place] [address] Radiation Oncology 06/21/23 Lining Machine Operator Relationship Specialty Start Date End Date Edna Pulliam DO [place] [address] [place] [address] PCP - General Internal Medicine 06/08/23 Evens Love MD [address] [facility] [place] [address] Neurosurgery 06/08/23 Janneth Pierre MD [address] [facility] [place] [place] [address] Radiation Oncology 06/21/23 Lining Machine Operator Relationship Specialty Start Date End Date Edna Pulliam DO [address] [place] [address] PCP - General Internal Medicine 06/08/23 Evens Love MD [address] [facility] [address] Neurosurgery 06/08/23 Janneth Pierre MD [address] [facility] [place] [place] [address] Radiation Oncology 06/21/23 Lining Machine Operator Relationship Specialty Start Date End Date Edna Pulliam DO [address] [place] [address] PCP - General Internal Medicine 06/08/23 Evens Love MD [address] [facility] [place] [address] Neurosurgery 06/08/23 Janneth Pierre MD [address] [facility] [place] [place] [address] Radiation Oncology 06/21/23 Lining Machine Operator Relationship Specialty Start Date End Date Edna Pulliam DO [address] [place] [address] PCP - General Internal Medicine 06/08/23 Philomena Leone MD [address] [place] [address] PCP - Hospice Attending 07/07/23 Evens Love MD [address] [facility] [place] [address] Neurosurgery 06/08/23 Janneth Pierre MD [address] [place] [address] Radiation Oncology 06/21/23 Lining Machine Operator Relationship Specialty Start Date End Date Edna Pulliam DO [address] [place] [address] PCP - General Internal Medicine 06/08/23 Philomena Leone MD [address] [id number] PCP - Hospice Attending 07/07/23 Evens Love MD [address] [place] [address] Neurosurgery 06/08/23 Janneth Pierre MD [address] [place] [address] Radiation Oncology 06/21/23 Lining Machine Operator Relationship Specialty Start Date End Date Edna Pulliam DO [address] [place] [address] PCP - General Internal Medicine 06/08/23 Philomena Leone MD [address] [place] [address] PCP - Hospice Attending 07/07/23 Evens Love MD [address] [place] [address] Neurosurgery 06/08/23 Janneth Pierre MD [address] [facility] [place] [address] Radiation Oncology 06/21/23 Lining Machine Operator Relationship Specialty Start Date End Date Светланаeb Edna DO Francisco [address] [place] [address] PCP - General Internal Medicine 06/08/23 Philomena Leone MD [address] [place], [place] [address] PCP - Hospice Attending 07/07/23 Evnes Love MD [address] [facility] [place] [address] Neurosurgery 06/08/23 Janneth Pierre MD [address] [place] [address] Radiation Oncology 06/21/23 Lining Machine Operator Relationship Specialty Start Date End Date Edna Pulliam DO [address] [place] [address] PCP - General Internal Medicine 06/08/23 Philomena Leone MD [address] [place] [address] PCP - Hospice Attending 07/07/23 Evens Love MD [address] [place] [address] Neurosurgery 06/08/23 Janneth Pierre MD [address] [place] [address] Radiation Oncology 06/21/23 Lining Machine Operator Relationship Specialty Start Date End Date Edna Pulliam DO [address] [place] [address] PCP - General Internal Medicine 06/08/23 Philomena Leone MD [address] [place] [address] PCP - Hospice Attending 07/07/23 Evens Love MD [address] [facility] [place] [address] Neurosurgery 06/08/23 Janneth Pierre MD [address] [place] [address] Radiation Oncology 06/21/23 Lining Machine Operator Relationship Specialty Start Date End Date Edna Pulliam DO [address] [place] [address] PCP - General Internal Medicine 06/08/23 Philomena Leone MD [address] [place] [address] PCP - Hospice Attending 07/07/23 Evens Love MD [address] [place] [address] Neurosurgery 06/08/23 Janneth Pierre MD [address] [place] [address] Radiation Oncology 06/21/23 Lining Machine Operator Relationship Specialty Start Date End Date Edna Pulliam DO [address] [place] [address] PCP - General Internal Medicine 06/08/23 Philomena Leone MD [address] [place] [address] PCP - Hospice Attending 07/07/23 Evens Love MD [address] [place] [address] [place] [address] Neurosurgery 06/08/23 Janneth Pierre MD [address] [place] [address] Radiation Oncology 06/21/23 Lining Machine Operator Relationship Specialty Start Date End Date Edna Pulliam DO [address] [place] [address] PCP - General Internal Medicine 06/08/23 Philomena Leone MD [address] [place], [place] [address] PCP - Hospice Attending 07/07/23 Evens Love MD [address] [place] [address] Neurosurgery 06/08/23 Janneth Pierre MD [address] [place], [place] [address] Radiation Oncology 06/21/23 Lining Machine Operator Relationship Specialty Start Date End Date Edna Pulliam DO [address] [place] [address] PCP - General Internal Medicine 06/08/23 Philomena Leone MD [address] [place] [address] PCP - Hospice Attending 07/07/23 Evens Love MD [address] [facility] [place] [address] Neurosurgery 06/08/23 Janneth Pierre MD [address] [place] [address] Radiation Oncology 06/21/23 Lining Machine Operator Relationship Specialty Start Date End Date Edna Pulliam [address] [place] [address] PCP - General Internal Medicine 06/08/23 Philomena Leone MD [address] [place] [address] PCP - Hospice Attending 07/07/23 Evens Love MD [address] [facility] [place] [address] Neurosurgery 06/08/23 Janneth Pierre MD [address] [place] [address] Radiation Oncology 06/21/23 Lining Machine Operator Relationship Specialty Start Date End Date Edna Pulliam DO [address] [place] [address] PCP - General Internal Medicine 06/08/23 Philomena Leone MD [address] [place] [address] PCP - Hospice Attending 07/07/23 Evens Love MD [address] [place] [address] Neurosurgery 06/08/23 Janneth iPerre MD [address] [place] [address] Radiation Oncology 06/21/23 Lining Machine Operator Relationship Specialty Start Date End Date Edna Pulliam DO [address] [place] [address] PCP - General Internal Medicine 06/08/23 Philomena Leone MD [address] [place] [address] PCP - Hospice Attending 07/07/23 Evens Love MD [address] [place] [address] Neurosurgery 06/08/23 Janneth Pierre MD [address] [place] [address] Radiation Oncology 06/21/23 Lining Machine Operator Relationship Specialty Start Date End Date MarelyEdna parmar ColstripDO [address] [place] [address] PCP - General Internal Medicine 06/08/23 Philomena Leone MD [address] [place] [address] PCP - Hospice Attending 07/07/23 07/15/23 Evens Love MD [address] [place] [address] Neurosurgery 06/08/23 Janneth Pierre MD [address] [place] [address] Radiation Oncology 06/21/23 Trenton Jaquez DO [address] [place] [address] Physician Hematology/Oncology 07/15/23 Laquita Engel RN Specialty Parts Manager Oncology 07/15/23 Lining Machine Operator Relationship Specialty Start Date End Date Светланаeb Edna DO [place] [address] [facility] [place] [address] PCP - General Internal Medicine 06/08/23 Evens Love MD [address] [place] [address] Neurosurgery 06/08/23 Janneth Pierre MD [address] [place] [address] Radiation Oncology 06/21/23 Trenton Jaquez DO [address] [place], [place] [address] Physician Hematology/Oncology 07/15/23 Laquita Engel RN Specialty Parts Manager Oncology 07/15/23 Inactive Administered Medications - up to 3 most recent administrations Administered Medications (un recognized section and content) FOR RECORDS PERTAINING TO PATIENTS WHO ARE OR HAVE BEEN ENROLLED IN A CHEMICAL DEPENDENCY/SUBSTANCEABUSE PROGRAM, SOME INFORMATION MAY BE OMITTED. This clinical summary was aggregated from multiple sources. Caution should be exercised in using it in the provision of clinical care. This summary normalizes information from multiple sources, and as a consequence, information in this document may materially change the coding, format and clinical context of patient data. In addition, data may be omitted in some cases. CLINICAL DECISIONS SHOULD BE BASED ON THE PRIMARY CLINICAL RECORDS. [employer] provides no warranty or guarantee of the accuracy or completeness of information in this document.
[2023-07-22 00:41] VITALS: BP 144/84; PULSE 99; RESP 18; TEMP 36.4; O2SAT 99
--- NOTE | 2023-07-22 01:04 | HP.PCM.HOS_ITS ---
[facility] - General General Date of Admission: 07/22/23 Date of Service: 07/22/23 Chief Complaint: Worsening Metastatic Lung Cancer with FTT. HPI Narrative TYREL SCHWARTZ, is a chronically ill and debilitated 73 M with a past medical history of chronic tobacco abuse with subsequent metastatic lung cancer to brain and bone; previously on palliative radiation and hospice - but with hospice recently revoked and patient having been started on immunotherapy by Dr. Jaquez of the oncology service who was directly admitted to [facility] from [facility] ER after he was noted to have worsening metastatic lung cancer; with increasing spread to the brain in spite of being started on immunotherapy with his family making him a DNR CC CODE STATUS prior to transfer. Mr. Louie is not a reliable historian at this time so information was gathered from chart, medical staff and computer. According to the records patient was confused upon his arrival, alert and oriented x 1 with decreased mental status and patient complaining that he fell and hit his head and had neck pain but not have any other acute complaints. He appears very weak, emaciated, dehydrated, gaunt and cachectic with his family reporting that he has been precipitously declining over the past week with a CT scan at [facility] positive for destructive bony lesion that may be encroaching on thoracic spine but records showing no acute neurologic deficits consistent with a lesion in this area at this time. The ER physician at [facility] thought patient might benefit from palliative radiation treatments to the lesion invading his thoracic spine in addition to being reevaluated by his oncologist so hospice can hopefully be reinitiated. Patient was then admitted to the general medical floor for ongoing care for stay that is expected to be greater than 48 hours. FORMERLY [facility], [facility]–1983 Medical History Blood clot in abdominal vein Bone cancer Brain cancer Former smoker Liver cancer Osteoporosis Rheumatoid arthritis Home Medications apixaban 5 mg tablet (Eliquis) 5 mg PO Q12H 07/22/23 [History Last Taken Unknown ] baclofen 10 mg tablet 10 mg PO Q8H PRN hiccups 07/22/23 [History Last Taken Unknown] dexamethasone 4 mg tablet 4 mg PO BID 07/22/23 [History Last Taken Unknown] famotidine 10 mg tablet 10 mg PO DAILY 07/22/23 [History Last Taken Unknown] fentanyl 12 mcg/hr transdermal patch 25 mcg transdermal Q72H pain 07/22/23 [History Last Taken 07/21/23] gabapentin 400 mg capsule 400 mg PO TID pain 07/22/23 [History Last Taken Unknown] hydroxychloroquine 200 mg tablet 200 mg PO QODAY ra 07/22/23 [History Last Taken Unknown] lansoprazole 15 mg capsule,delayed release 15 mg PO Q12H 07/22/23 [History Last Taken Unknown] lorazepam 0.5 mg tablet 0.5 mg PO BID 07/22/23 [History Last Taken Unknown] lorazepam 1 mg tablet 1 mg PO Q4H PRN anxiety 07/22/23 [History Last Taken Unknown] oxycodone 20 mg tablet 20 mg PO Q4H pain 07/22/23 [History Last Taken Unknown] sennosides 8.6 mg tablet (senna) 8.6 mg PO BID 07/22/23 [History Last Taken Unknown] Allergy/AdvReac Type Severity Reaction Status Date / Time No Known Allergies Allergy Verified 07/22/23 01:11 Social History Smoking Status: Former smoker ROS ROS Narrative Patient is lethargic and confused and therefore cannot complete a review of systems at this time. Review of Systems ROS Unobtainable: due to encephalopathy Vital Signs Vital Signs Vital Signs: 07/22/23 00:41 Temperature 97.6 F L Temperature Source Temporal Pulse Rate 99 Respiratory Rate 18 Blood Pressure 144/84 H Blood Pressure Mean 104 Blood Pressure Source Monitor Blood Pressure Position Semi-Fowlers Blood Pressure Location Left Arm Pulse Ox 99 Oxygen Delivery Method Room Air Physical Exam Const alert Constitutional Narrative: Patient is alert and oriented x 1 but confused and appears gaunt, cachectic and moribund. Orientation / Consciousness: confused, disoriented and lethargic HEENT normocephalic, head/scalp atraumatic and hearing grossly normal bilaterally HEENT Narrative: Mucous membranes dry. Eyes PERRL and EOMs intact bilaterally Neck no lymphadenopathy and supple Resp Resp Narrative: Diminished breath sounds throughout. Cardio regular rate and regular rhythm GI normal to inspection, nondistended, normoactive bowel sounds, soft to palpation, non-tender and non-distended Extremity normal to inspection and full ROM Skin Skin Narrative: Patient has no evidence of rash at this time. Neuro CN's II-XII intact bilaterally and moves all extremities Sensorium / Orientation: awake, alert and oriented to person Speech: speech normal Psych Mood & Affect: depressed Results Medical Records Data Attestation: I reviewed the patient's medical records Lab / Micro Data Attestation: I reviewed the patient's lab results. 07/22/23 06:25 07/22/23 06:25 Labs: White blood cell count 8.8, hemoglobin 13.6, platelet count 189, sodium 136, potassium 4.5, chloride 101, CO2 30, BUN 21, creatinine 0.68, glucose 145 Assessment & Plan Assessment/Plan (1) Metastatic lung cancer (metastasis from lung to other site): QUALIFIERS: Laterality: unspecified laterality Qualified Code(s): C34.90 - Malignant neoplasm of unspecified part of unspecified bronchus or lung PLAN: Plan 1. Worsening metastatic lung cancer to brain and bone and now invading thoracic spine; previously on palliative radiation and hospice which was temporarily revoked to allow for trial of immunotherapy - Admit to general medical floor and continue supportive palliative care. Give pain and anxiety medications as per the palliative care order set. Finally, we will consult Dr. Jaquez from oncology to see his patient on rounds in the a.m. for possible palliative radiation to his thoracic spine mass with help appreciated in advance. 2. DNR CC CODE STATUS - Noted. This patient has a grave prognosis and will likely not survive much longer. 3. History of chronic tobacco abuse; with subsequent metastatic lung cancer - Noted. 4. DVT prophylaxis - Patient is already on Eliquis which will be continued. Total time: Approximately 55 minutes. Charges/Coding Visit Charges Inpatient E&M: 84697 Init Hosp L2
[2023-07-22 01:09] VITALS: BMI 20.5
--- OUTSIDE RECORDS SUMMARY | 2023-07-22 01:35 | XMS RPT_ITS | CCD ---
Author Name Unknown Address [address] [place] [address] Organization [facility] Care Team Providers Care Wiener Packer Name Role Phone Unavailable Primary Care Provider Unavailabl e Shasha QURESHI [facility] Primary Care Provide r Evens Love MD Unavailable Philomena Leone MD Unavailable Ignacio KEYES MD, Daesung Unavailable Janneth Pierre MD Unavailable NICA PIZANO Attending Unavailable NICA PIZANO Referring Unavailable RONA PETER Referring Unavailable TIRMONIA, [facility] Unavail able EVENS LOVE Referring Unavailable TIRMONIA, [facility] Primary Care Unavail able EVENS LOVE Referring Unavailable TIRMONIA, [facility] Care Unavail able TIRMONIA, [facility] Primary Care Unavail able SHREYAS LIM Referring Unavailable Philomena Leone MD Unavailable EVENS LOVE Attending Unavailable EVENS LOVE Referring Unavailable EVENS LOVE Attending Unavailable CLAIR CABALLERO Admitting Unavailab le CLAIR CABALLERO Attending Unavailab le CINDY-CLAIR PÉREZ Referring Unavailab le TIRMONIA, [facility] Primary Care Unavail able TRENTON JAQUEZ Referring Unavailable TIRMONIA, [facility] Unavail able EVENS LOVE Referring Unavailable TIRMONIA, [facility] Primary Care Unavail able Philomena Leone MD Unavailable Trenton Jaquez DO Unavailable Toro RN, Laquita Unavailable Unavailable TIRMONIA, [facility] Unavail able SELF Referring Unavailable MINNIE KUMAR Attending Unavailable TIRMONIA, [facility] Unavail able TIRMONIA, [facility] Unavail able TIRMONIA, [facility] Unavail able MASCTRENTON Fontaine Referring Unavailable TIRMONIA, [facility] Unavail able MASCITRENTON Referring Unavailable TIRMONIA, [facility] Unavail able MASCITRENTON Referring Unavailable TIRMONIA, [facility] Unavail able TIRMONIA, [facility] Unavail able JANNETH PIERRE Attending Unavailable JANNETH PIERRE Attending Unavailable MASCTRENTON Fontaine Referring Unavailable TIRMONIA, [facility] Unavail able TIRMONIA, [facility] Unavail able CLAIR CABALLERO Referring Unavailab le TIRMONIA, [facility] Unavail able TIRMONIA, [facility] Unavail able JANNETH PIERRE Attending Unavailable TIRMONIA, [facility] Unavail able EVENS LOVE Referring Unavailable TIRMONIA, [facility] Unavail able RONA PETER Attending Unavailable MASCITRENTON Attending Unavailable TIRMONIA, [facility] Unavail able RONA PETER Referring Unavailable TRENTON JAQUEZ Referring Unavailable TIRMONIA, [facility] Unavail able TIRMONIA, [facility] Unavail able MASCTRENTON Fontaine Attending Unavailable MASCTRENTON Fontaine Referring Unavailable TIRMONIA, [facility] Unavail able JANNETH PIERRE Attending Unavailable TIRMONIA, [facility] Unavail able TIRMONIA, [facility] Unavail able MASCTRENTON Fontaine Attending Unavailable TIRMONIA, [facility] Unavail able JANNETH PIERRE Attending Unavailable TIRMONIA, [facility] Unavail able TIRMONIA, [facility] Unavail able TIRMONIA, [facility] Unavail able JANNETH PIERRE Attending Unavailable TIRMONIA, [facility] Unavail able TIRMONIA, [facility] Unavail able JANNETH PIERRE Attending Unavailable Medications Current Medications Medication Drug Class(es) [...] neoplasm, unspecified site (HCC)] Onset: 07-03-2023 Chronic Secondary malignancies (1 source) Secondary malignant neoplasm of bone; Translations: [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)] Onset: 07-14-2023 Chronic Secondary malignancies (1 source) Secondary malignant neoplasm of liver and intrahepatic bile duct; Translations: [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)] Onset: 07-14-2023 Chronic Spondylosis; intervertebral disc disorders; other back problems (20 sources) Chronic low back pain; Translations: [Chronic midline low back pain] Onset: 05-26-2023 06-08-2023 Episodic Thyroid disorders (2 sources) Acquired hypothyroidism; Translations: [Hypothyroidism, unspecified] Onset: 07-14-2023 07-14-2023 Chronic Unclassified (1 source) Acute cough; Translations: [Acute cough] Onset: 04-26-2023 Unclassified (2 sources) Low back pain, unspecified back pain laterality, unspecified chronicity, unspecified whether sciatica present; Translations: [Low back pain, unspecified back pain laterality, unspecified chronicity, unspecified whether sciatica present] Onset: 05-26-2023 Unclassified (1 source) Chemotherapy Treatment Onset: 07-14-2023 Results Test Name Value Interpretation Reference Range Facil ity Vital Signs Date Time Vital Sign Value Performing Clinician Frank mei 07-14-2023 13:36-0500 Body temperature 98.49 [degF] Treatment Wstr Work Phone: [facility] 07-14-2023 13:36-0500 Diastolic blood pressure 64 mm[Hg] Treatment Wstr Work Phone: [facility] 07-14-2023 13:36-0500 Heart rate 77 /min Treatment Wstr Work Phone: [facility] 07-14-2023 13:36-0500 Respiratory rate 16 /min Treatment Wstr Work Phone: [facility] 07-14-2023 13:36-0500 SaO2% (BldA) [Mass fraction] 98 % Treatment Wstr Work Phone: [facility] 07-14-2023 13:36-0500 Systolic blood pressure 99 mm[Hg] Treatment Wstr Work Phone: [facility] 07-14-2023 09:10-0500 Body temperature 99 [degF] Trenton Masci DO Work Phone: [facility] 07-14-2023 09:10-0500 Body weight 63.96 kg Trenton Masci DO Work Phone: [facility] 07-14-2023 09:10-0500 Diastolic blood pressure 69 mm[Hg] Trenton Masci DO Work Phone: [facility] 07-14-2023 09:10-0500 Heart rate 81 /min Trenton Masci DO Work Phone: [facility] 07-14-2023 09:10-0500 Respiratory rate 12 /min Trenton Masci DO Work Phone: [facility] 07-14-2023 09:10-0500 SaO2% (BldA) [Mass fraction] 96 % Trenton Masci DO Work Phone: [facility] 07-14-2023 09:10-0500 Systolic blood pressure 106 mm[Hg] Trenton Masci DO Work Phone: [facility] 07-12-2023 17:01-0500 Body temperature 99.1 [degF] Lenora Rodriguez RN Work Phone: [facility] 07-12-2023 17:01-0500 Diastolic blood pressure 60 mm[Hg] Lenora Rodriguez RN Work Phone: [facility] 07-12-2023 17:01-0500 Heart rate 78 /min Taunia Hardgrove RN Work Phone: [facility] 07-12-2023 17:01-0500 Respiratory rate 16 /min Taunia Hardgrove RN Work Phone: [facility] 07-12-2023 17:01-0500 Systolic blood pressure 92 mm[Hg] Taunia Hardgrove RN Work Phone: [facility] 07-08-2023 16:41-0500 Body temperature 97.3 [degF] Taunia Hardgrove RN Work Phone: [facility] 07-08-2023 16:41-0500 Diastolic blood pressure 78 mm[Hg] Taunia Hardgrove RN Work Phone: [facility] 07-08-2023 16:41-0500 Heart rate 78 /min Taunia Hardgrove RN Work Phone: [facility] 07-08-2023 16:41-0500 Respiratory rate 16 /min Taunia Hardgrove RN Work Phone: [facility] 07-08-2023 16:41-0500 Systolic blood pressure 122 mm[Hg] Taunia Hardgrove RN Work Phone: [facility] 07-07-2023 14:29-0500 Body height 170.2 cm Gurvinder Schwartz RN Work Phone: [facility] 07-07-2023 14:29-0500 Body temperature 97.39 [degF] Gurvinder Schwartz RN Work Phone: [facility] 07-07-2023 14:29-0500 Body weight 63.5 kg Gurvinder Schwartz RN Work Phone: [facility] 07-07-2023 14:29-0500 Diastolic blood pressure 72 mm[Hg] Gurvinder Schwartz RN Work Phone: [facility] 07-07-2023 14:29-0500 Heart rate 54 /min Gurvinder Schwartz RN Work Phone: [facility] 07-07-2023 14:29-0500 Respiratory rate 18 /min Gurvinder Schwartz RN Work Phone: [facility] 07-07-2023 14:29-0500 Systolic blood pressure 114 mm[Hg] Gurvinder Schwartz RN Work Phone: [facility] 07-05-2023 11:58-0500 Body temperature 98.4 [degF] Trenton Masci DO Work Phone: [facility] 07-05-2023 11:58-0500 Body weight 63.5 kg Trenton Masci DO Work Phone: [facility] 07-05-2023 11:58-0500 Diastolic blood pressure 61 mm[Hg] Trenton Masci DO Work Phone: [facility] 07-05-2023 11:58-0500 Heart rate 67 /min Trenton Masci DO Work Phone: [facility] 07-05-2023 11:58-0500 Respiratory rate 16 /min Trenton Masci DO Work Phone: [facility] 07-05-2023 11:58-0500 SaO2% (BldA) [Mass fraction] 96 % Trenton Masci DO Work Phone: [facility] 07-05-2023 11:58-0500 Systolic blood pressure 99 mm[Hg] Trenton Masci DO Work Phone: [facility] 06-22-2023 13:48-0500 Body temperature 98.01 [degF] Janneth Pierre MD, MD Work Phone: [facility] 06-22-2023 13:48-0500 Body weight 70.99 kg Janneth Pierre MD, MD Work Phone: [facility] 06-22-2023 13:48-0500 Diastolic blood pressure 74 mm[Hg] Janneth Pierre MD, MD Work Phone: [facility] 06-22-2023 13:48-0500 Heart rate 71 /min Janneth Pierre MD, MD Work Phone: [facility] 06-22-2023 13:48-0500 SaO2% (BldA) [Mass fraction] 96 % Janneth Pierre MD, MD Work Phone: [facility] 06-22-2023 13:48-0500 Systolic blood pressure 120 mm[Hg] Janneth Pierre MD, MD Work Phone: [facility] 06-17-2023 14:44-0500 Body height 173.5 cm Trenton Masci DO Work Phone: [facility] 06-17-2023 14:44-0500 Body temperature 98.71 [degF] Trenton Masci DO Work Phone: [facility] 06-17-2023 14:44-0500 Body weight 71.44 kg Trenton Masci DO Work Phone: [facility] 06-17-2023 14:44-0500 Diastolic blood pressure 69 mm[Hg] Trenton Masci DO Work Phone: [facility] 06-17-2023 14:44-0500 Heart rate 81 /min Trenton Masci DO Work Phone: [facility] 06-17-2023 14:44-0500 SaO2% (BldA) [Mass fraction] 97 % Trenton Masci DO Work Phone: [facility] 06-17-2023 14:44-0500 Systolic blood pressure 114 mm[Hg] Trenton Masci DO Work Phone: [facility] 06-16-2023 03:00-0500 Body temperature 98.2 [degF] Lea Chairez RN Work Phone: [facility] 06-16-2023 03:00-0500 Diastolic blood pressure 68 mm[Hg] Lea Chairez RN Work Phone: [facility] 06-16-2023 03:00-0500 Respiratory rate 18 /min Lea Chairez RN Work Phone: [facility] 06-16-2023 03:00-0500 Systolic blood pressure 128 mm[Hg] Lea Chairez RN Work Phone: [facility] 04-26-2023 12:46-0500 Body temperature 98.4 [degF] Nica Pizano SPOT SPRAYER.BUSINESS PROGRAMMER Work Phone: [facility] 04-26-2023 12:46-0500 Diastolic blood pressure 83 mm[Hg] Nica Pizano SPOT SPRAYER.BUSINESS PROGRAMMER Work Phone: [facility] 04-26-2023 12:46-0500 Heart rate 80 /min Nica Pizano SPOT SPRAYER.BUSINESS PROGRAMMER Work Phone: [facility] 04-26-2023 12:46-0500 Respiratory rate 20 /min Nica Pizano SPOT SPRAYER.BUSINESS PROGRAMMER Work Phone: [facility] 04-26-2023 12:46-0500 SaO2% (BldA) [Mass fraction] 97 % Nica Pizano SPOT SPRAYER.BUSINESS PROGRAMMER Work Phone: [facility] 04-26-2023 12:46-0500 Systolic blood pressure 125 mm[Hg] Nica Pizano SPOT SPRAYER.BUSINESS PROGRAMMER Work Phone: [facility] Encounters Encounter Date Encounter Type Care Provider Facility Start: 07-17-2023 Home visit Lety Wilkins RN Work Phone: HOME [facility] Plan of Treatment Date Care Activity Detail Author Start: 07-14-2026 Diabetes Screening Diabetes Screenin g [facility] Start: 07-03-2026 Diabetes Screening Diabetes Screenin g [facility] Start: 06-08-2026 Diabetes Screening Diabetes Screenin g [facility] Start: 07-14-2023 End: 10-13-2023 Cortisol [Mass/volume] in Serum or Plasma [facility] Work Phone: Immunizations Immunization Date Immunization Notes Care Provider Jaja randle 06-08-2023 COVID-19 vaccine, ag e 12+ yr, season (oohilove) Wendy Hammond RN [facility] 06-08-2023 influenza (HD-IIV4) vaccine, age 65+ yr, high dose, quadrivalent, PF (FLUZONE HIGH-DOSE) Wendy Hammond RN [facility] 03-22-2022 Influenza, injectabl e, Madin Mary Canine Kidney, preservative free, quadrivalent Wendy Hammond RN [facility] Work Phone: 03-22-2022 influenza virus vaccine, unspecified formulation Nica Jerica [facility] Work Phone: [facility] 03-10-2021 influenza, seasonal, injectable Wendy Hammond RN [facility] Work Phone: 03-28-2020 influenza (HD-IIV4) vaccine, age 65+ yr, high dose, quadrivalent, PF (FLUZONE HIGH-DOSE) Wendy Hammond RN [facility] Work Phone: Payers Date Payer Category Payer Medicare [id number] 2020 Medicare [id number] 2020 Private Health Insurance [id number] 2007 Medicare MEDICARE MEDICAR E A AND B [id number] 2007-Present [phone] [address] [address] [place] [address] Medicare [id number] 2007 Medicare [id number] Social History Date Type Detail Facility Tobacco smoking stat [facility] Tobacco smoking consumption unknown [facility] Start: 1950 Sex Assigned At Not on file [facility] Start: 04-26-2023 Tobacco smoking stat [facility] Never smoked tobacco [facility] Start: 04-26-2023 End: 06-08-2023 Tobacco use and exposure Smokeless tobacco non-user [facility] Start: 04-26-2023 End: 07-14-2023 Alcohol intake Current drinker of alcohol (finding) [facility] Start: 04-26-2023 End: 05-26-2023 History of Social function [facility] Start: 04-26-2023 End: 05-26-2023 Tobacco use panel [facility] Adult Depression Screening Assessment 0 [facility] Start: 06-08-2023 Tobacco smoking stat us NHIS Ex-smoker [facility] Start: 05-23-1970 End: 05-23-1995 History of tobacco use Current smoker [facility] Start: 05-23-1970 End: 05-23-1995 History of tobacco use Cigarette Smoker [facility] Start: 06-08-2023 Sexual orientation Heterosexual (marychuy leavitt) [facility] Start: 06-17-2023 Alcohol Comment occ [facility] Clinical Notes 07-14-2022 to 07-15-2023 Telephone Encounter - Laquita Engel RN - 07/15/2023 9:50 AM ESTTelephone Encounter - [facility] AssistantRaissa - 07/14/2023 4:09 PM ESTLaquita Engel RN - 07/14/2023 2:50 PM EST Note [...] Laquita Engel RN documented in this encounter [facility] 07-14-2023 Miscellaneous Notes Called and informed patients [...] . Rc Silva documented in this encounter [facility] 07-14-2023 Nurse Note This visit was completed [...] Laquita Engel RN documented in this encounter [facility] 07-14-2023 Note HNO ID: [id number] Author: TRENTON JAQUEZ DO Service: ? Author Type: Physician Type: Progress Notes Filed: 07/14/2023 15:40 Note Text: Oncologic problem(s): 1) Metastatic poorly [...] per week Comment: occ Drug use: Never steel finisher. Retired early due to RA. Family History Problem Relation Age of Onset (more content not included)... [facility] 07-14-2023 Miscellaneous Notes Addended by: TRENTON JAQUEZ on: 07/14/2023 10:09 AM Modules accepted: Orders Addended by: PAOLA BEAR on: 07/14/2023 10:07 AM Modules accepted: Orders documented in this encounter [facility] 07-14-2023 Miscellaneous Notes Met with patient and introduced myself. Patient was given a My Journey binder with chemocare information, immunotherapy side effects sheet, immunotherapy wallet care, office contact information, and thermometer. Patient aware this nurse will review information on scheduled appointment date. Laquita Doup, RN documented in this encounter [facility] 07-14-2023 Miscellaneous Notes Second attempt to phone pt/family to follow up admission notes that they requested PC services. No answer, left VM documented in this encounter [facility] 07-14-2023 History of Present illness Narrative Oncologic [...] per week Comment: occ Drug use: Never steel finisher. Retired early due to RA. Family [...] edema. SKIN: No jaundice or rash. NEUROLOGIC: spaghetti press helper II-XII are grossly intact. No focal motor [...] history significant for rheumatoid arthritis and a 28-pgls-myev history of smoking having quit in 1995. [...] Trenton Jaquez DO documented in this encounter [facility] 07-14-2023 Miscellaneous Notes Visit made to have patient and spouse sign revocation paperwork ahead of Oncology visit to pursue treatment documented in this encounter [facility] 07-13-2023 Miscellaneous Notes Scheduled as directed. Chani Rodgers I spoke with Dorota, an hygiene assistant at Hospice. As long as the [...] called and spoke with the director of materials, Masha, and she will pass along the message to the civil manager and have them contact this nurse with an update. Paola Bear LPN Pall med nurse forwarded to [facility] team for review and discussion. Dionna Yeboah RN Basket Turner I spoke with his just now about [...] Trenton Jaquez DO documented in this encounter [facility] 07-12-2023 Miscellaneous Notes Routine visit completed. Pt [...] Reinforced hospice availablity. documented in this encounter [facility] 07-12-2023 Miscellaneous Notes Patient was readmitted to the care of [facility]osp[facility]. List membership updated. Dionna Yeboah RNCC, PN Basket Turner documented in this encounter [facility] 07-10-2023 Miscellaneous Notes Received call from triage [...] Reinforced hospice availabiltiy. documented in this encounter [facility] 07-08-2023 Miscellaneous Notes Routine visit completed. Pt [...] awaiting delivery of walker. Call placed to [facility] who state order was actually placed as pickup not delivery but they would correct and deliver tonight. Reinorced hospcie availabiltiy. documented in this encounter [facility] 07-08-2023 Miscellaneous Notes Request for PC services received via admission email. Left VM at both phone numbers offering support and a visit. Call back invited. documented in this encounter [facility] 07-06-2023 Note Education (RADTWS) GALINDO FITZGERALD ([id number]) 1950 M Date Time Provider Department 07/06/23 [...] Encounter Status:Closed by ALISSA MON on 07/06/23 [facility] 07-06-2023 Note HNO ID: [id number] Author: JANNETH PIERRE MD Service: Radiation Oncology Author Type: Physician Type: Progress Notes Filed: 07/07/2023 14:41 Note Text: GALINDO FITZGERALD [id number] : 1950 07/06/2023 [facility] Department of Radiation Oncology RADIATION ONCOLOGY - COMPLETION NOTE DATE OF SIMULATION: 06/22/23, 06/29/23 DATES OF TREATMENT: 06/23/23 - 07/06/23 UNIT: [facility] AREA TREATED: Brain, Right hip DISEASE: Numerous [...] M.D. / 42:41 PM Electronically Signed cc: Osei Pulliam [address] [place] [address] Trenton Jaquez [address] [facility] [address] [facility] [address] [facility] 07-06-2023 Nurse Note Written discharge instructions given and reviewed with patient. Patient verbalizes understanding. Encouraged to call with any questions or concerns. Instruction for 4 week phone call follow up appointment given by Dr. Pierre. Pt plans to enter hospice tomorrow. documented in this encounter [facility] 07-06-2023 History of Present illness Narrative LANA GALINDO A. [id number] : 1950 07/06/2023 [facility] Department of Radiation Oncology RADIATION ONCOLOGY - [...] M.D. / 42:41 PM Electronically Signed cc: Osie [address] [place] [address] Trenton Jaquez [address] [facility] [address] documented in this encounter [facility] 07-05-2023 Note HNO ID: [id number] Author: JANNETH PIERRE MD Service: ? Author [...] radiation treatment as planned. Janneth Pierre MD [facility] 07-05-2023 Note HNO ID: [id number] Author: TRENTON JAQUEZ, DO Service: ? Author [...] couch/chair. He was in the ED at [facility] since last seen. Complaining of abdominal pain. Seems like it was unrelated to his recent biopsy. His vulgslvb-wc-wqu adds that his feet were getting blue. [...] use: Yes Alcohol/week: (more content not included)... [facility] 07-05-2023 History of Present illness Narrative [...] Janneth Pierre MD documented in this encounter [facility] 07-05-2023 Nurse Note Radiation Therapy - Nursing Note (OTV) PATIENT NAME: Galindo Fitzgerald PATIENT July 05, 2023 [facility] FACILITY/LOCATION: [facility] NURSING NOTE TYPE: CRITICAL CARE UNIT NURSE Subjective Data see pain assessment Additional Data Do you want to see a City Designer? No Status: Patient is male Stress Scale: On a scale of 0 to 10, what number best describes how much distress you have experienced in the past week?(0 being no distress and 10 being extreme distress) 8 Social work notified: Pt denied need to see oncology social worker at this time. Nursing Assessment Fatigue: moderate; [...] date for vitals. documented in this encounter [facility] 07-05-2023 History of Present illness Narrative Oncologic [...] couch/chair. He was in the ED at [facility] since last seen. Complaining of abdominal pain. Seems like it was unrelated to his recent biopsy. His fzrsvllx-sv-kqh adds that his feet were getting blue. [...] per week Comment: occ Drug use: Never steel finisher. Retired early due to RA. Family [...] edema. SKIN: No jaundice or rash. NEUROLOGIC: spaghetti press helper II-XII are grossly intact. No focal motor [...] history significant for rheumatoid arthritis and a 00-ywgp-pmsm history of smoking having quit in 1995. [...] which included preparing to see the patient, tcoz-na-vnhy patient care, completing clinical documentation, obtaining and/or reviewing separately obtained history, performing a medically appropriate examination, counseling and educating the patient/family/caregiver, ordering medications, tests, or procedures, communicating with other HCPs (not separately reported), and communicating results to the patient/family/caregiver. Trenton Jaquez DO documented in this encounter [facility] 07-05-2023 Miscellaneous Notes Palliative Medicine Care Coordination Follow up Phone Call Patient identified by name and : Yes Spoke to: , Rach Nurse calling to follow up on [...] having contact numbers for the office and railway traction line worker. [place] F[place] Basket Turner Please send Senna Rx to pharmacy Thank you, CHESTER Fitch, [facility] Basket Turner Collaborated with Minnie Kumar: Yes, 8.6 mg [...] Debbie Sierra RN Care Coordination Triage Note [facility] Situation: Patient reports Bowel symptoms Background: Disease, [...] Scripts to be sent to [facility] in [facility]. Debbie Sierra RN July 04, 2023 1:42 PM Galindo Fitzgerald is calling Minnie Kumar APRN.CNP today regarding Symptom Management Reporting patient is still constipated, per CT scan done yesterday. Requesting call back from nurse to advise. Patient has been identified by name and birthdate. Requesting response back: call on cell [phone] (cell) Kalie Eamon July 04, 2023 documented in this encounter [facility] 07-05-2023 Miscellaneous Notes Patient phones requesting refills as follows: Patient confirmed via my chart that he is taking 1200 mg in 24 hours. (Was using 100 mg capsules), will notify patient to change to 400 mg capsule strength Last pall med visit on 06/22/23 Future appt 07/26/23 Requested Prescriptions Pending Prescriptions Disp Refills gabapentin (NEURONTIN) 400 mg capsule 90 capsule 0 Sig: Take 1 capsule by mouth three times a day for 30 days. Please review and advise. Dionna Yeboah RN documented in this encounter [facility] 07-04-2023 Miscellaneous Notes Patient is scheduled for [...] on the CT table. Patient went to [facility] ER last night due to numb feet, breathing issues/chest pain. Patient had been discharged. documented in this encounter [facility] 06-29-2023 Note HNO ID: [id number] Author: JANNETH PIERRE MD Service: Radiation Oncology Author Type: Physician Type: Progress Notes Filed: 06/30/2023 08:52 Note Text: GALINDO FITZGERALD [id number] 06/29/2023 [facility] Department of Radiation Oncology [facility] RADIATION ONCOLOGY SIMULATION NOTE DATE OF SIMULATION: [...] if applicable. Electronically Signed Janneth Pierre M.D./cinda :52 AM [facility] 06-29-2023 Note HNO ID: [id number] Author: JANNETH PIERRE MD Service: Radiation Oncology Author Type: Physician Type: Progress Notes Filed: 06/30/2023 08:51 Note Text: GALINDO FITZGERALD [id number] 06/29/2023 [facility] Department of Radiation Oncology Treatment Planning Note [...] and DVH. Electronically Signed Janneth Pierre M.D. :51 AM [facility] 06-29-2023 Miscellaneous Notes Palliative Medicine Care [...] having contact numbers for the office and railway traction line worker. documented in this encounter [facility] 06-29-2023 Miscellaneous Notes Follow up call in [...] Minnie Kumar CNP Care Coordination Triage Note [facility] Situation: reports pain, has not been controlled over the weekend. Background: Visit 2/ saw provider. Med adjustments made. Oncall this [...] 48 hours. Return call to Rach at [phone] documented in this encounter [facility] 06-29-2023 History of Present illness Narrative GALINDO FITZGERALD [id number] 06/29/2023 [facility] Department of Radiation Oncology [facility] RADIATION ONCOLOGY SIMULATION NOTE DATE OF SIMULATION: [...] M.D./cinda 48:52 AM documented in this encounter [facility] 06-29-2023 History of Present illness Narrative GALINDO FITZGERALD [id number] 06/29/2023 [facility] Department of Radiation Oncology Treatment Planning Note [...] M.D. 48:51 AM documented in this encounter [facility] 06-28-2023 Note HNO ID: [id number] Author: JANNETH PIERRE MD Service: ? Author [...] that other personnel such as radiation therapists, client onboarding analyst, and physicists will participate in planning and delivery of radiation treatment. Permanent tattoo echols will be placed to aid with positioning for daily treatment and the patient consented. Patient will have a simulation procedure tomorrow. Janneth Pierre MD [facility] 06-28-2023 Note HNO ID: [id number] Author: LESLIE SAHA RN Service: ? Author Type: Registered Nurse Type: Progress Notes Filed: 06/28/2023 15:05 Note Text: Radiation Therapy - Nursing Note (OTV) PATIENT NAME: Galindo Fitzgerald PATIENT June 28, 2023 [facility] FACILITY/LOCATION: [facility] NURSING NOTE TYPE: HEAD AND NECK Subjective Data Pain in Rt Hip- rated on scale 1-10 as a 10, radiate to knee with use. Rt arm pit pain- rated as 10 when used. Constant. Taking Oxycontin but off today for liver biopsy. Took at lunch. Has Fentanyl patch on. Additional Data Do you want to see a City Designer? No Status: Patient is male Stress Scale: [...] areas noted. SIGNED by: Leslie Saha RN [facility] 06-28-2023 Miscellaneous Notes Collaborated with Minnie Kumar Try xanax 0.25 mg BID PRN Minnie Kumar BUSINESS PROGRAMMER Left message with spouse to see if they would be willing to try alternative medication for anxiety Natividad Sierra RNCC Palliative Medicine Phone: [phone] From: bttn Clinical Pharmacy Review Team Regarding: An Update on Your Request Fax received that there was a dismissal of drug coverage Call to follow up, PA was not approved because preferred drugs not tried. Insurance prefers following drugs first: Buspirone, Clonazepam, Alprazolam Diazepam Please advise Prior Authorization Documentation Prior authorization requested for: MEDICATION ativan Submitted via Cover My Meds/Kim Samuel Fitzgerald (Kim: [id number]) Insurance Company Name: [employer] [facility] Name: [facility] Authorization approval #: x Dates of Approval: from x to x Patient Assistance Needed: No Time Spent 30 Debbie Sierra RN June 27, 2023 documented in this encounter [facility] 06-25-2023 Miscellaneous Notes I received a page for the patient and spoke on the phone with his , Rach. Briefly, he is a 73-year-old male with widely metastatic cancer (pending confirmation of primary site), currently on a course of WBRT and followed by [facility] (Minnie Kumar CNP) for pain management. [...] for 15 days. Redd Miranda MD, FACP, [facility] Pager [phone] June 25, 2023 1:28 PM CC: [facility] Pall [facility] Minnie Kumar CNP documented in this encounter [facility] 06-22-2023 Note HNO ID: [id number] Author: JANNETH PIERRE MD Service: ? Author [...] NECK: Bilateral n (more content not included)... [facility] 06-22-2023 Note HNO ID: [id number] Author: JANNETH PIERRE MD Service: Radiation Oncology Author Type: Physician Type: Progress Notes Filed: 06/23/2023 08:06 Note Text: GALINDO FITZGERALD [id number] 06/22/2023 [facility] Department of Radiation Oncology [facility] RADIATION ONCOLOGY SIMULATION NOTE DATE OF SIMULATION: [...] if applicable. Electronically Signed Janneth Pierre M.D./cinda :06 AM [facility] 06-22-2023 Note HNO ID: [id number] Author: JANNETH PIERRE MD Service: Radiation Oncology Author Type: Physician Type: Progress Notes Filed: 06/23/2023 08:06 Note Text: GALINDO FITZGERALD [id number] 06/22/2023 [facility] Department of Radiation Oncology Treatment Planning Note [...] and DVH. Electronically Signed Janneth Pierre M.D. :06 AM [facility] 06-22-2023 Nurse Note Radiation Therapy - Nursing Note (Consult) PATIENT NAME: Galindo Fitzgerald PATIENT June 22, 2023 [facility] FACILITY/LOCATION: [facility] Chief Complaint: met cancer to right hip and leg Reason for visit: Consult. Referring physician: Internal provider Dr Jaquez Subjective Data: see pain assessment Additional Data Do you want to see a City Designer? No Are you interested in information about fertility? No Status: Patient is male Stress Scale: On a scale of 0 to 10, what number best describes how much distress you have experienced in the past week?(0 being no distress and 10 being extreme distress) 8 Social work notified: Pt denied need to see oncology social worker at this time. SIGNED by: Alissa Mon RN documented in this encounter [facility] 06-22-2023 History of Present illness Narrative Radiation [...] date: 1968 Quit date: 1995 Years since quittin. Smokeless tobacco: Never Vaping Use Vaping Use: [...] that other personnel such as radiation therapists, client onboarding analyst, and physicists will participate in planning and delivery of radiation treatment. Patient will have a simulation procedure today. Thank you very much for allowing us to participate in his care. Signed by: Janneth Pierre MD cc: Osei Pulliam [id number] [place] [address] Trenton Jaquez [address] [facility] [id number] documented in this encounter [facility] 06-22-2023 Note HNO ID: [id number] Author: MINNIE KUMAR APRN.BUSINESS PROGRAMMER Service: ? Author Type: Nurse Practitioner Type: Progress Notes Filed: 06/30/2023 21:11 Note Text: PALLIATIVE MEDICINE AT HOME INITIAL CONSULT SERVICE DATE: 06/22/2023 Referring Physician: Trenton MONTANO DO Primary Physician: Osei Pulliam DO IDENTIFICATION AND INTRODUCTION: Galindo Fitzgerald [...] hiccups not helping. Severe back pain started Dec/Jan thought it was arthritis- then diagnosed with [...] Known Allergies FAM (more content not included)... [facility] 06-22-2023 History of Present illness Narrative PALLIATIVE MEDICINE AT HOME INITIAL CONSULT SERVICE DATE: 06/22/2023 Referring Physician: Trenton MONTANO DO Primary Physician: Osei Pulliam DO IDENTIFICATION AND INTRODUCTION: Galindo Fitzgerald [...] Arthritis Other REVIEW OF SYSTEMS: Modified ESAS ([place] Symptom Assessment Scale): Information Provided By: Patient [...] results found for: UQCANN , UQBNZL , ATI7FTZ , UQAMPH , UQMAMP , UQBUPRE , UQNORBUP , UQMTHD , UQEDDP , UQTRAM , UQDTRM , UQFNTL , UQNFTL , UQCODE , UQMORP , UQDCDN , UQHCOD , UQOXYC , UQHMOR , UQOXYM , UQCREA , UQPH , UQSPGR , UQOXID , UQSPQ OARRS checked?: Yes, no abberancy Naloxone offered?: Previously prescribed Prescribed Morphine Equivalent Daily Dose (MEDD): >120 MEDD, 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 Minnie Kumar APRN.CNP June 22, 2023 6:57 AM This note may have been partially generated using the SpamLion voice recognition system. While every effort was made to correct voice recognition errors, kindly be aware that some errors may occasionally occur. documented in this encounter [facility] 06-22-2023 History of Present illness Narrative GALINDO FITZGERALD [id number] 06/22/2023 [facility] Department of Radiation Oncology Treatment Planning Note [...] M.D. 48:06 AM documented in this encounter [facility] 06-20-2023 Note HNO ID: [id number] Author: KENNEDI MCDONALD RT(R) Service: Radiology Author [...] PATIENT PRESENTS WITH AN IMPLANTABLE OR ATTACHED BILLIARD PARLOR MANAGER: Yes Other Pain patch ALLERGIES: Reviewed and unchanged CONTRAST ALLERGY: NO. EXAM: MRI - CONTRAST TYPE: GROUP II PERIPHERAL IV DATA: Ambulatory: A peripheral IV was started in the Right antecubital site with a Angio cath: 22 gauge. RADIOLOGY DEPARTMENT: MR; Exam(s) Completed: Head: Routine Brain SIGNATURE: RT Juan(R) PATIENT NAME: Galindo Fitzgerald DATE: June 20, 2023 TIME: 1:22 PM [facility] 06-17-2023 Note HNO ID: [id number] Author: RICHIE VIVEROS RT(R) Service: Radiology Author [...] PATIENT PRESENTS WITH AN IMPLANTABLE OR ATTACHED BILLIARD PARLOR MANAGER: No RADIOLOGY DEPARTMENT: General X-ray: Exam(s) Completed: Pelvis X-Ray: Pelvis with Hip Right PERIPHERAL IV DATA: Not applicable SIGNED BY: RT Macie(R) June 17, 2023 4:06 PM [facility] 06-17-2023 Note HNO ID: [id number] Author: TERNTON JAQUEZ, DO Service: ? Author Type: Physician [...] after taking steroid (Medrol dose pack) around /--had dysarthria and confusion. Improved through the night. [...] per week Comment: occ Drug use: Never steel finisher. Retired early due to RA. Family Histo (more content not included)... [facility] 06-17-2023 History of Present illness Narrative [...] after taking steroid (Medrol dose pack) around 5--had dysarthria and confusion. Improved through the night. [...] per week Comment: occ Drug use: Never steel finisher. Retired early due to RA. Family [...] edema. SKIN: No jaundice or rash. NEUROLOGIC: spaghetti press helper II-XII are grossly intact. No focal motor weakness. Right patellar and Achilles reflex normal. ASSESSMENT/PLAN: (R91.8) Mass of lower lobe of right lung (primary encounter diagnosis (M89.9) Lytic bone lesion of right femur (K76.9) Liver lesion, left lobe (C79.9) Metastatic malignant neoplasm, unspecified site (HCC) Assessment: -The patient is a 73-year-old male with a past medical history significant for rheumatoid arthritis and a 08-hgsw-dhpm history of smoking having quit in 1995. [...] which included preparing to see the patient, arrs-aa-wgin patient care, completing clinical documentation, obtaining and/or reviewing separately obtained history, performing a medically appropriate examination, counseling and educating the patient/family/caregiver, ordering medications, tests, or procedures, independently interpreting results (not separately reported), and communicating results to the patient/family/caregiver. Trenton Jaquez DO documented in this encounter [facility] 06-17-2023 Miscellaneous Notes Palliative Medicine referral received on 06/13/2023. Epic reviewed and patient was admitted to Hospice on 06/15/2023. Pall Med referral cancelled. Dorota Rosario RN June 17, 2023 8:05 AM documented in this encounter [facility] 06-16-2023 Miscellaneous Notes After speaking with Mangement. [...] signed by patient documented in this encounter [facility] 06-16-2023 Miscellaneous Notes Met with and patient. [...] for call back. documented in this encounter [facility] 06-10-2023 Note HNO ID: [id number] Author: KARI VORA RT(R) Service: Radiology Author [...] Exam(s) Completed: Chest Abdomen Pelvis SIGNATURE: RT Abby(Shanta) PATIENT NAME: Galindo Fitzgerald DATE: June 10, 2023 TIME: 9:53 AM [facility] 06-09-2023 Note HNO ID: [id number] Author: MARTINA STANFORD RT(Shanta) Service: ? Author Type: Technologist Type: Progress [...] DATE: June 09, 2023 TIME: 8:49 AM [facility] 06-08-2023 Note HNO ID: [id number] Author: RONA PETER APRN.HARSHA Service: ? 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 Lived in [place], then [place], and now here [place] prefers if he has cancer that we send him to [facility] for care. They have a family member familiar with [facility] Chart review completed. No recent labs The [...] fevers. Specialists/Other Healthcare Providers: Patient Care Team: Osei Pulliam DO as PCP - General (Internal [...] Thought content norm (more content not included)... [facility] 06-07-2023 Note HNO ID: [id number] Author: EVENS LOVE MD Service: ? Author Type: Physician Type: Progress Notes Filed: 06/07/2023 14:54 Note Text: NEUROSURGERY FOLLOW UP OFFICE NOTE Evens Love MD [facility] Date of visit: June 07, 2023 Patient Name: Mr.Stephen Danna Fitzgerald Date of : 1950 Current Age: [age] year old Sex: male MRN/E# [id number] Last Office Visit: 05/27/2023 Chief Complaint: Patient [...] 4/5 4+/5 Re (more content not included)... [facility] 06-03-2023 Note HNO ID: [id number] Author: MAGUI WIGGINS RT(Shanta) Service: ? Author Type: Technologist Type: Progress [...] RT Hernan(R) June 03, 2023 3:07 PM [facility] 05-26-2023 Note HNO ID: [id number] Author: EVENS LOVE MD Service: ? Author Type: Physician Type: Progress Notes Filed: 05/26/2023 10:55 Note Text: NEUROSURGERY CONSULT NOTE Evens Love MD [facility] Date of visit: May 26, 2023 Patient Name: Mr.Stephen Danna Fitzgerald Date of : 1950 Current Age: [age] year old Sex: male MRN/E# [id number] Last Office Visit: Visit date not found [...] and updated as (more content not included)... [facility] 05-05-2023 Miscellaneous Notes Patient called back [...] soon as possible. documented in this encounter [facility] 04-26-2023 Note HNO ID: [id number] Author: Jose Brar RT(R) Service: ? Author [...] RT Flori(R) April 26, 2023 1:59 PM [facility] 04-26-2023 Note HNO ID: [id number] Author: Nica Pizano APRN.BUSINESS PROGRAMMER Service: ? Author Type: Nurse Practitioner Type: Progress Notes Filed: 04/26/2023 1:55 PM Note Text: Galnido Fitzgerald is a 73 year old male [...] pain continues to follow back up with retail assistant. Patient states he has an appointment in June. Instructed patient should he have any difficulty breathing, chest pain or shortness of breath he needs to go to the ER for further (more content not included)... [facility] 04-26-2023 Instructions Nica Pizano APRN.BUSINESS PROGRAMMER - 04/26/2023 1:48 PM EST Please take [...] or feel confused. documented in this encounter [facility] 04-26-2023 History of Present illness Narrative Galindo [...] pain continues to follow back up with retail assistant. Patient states he has an appointment in [...] . This note was partially generated using SpamLion voice recognition system, and there may be some incorrect words, spellings, and punctuation that were not noted in checking the note before saving. Nica Pizano APRN.CNP 04/26/23 1:49 PM documented in this encounter [facility] 07-14-2022 Note HNO ID: [id number] Author: Noemi Horvath RT(R) Service: Radiology Author Type: Technologist Type: Procedures [...] RT Maryann(R) July 14, 2022 2:14 PM [facility] 07-14-2022 Procedure note Radiology Service Progress Note [...] 2022 2:14 PM documented in this encounter [facility] Diagnosis Mass of lower lobe of [...] unspecified site (HCC) [facility] Diagnosis 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 Liver lesion Other specified disorders of liver [facility] Palliative care encounter- Primary Encounter for palliative care Liver lesion Other specified disorders of liver [facility] Neoplasm related pain (acute) (chronic)- Primary [facility] Diagnosis Cancer related pain- Primary Neoplasm related pain (acute) (chronic) Palliative care by specialist Mass of lower lobe of right lung Swelling, mass, or lump in chest Therapeutic opioid induced constipation Hiccups Hiccough Anxiety associated with cancer diagnosis (HCC) Weight loss Loss of weight Decreased oral intake Other symptoms concerning nutrition, metabolism, and development [facility] Diagnosis Spinal stenosis of lumbar region, unspecified whether neurogenic claudication present [facility] Diagnosis Spinal stenosis of lumbar region, unspecified whether neurogenic claudication present [facility] Diagnosis 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) [facility] Diagnosis Cancer of trachea, bronchus, and lung (HCC)- Primary Malignant neoplasm of other parts of bronchus or lung Adenocarcinoma of lung metastatic to liver, unspecified laterality (HCC) [facility] Diagnosis Primary lung cancer with metastasis from lung to other site, right (HCC)- Primary 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) Acquired hypothyroidism Unspecified hypothyroidism [facility] Diagnosis Encounter for education- Primary Counseling NOS Primary lung cancer with metastasis from lung to other site, right (HCC) [facility] Diagnosis Primary lung cancer with metastasis from lung to other site, right (HCC)- Primary 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) [facility]* Visit Details Visit Type -SN Hospice Admis maci Discipline -Detention Problems Problem Description Start Date Status Goals [...] visit Education about end of life Disciplines: SN 07/07/2023 Active 1 goal linked to scheduled/documente [...] symptoms managed Completed documented in this encounter [facility] Plan of care note* Visit Details Visit Type - Hospice Visit Discipline -Detention Problems Problem Description Start Date Status Goals [...] symptoms managed Completed documented in this encounter [facility] Plan of care note* Visit Details Visit Type -SN Hospice Visit Discipline -Detention Problems Problem Description Start Date Status Goals [...] of life Completed documented in this encounter [facility] Summary Purpose Family History No Family History Records FoundNo Family History Records FoundNo Family History Records FoundNo Family History Records FoundNo Family History Records Found Advance Directives No Advanced Directives Records FoundLatest Code Status on File Code Status Date [...] BRAIN STEM W/O W/CONTRAST MATERIAL Trenton Jaquez, [address] [place] [address] [place] [address] Referral ID Status Reason Start Date Expiration Date Visits Requested Visits Authorized [id number] Authorized Auto-Generat ed Referral 06/17/2023 07/16/2024 1 1 Specialty Diagnoses / Procedures Referred By Contac t Referred To Contact Diagnoses Lytic bone lesion of right femur Liver lesion, left lobe Mass of lower lobe of right lung Procedures CONSULT TO [facility] Trenton Jaquez, [address] [place] [address] [address] [place] [address] Referral ID Status Reason Start Date Expiration Date Visits Requested Visits Authorized [id number] Pending Review PCP Requested Referral 06/17/2023 09/15/2023 1 1 Specialty Diagnoses / Procedures Referred By Contac t Referred To Contact XR IMAGING Diagnoses Lytic bone lesion of right femur Procedures XR HIP GENERAL 3V PELV/AP/LAT RIGHT RADEX HIP UNILATERAL WITH PELVIS 2-3 VIEWS Trenton Jaquez, [address] [place] [address] [place] [address] Referral ID Status Reason Start Date Expiration Date V isits Requested Visits Authorized [id number] Closed Auto-Generate d Referral 06/17/2023 07/16/2024 1 1 Specialty Diagnoses / Procedures Referred By Contac t Referred To Contact HOSPICE Diagnoses Cancer of trachea, bronchus, 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, unspecified laterality (HCC) Procedures CONSULT TO [facility] Trenton Jaquez, [address] [place] [address] Home Hospice [address] [place] [address] Referral ID Status Reason Start Date Expiration Date Visits Requested Visits Authorized [id number] Pending Review PCP Requested Referral 07/05/2023 10/03/2023 1 1 Specialty Diagnoses / Procedures Referred By Contac t Referred To Contact Diagnoses Primary lung cancer with metastasis from lung to other site, right (HCC) 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 60 MINUTES Trenton Jaquez, [address] [place] [address] Referral ID Status Reason Start Date Expiration Date Visits Requested Visits Authorized [id number] Authorized PCP Requested Referral 07/14/2023 07/13/2024 1 1 Additional Source Comments (unrecognized sect ion and content) No Status Records FoundNo Status Records FoundNo Status Records FoundNo Status Records FoundNo Status Records Found INFORMATION SOURCE (unrecogn ized section and content) DATE CREATED AUTHOR AUTHOR'S ORGANIZ ATION 06/22/2021 [facility] [place] DATE CREATED AUTHOR AUTHOR'S ORGANIZ ATION 07/04/2023 [facility] DATE CREATED AUTHOR AUTHOR'S ORGANIZ ATION 07/10/2023 [facility] DATE CREATED AUTHOR AUTHOR'S ORGANIZ ATION 07/21/2023 [facility] Source Comments (unrecognize d section and content) In the event this informatio n is protected by the Federal Confidentiality of Alcohol and Drug Abuse Patient Records regulations: The Federal rules restrict any use of the information to criminally investigate or prosecute any alcohol or drug abuse patient.[facility] the event this information is protected by the Federal Confidentiality of Alcohol and Drug Abuse Patient Records regulations: The Federal rules restrict any use of the information to criminally investigate or prosecute any alcohol or drug abuse patient.[facility] Center[facility] the event this information is protected by the Federal Confidentiality of Alcohol and Drug Abuse Patient Records regulations: The Federal rules restrict any use of the information to criminally investigate or prosecute any alcohol or drug abuse patient.[facility] CenterIn the event this information is protected by the Federal Confidentiality of Alcohol and Drug Abuse Patient Records regulations: The Federal rules restrict any use of the information to criminally investigate or prosecute any alcohol or drug abuse patient.[facility] CenterIn the event this information is protected by the Federal Confidentiality of Alcohol and Drug Abuse Patient Records regulations: The Federal rules restrict any use of the information to criminally investigate or prosecute any alcohol or drug abuse patient.[facility] the event this information is protected by the Federal Confidentiality of Alcohol and Drug Abuse Patient Records regulations: The Federal rules restrict any use of the information to criminally investigate or prosecute any alcohol or drug abuse patient.[facility] CenterIn the event this information is protected by the Federal Confidentiality of Alcohol and Drug Abuse Patient Records regulations: The Federal rules restrict any use of the information to criminally investigate or prosecute any alcohol or drug abuse patient.[facility] CenterIn the event this information is protected by the Federal Confidentiality of Alcohol and Drug Abuse Patient Records regulations: The Federal rules restrict any use of the information to criminally investigate or prosecute any alcohol or drug abuse patient.[facility] CenterIn the event this information is protected by the Federal Confidentiality of Alcohol and Drug Abuse Patient Records regulations: The Federal rules restrict any use of the information to criminally investigate or prosecute any alcohol or drug abuse patient.[facility] CenterIn the event this information is protected by the Federal Confidentiality of Alcohol and Drug Abuse Patient Records regulations: The Federal rules restrict any use of the information to criminally investigate or prosecute any alcohol or drug abuse patient.[facility] CenterIn the event this information is protected by the Federal Confidentiality of Alcohol and Drug Abuse Patient Records regulations: The Federal rules restrict any use of the information to criminally investigate or prosecute any alcohol or drug abuse patient.[facility] CenterIn the event this information is protected by the Federal Confidentiality of Alcohol and Drug Abuse Patient Records regulations: The Federal rules restrict any use of the information to criminally investigate or prosecute any alcohol or drug abuse patient.[facility] CenterIn the event this information is protected by the Federal Confidentiality of Alcohol and Drug Abuse Patient Records regulations: The Federal rules restrict any use of the information to criminally investigate or prosecute any alcohol or drug abuse patient.[facility] CenterIn the event this information is protected by the Federal Confidentiality of Alcohol and Drug Abuse Patient Records regulations: The Federal rules restrict any use of the information to criminally investigate or prosecute any alcohol or drug abuse patient.[facility] CenterIn the event this information is protected by the Federal Confidentiality of Alcohol and Drug Abuse Patient Records regulations: The Federal rules restrict any use of the information to criminally investigate or prosecute any alcohol or drug abuse patient.[facility] CenterIn the event this information is protected by the Federal Confidentiality of Alcohol and Drug Abuse Patient Records regulations: The Federal rules restrict any use of the information to criminally investigate or prosecute any alcohol or drug abuse patient.[facility] CenterIn the event this information is protected by the Federal Confidentiality of Alcohol and Drug Abuse Patient Records regulations: The Federal rules restrict any use of the information to criminally investigate or prosecute any alcohol or drug abuse patient.[facility] CenterIn the event this information is protected by the Federal Confidentiality of Alcohol and Drug Abuse Patient Records regulations: The Federal rules restrict any use of the information to criminally investigate or prosecute any alcohol or drug abuse patient.[facility] CenterIn the event this information is protected by the Federal Confidentiality of Alcohol and Drug Abuse Patient Records regulations: The Federal rules restrict any use of the information to criminally investigate or prosecute any alcohol or drug abuse patient.[facility] CenterIn the event this information is protected by the Federal Confidentiality of Alcohol and Drug Abuse Patient Records regulations: The Federal rules restrict any use of the information to criminally investigate or prosecute any alcohol or drug abuse patient.[facility] CenterIn the event this information is protected by the Federal Confidentiality of Alcohol and Drug Abuse Patient Records regulations: The Federal rules restrict any use of the information to criminally investigate or prosecute any alcohol or drug abuse patient.[facility] CenterIn the event this information is protected by the Federal Confidentiality of Alcohol and Drug Abuse Patient Records regulations: The Federal rules restrict any use of the information to criminally investigate or prosecute any alcohol or drug abuse patient.[facility] CenterIn the event this information is protected by the Federal Confidentiality of Alcohol and Drug Abuse Patient Records regulations: The Federal rules restrict any use of the information to criminally investigate or prosecute any alcohol or drug abuse patient.[facility] CenterIn the event this information is protected by the Federal Confidentiality of Alcohol and Drug Abuse Patient Records regulations: The Federal rules restrict any use of the information to criminally investigate or prosecute any alcohol or drug abuse patient.[facility] CenterIn the event this information is protected by the Federal Confidentiality of Alcohol and Drug Abuse Patient Records regulations: The Federal rules restrict any use of the information to criminally investigate or prosecute any alcohol or drug abuse patient.[facility] CenterIn the event this information is protected by the Federal Confidentiality of Alcohol and Drug Abuse Patient Records regulations: The Federal rules restrict any use of the information to criminally investigate or prosecute any alcohol or drug abuse patient.[facility] CenterIn the event this information is protected by the Federal Confidentiality of Alcohol and Drug Abuse Patient Records regulations: The Federal rules restrict any use of the information to criminally investigate or prosecute any alcohol or drug abuse patient.[facility] CenterIn the event this information is protected by the Federal Confidentiality of Alcohol and Drug Abuse Patient Records regulations: The Federal rules restrict any use of the information to criminally investigate or prosecute any alcohol or drug abuse patient.[facility] CenterIn the event this information is protected by the Federal Confidentiality of Alcohol and Drug Abuse Patient Records regulations: The Federal rules restrict any use of the information to criminally investigate or prosecute any alcohol or drug abuse patient.[facility] CenterIn the event this information is protected by the Federal Confidentiality of Alcohol and Drug Abuse Patient Records regulations: The Federal rules restrict any use of the information to criminally investigate or prosecute any alcohol or drug abuse patient.[facility] CenterIn the event this information is protected by the Federal Confidentiality of Alcohol and Drug Abuse Patient Records regulations: The Federal rules restrict any use of the information to criminally investigate or prosecute any alcohol or drug abuse patient.[facility] CenterIn the event this information is protected by the Federal Confidentiality of Alcohol and Drug Abuse Patient Records regulations: The Federal rules restrict any use of the information to criminally investigate or prosecute any alcohol or drug abuse patient.[facility] CenterIn the event this information is protected by the Federal Confidentiality of Alcohol and Drug Abuse Patient Records regulations: The Federal rules restrict any use of the information to criminally investigate or prosecute any alcohol or drug abuse patient.[facility] CenterIn the event this information is protected by the Federal Confidentiality of Alcohol and Drug Abuse Patient Records regulations: The Federal rules restrict any use of the information to criminally investigate or prosecute any alcohol or drug abuse patient.[facility] CenterIn the event this information is protected by the Federal Confidentiality of Alcohol and Drug Abuse Patient Records regulations: The Federal rules restrict any use of the information to criminally investigate or prosecute any alcohol or drug abuse patient.[facility] CenterIn the event this information is protected by the Federal Confidentiality of Alcohol and Drug Abuse Patient Records regulations: The Federal rules restrict any use of the information to criminally investigate or prosecute any alcohol or drug abuse patient.[facility] CenterIn the event this information is protected by the Federal Confidentiality of Alcohol and Drug Abuse Patient Records regulations: The Federal rules restrict any use of the information to criminally investigate or prosecute any alcohol or drug abuse patient.[facility] CenterIn the event this information is protected by the Federal Confidentiality of Alcohol and Drug Abuse Patient Records regulations: The Federal rules restrict any use of the information to criminally investigate or prosecute any alcohol or drug abuse patient.[facility] CenterIn the event this information is protected by the Federal Confidentiality of Alcohol and Drug Abuse Patient Records regulations: The Federal rules restrict any use of the information to criminally investigate or prosecute any alcohol or drug abuse patient.[facility] CenterIn the event this information is protected by the Federal Confidentiality of Alcohol and Drug Abuse Patient Records regulations: The Federal rules restrict any use of the information to criminally investigate or prosecute any alcohol or drug abuse patient.[facility] CenterIn the event this information is protected by the Federal Confidentiality of Alcohol and Drug Abuse Patient Records regulations: The Federal rules restrict any use of the information to criminally investigate or prosecute any alcohol or drug abuse patient.[facility] CenterIn the event this information is protected by the Federal Confidentiality of Alcohol and Drug Abuse Patient Records regulations: The Federal rules restrict any use of the information to criminally investigate or prosecute any alcohol or drug abuse patient.[facility] CenterIn the event this information is protected by the Federal Confidentiality of Alcohol and Drug Abuse Patient Records regulations: The Federal rules restrict any use of the information to criminally investigate or prosecute any alcohol or drug abuse patient.[facility] CenterIn the event this information is protected by the Federal Confidentiality of Alcohol and Drug Abuse Patient Records regulations: The Federal rules restrict any use of the information to criminally investigate or prosecute any alcohol or drug abuse patient.[facility] CenterIn the event this information is protected by the Federal Confidentiality of Alcohol and Drug Abuse Patient Records regulations: The Federal rules restrict any use of the information to criminally investigate or prosecute any alcohol or drug abuse patient.[facility] CenterIn the event this information is protected by the Federal Confidentiality of Alcohol and Drug Abuse Patient Records regulations: The Federal rules restrict any use of the information to criminally investigate or prosecute any alcohol or drug abuse patient.[facility] CenterIn the event this information is protected by the Federal Confidentiality of Alcohol and Drug Abuse Patient Records regulations: The Federal rules restrict any use of the information to criminally investigate or prosecute any alcohol or drug abuse patient.[facility] CenterIn the event this information is protected by the Federal Confidentiality of Alcohol and Drug Abuse Patient Records regulations: The Federal rules restrict any use of the information to criminally investigate or prosecute any alcohol or drug abuse patient.[facility] CenterIn the event this information is protected by the Federal Confidentiality of Alcohol and Drug Abuse Patient Records regulations: The Federal rules restrict any use of the information to criminally investigate or prosecute any alcohol or drug abuse patient.[facility] Reason for Visit (unrecogniz ed section and content) Reason Comments Results Xray results...needi ng to follow up with PCP. Specialty Diagnoses / Procedures Referred By Jayjay pimentel Referred To Contact HOSPICE Diagnoses Metastatic malignant neoplasm, unspecified site (HCC) Mass of lower lobe of right lung Abnormal findings on diagnostic imaging of spine Abnormal finding on chest xray Abnormal finding on imaging of liver Procedures CONSULT TO HOSPICE Rona Peter, SP[employer]ER[address] [place] [address] [address] [place] [address] Referral ID Status Reason Start Date Expiration Date Visits Requested Visits Authorized [id number] Authorized PCP Requested Referral 06/15/2023 06/14/2024 1 1 Reason Comments [id number] Initial Consult Reason Comments New Patient Specialty Diagnoses / Procedures Referred By Jayjay pimentel Referred To Contact Oncology Diagnoses Mass of lower lobe of right lung Abnormal findings on diagnostic imaging of spine Abnormal finding on chest xray Abnormal finding on imaging of liver Procedures CONSULT TO ONCOLOGY OFFICE/OUTPATIENT NEW HIGH MDM 60 MINUTES Rona Peter, SPOT SPRAYER.[employer] PROGRAMMER [address] [place] [address] Referral ID Status Reason Start Date Expiration Date V isits Requested Visits Authorized [id number] Closed PCP Requested Referral 06/13/2023 06/12/2024 1 1 Reason Comments Consult Reason Comments Symptom Management Reason Comments Insurance Authorization Reason Comments Care Coordination Reason Comments Patient Update Reason Onset Date Comments Refill Request 07/05/2023 Reason Comments Radiotherapy On-treatment Visit Reason Comments Patient Education Reason Comments Established Patient Reason Comments Orders Specialty Diagnoses / Procedures [facility] Referred To Contact [facility]OSPICE Diagnoses Cancer of trachea, bronchus, 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, unspecified laterality (HCC) Procedures CONSULT TO [facility] Trenton Jaquez, [address] [place] [address] [address] [place] [address] Referral ID Status Reason Start Date Expiration Date Visits Requested Visits Authorized [id number] Pending Review PCP Requested Referral 07/05/2023 10/03/2023 1 1 Reason Comments Results Reason Comments Established Patient discuss plan of care Reason Comments Psych Rn - Other Introduction Reason Comments Appointment [id number] med, readmit Initial Consult Reason Comments First Time Treatment Education Keytruda Reason Comments Chemotherapy Treatment Specialty Diagnoses / Procedures Referred By [facility] Referred To Contact Diagnoses Primary lung cancer with metastasis from lung to other site, right (HCC) 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) Trenton Jaquez DO [address] [place] [address] [facility] [address] [place] [address] Referral ID Status Reason Start Date Expiration Date V isits Requested Visits Authorized [id number] Authorized 07/14/2023 10/12/2023 99 99 Reason Comments Psych Rn - Other C1D1 Post Treat ment Call (keytruda) Care Teams (unrecognized sec tion and content) Wiener Packer Relationship Specialty Start Date End Date Osei Pulliam DO [address] [place] [address] PCP - General Internal Medicine 06/08/23 Philomena Leone MD [address] [place] [address] PCP - Hospice Attending 06/15/23 Evens Love MD [address] [facility] [place] [address] Neurosurgery 06/08/23 Wiener Packer Relationship Specialty Start Date End Date Osei Pulliam DO [address] [place] [address] PCP - General Internal Medicine 06/08/23 Philomena Leone MD [address] [place] [address] PCP - Hospice Attending 06/15/23 Evens Love MD [address] [place], [place] [address] [place] [address] Neurosurgery 06/08/23 Wiener Packer Relationship Specialty Start Date End Date Osei Pulliam DO [address] [place] [address] PCP - General Internal Medicine 06/08/23 Philomena Leone MD [address] [place] [address] PCP - Hospice Attending 06/15/23 Evens Love MD [address] [place] [address] Neurosurgery 06/08/23 Wiener Packer Relationship Specialty Start Date End Date Osei Pulliam DO [address] [place] [address] PCP - General Internal Medicine 06/08/23 Philomena Leone MD [address] [place] [address] PCP - Hospice Attending 06/15/23 Evens Love MD [address] [facility] [place] [address] Neurosurgery 06/08/23 Wiener Packer Relationship Specialty Start Date End Date Osei Pulliam DO [address] [place] [address] PCP - General Internal Medicine 06/08/23 Evens Love MD [address] [facility] [place] [address] Neurosurgery 06/08/23 Janneth Pierre MD, [address] [place] [address] Radiation Oncology 06/21/23 Wiener Packer Relationship Specialty Start Date End Date Osei Pulliam DO [address] [place] [address] PCP - General Internal Medicine 06/08/23 Evens Love MD [address] [place] [address] Neurosurgery 06/08/23 Janneth Pierre MD, [address] [place] [address] Radiation Oncology 06/21/23 Wiener Packer Relationship Specialty Start Date End Date Osei Pulliam DO [address] [place] [address] PCP - General Internal Medicine 06/08/23 Evens Love MD [address] [place] [address] Neurosurgery 06/08/23 Janneth Pierre MD, [address] [place] [address] Radiation Oncology 06/21/23 Wiener Packer Relationship Specialty Start Date End Date Osei PulliamDO [address] [place] [address] PCP - General Internal Medicine 06/08/23 Evens Love MD [address] [place] [address] Neurosurgery 06/08/23 Janneth Pierre MD [address] [place] [address] Radiation Oncology 06/21/23 Wiener Packer Relationship Specialty Start Date End Date Osei Pulliam DO [address] [place] [address] PCP - General Internal Medicine 06/08/23 Evens Love MD [address] [facility] [place] [place] [address] Neurosurgery 06/08/23 Janneth Pierre MD [address] [place] [address] Radiation Oncology 06/21/23 Wiener Packer Relationship Specialty Start Date End Date Osei Pulliam DO [address] [place] [address] PCP - General Internal Medicine 06/08/23 Evens Love MD [address] [place] [address] Neurosurgery 06/08/23 Janneth Pierre MD [address] [place], [place] [address] [phone] Radiation Oncology 06/21/23 Wiener Packer Relationship Specialty Start Date End Date Osei Pulliam DO [address] [place] [address] PCP - General Internal Medicine 06/08/23 Evens Love MD [address] [place] [address] Neurosurgery 06/08/23 Janneth Pierre MD [address] [place] [address] Radiation Oncology 06/21/23 Wiener Packer Relationship Specialty Start Date End Date Osei Pulliam DO [address] [place] [address] PCP - General Internal Medicine 06/08/23 Evens Love MD [address] [place] [address] Neurosurgery 06/08/23 Janneth Pierre MD [address] [place] [address] Radiation Oncology 06/21/23 Wiener Packer Relationship Specialty Start Date End Date Osei Pulliam DO [address] [place] [address] PCP - General Internal Medicine 06/08/23 Evens Love MD [address] [place] [address] Neurosurgery 06/08/23 Janneth Pierre MD [address] [place] [address] Radiation Oncology 06/21/23 Wiener Packer Relationship Specialty Start Date End Date Osei Pulliam DO [address] [place] [address] PCP - General Internal Medicine 06/08/23 Evens Love MD [address] [place] [address] Neurosurgery 06/08/23 Janneth Pierre MD [address] [place] [address] Radiation Oncology 06/21/23 Wiener Packer Relationship Specialty Start Date End Date Osei Pulliam DO Francisco [address] [place] [address] PCP - General Internal Medicine 06/08/23 Evens Love MD [address] [place] [address] Neurosurgery 06/08/23 Janneth Pierre MD [address] [place], [place] [address] [phone] Radiation Oncology 06/21/23 Wiener Packer Relationship Specialty Start Date End Date Светланаeb Osei DO Francisco [address] [place] [address] PCP - General Internal Medicine 06/08/23 Evens Love MD [address] [place] [address] Neurosurgery 06/08/23 Janneth Pierre MD [address] [place] [address] Radiation Oncology 06/21/23 Wiener Packer Relationship Specialty Start Date End Date СветланаebOsei DO [address] [place] [address] PCP - General Internal Medicine 06/08/23 Evesn Love MD [address] [place] [address] Neurosurgery 06/08/23 Janneth Pierre MD [address] [place], [place] [address] Radiation Oncology 06/21/23 Wiener Packer Relationship Specialty Start Date End Date СветланаebOsei DO [address] [place] [address] PCP - General Internal Medicine 06/08/23 Evens Love MD [address] [facility] [place] [address] Neurosurgery 06/08/23 Janneth Pierre MD [address] [place], [place] [address] Radiation Oncology 06/21/23 Wiener Packer Relationship Specialty Start Date End Date Osei Pulliam DO [address] [place] [address] PCP - General Internal Medicine 06/08/23 Philomena Leone MD [address] [place] [address] [id number] PCP - Hospice Attending 07/07/23 Evens Love MD [address] [place] [address] Neurosurgery 06/08/23 Janneth Pierre MD [address] [place] [address] Radiation Oncology 06/21/23 Wiener Packer Relationship Specialty Start Date End Date Osei Pulliam DO [address] [place] [address] PCP - General Internal Medicine 06/08/23 Philomena Leone MD [address] [place] [address] PCP - Hospice Attending 07/07/23 Evens Love MD [address] [facility] [place] [address] Neurosurgery 06/08/23 Janneth Pierre MD [address] [place] [address] Radiation Oncology 06/21/23 Wiener Packer Relationship Specialty Start Date End Date Osei Pulliam DO [address] [place] [address] PCP - General Internal Medicine 06/08/23 Philomena Leone MD [address] [place] [address] PCP - Hospice Attending 07/07/23 Evens Love MD [address] [place] [address] Neurosurgery 06/08/23 Janneth Pierre MD [address] [place], [place] [address] Radiation Oncology 06/21/23 Wiener Packer Relationship Specialty Start Date End Date Osei Pulliam DO [address] [place] [address] PCP - General Internal Medicine 06/08/23 Philomena Leone MD [address] [place] [id number] PCP - Hospice Attending 07/07/23 Evens Love MD [address] [place] [address] Neurosurgery 06/08/23 Janneth Pierre MD [address] [place], [place] [id number] Radiation Oncology 06/21/23 Wiener Packer Relationship Specialty Start Date End Date Osei Pulliam DO [address] [place] [address] PCP - General Internal Medicine 06/08/23 Philomena Leone MD [address] [place] [address] PCP - Hospice Attending 07/07/23 Evens Love MD [address] [place] [address] Neurosurgery 06/08/23 Janneth Pierre MD [address] [place], [place] [address] [phone] Radiation Oncology 06/21/23 Wiener Packer Relationship Specialty Start Date End Date Osei Pulliam DO [address] [place] [address] PCP - General Internal Medicine 06/08/23 Philomena Leone MD [address] [place] [address] PCP - Hospice Attending 07/07/23 Evens Love MD [address] [facility] [place] [address] Neurosurgery 06/08/23 Janneth Pierre MD [address] [facility] [place] [place], [place] [address] Radiation Oncology 06/21/23 Wiener Packer Relationship Specialty Start Date End Date Osei Pulliam DO [address] [place] [address] PCP - General Internal Medicine 06/08/23 Philomena Leone MD [address] [place] [address] PCP - Hospice Attending 07/07/23 Evens Love MD [address] [facility] [place] [address] Neurosurgery 06/08/23 Janneth Pierre MD [address] [place] [address] Radiation Oncology 06/21/23 Wiener Packer Relationship Specialty Start Date End Date Osei Pulliam DO [address] [place] [address] PCP - General Internal Medicine 06/08/23 Philomena Leone MD [address] [place] [address] PCP - Hospice Attending 07/07/23 Evens Love MD [address] [place] [address] Neurosurgery 06/08/23 Janneth Pierre MD [address] [place] [address] Radiation Oncology 06/21/23 Wiener Packer Relationship Specialty Start Date End Date Osei Pulliam DO [address] [place] [address] PCP - General Internal Medicine 06/08/23 Philomena Leone MD [address] [place] [address] PCP - Hospice Attending 07/07/23 Evens Love MD 2 [place] [address] Neurosurgery 06/08/23 Janneth Pierre MD [address] [place] [address] Radiation Oncology 06/21/23 Wiener Packer Relationship Specialty Start Date End Date Osei Pulliam DO [address] [place] [address] PCP - General Internal Medicine 06/08/23 Philomena Leone MD [address] [place] [address] PCP - Hospice Attending 07/07/23 Evens Love MD [address] [facility] [place] [address] Neurosurgery 06/08/23 Janneth Pierre MD [address] [place] [address] Radiation Oncology 06/21/23 Wiener Packer Relationship Specialty Start Date End Date Osei Pulliam DO [address] [place] [address] PCP - General Internal Medicine 06/08/23 Philomena Leone MD [address] [place] [id number] PCP - Hospice Attending 07/07/23 Evens Love MD [address] [facility] [place] [address] Neurosurgery 06/08/23 Janneth Pierre MD [address] [place] [address] Radiation Oncology 06/21/23 Wiener Packer Relationship Specialty Start Date End Date Osei Pulliam DO [address] [place] [address] PCP - General Internal Medicine 06/08/23 Philomena Leone MD [address] [place] [address] PCP - Hospice Attending 07/07/23 Evens Love MD [address] [facility] [address] Neurosurgery 06/08/23 Janneth Pierre MD [address] [place] [address] Radiation Oncology 06/21/23 Wiener Packer Relationship Specialty Start Date End Date Osei Pulliam DO [address] [place] [address] PCP - General Internal Medicine 06/08/23 Philomena Leone MD [address] [place] [address] PCP - Hospice Attending 07/07/23 Evens Love MD 2 [facility] [place] [address] Neurosurgery 06/08/23 Janneth Pierre MD [address] [place] [address] Radiation Oncology 06/21/23 Wiener Packer Relationship Specialty Start Date End Date Osei Pulliam DO [address] [place] [address] PCP - General Internal Medicine 06/08/23 Philomena Leone MD [address] [place], [place] [id number] PCP - Hospice Attending 07/07/23 07/15/23 Evens Love MD [address] [facility] [place] [address] Neurosurgery 06/08/23 Janneth Pierre MD [address] [place] [address] Radiation Oncology 06/21/23 Trenton Jaquez DO [address] [place] [address] Physician Hematology/Oncology 07/15/23 Laquita Engel RN Specialty Psych Rn Oncology 07/15/23 Wiener Packer Relationship Specialty Start Date End Date Osei PulliamDO [address] [place] [address] PCP - General Internal Medicine 06/08/23 Evens Love MD [address] [facility] [place] [address] Neurosurgery 06/08/23 Janneth Pierre MD [address] [place] [address] Radiation Oncology 06/21/23 Trenton Jaquez DO [address] [place] [address] Physician Hematology/Oncology 07/15/23 Laquita Engel RN Specialty Psych Rn Oncology 07/15/23 Inactive Administered Medications - up [...] BE BASED ON THE PRIMARY CLINICAL RECORDS. [facility] [employer] [facility] provides no warranty or guarantee of the accuracy or completeness of information in this document.
[2023-07-22] MEDS: HYDROmorphone 1 MG/ML Syringe IV (01:37)
[2023-07-22] MEDS: 0.9% Normal Saline (1000mL) 1,000 ML 100 ML IV ×2 (01:38→10:56)
[2023-07-22] MEDS: LORazepam 2 MG/ML Syringe 1 MG IV (01:41)
[2023-07-22 06:00] VITALS: BMI 20.5
[2023-07-22 06:31] VITALS: BP 98/64; PULSE 64; RESP 16; TEMP 37.7; O2SAT 96
[2023-07-22 06:46] LABS: Absolute Lymphocyte Count 0.39 X10^3/uL (0.83-4.51); Absolute Neutrophil Count 6.9 X10^3/uL (2.0-7.7); Basophil# 0.02 X10^3/uL; Basophil% 0.3 % (0-1); Eosinophil# 0.03 X10^3/uL; Eosinophils% 0.4 % (0-5); Hematocrit 38.4 % (40-54); Hemoglobin 12.6 g/dL (13.0-16.5); Lymphocyte # 0.39 X10^3/ul (0.83-4.51); Mean Corp Hgb Conc 32.8 g/dL (32-36); Mean Corpuscular Hgb 29.8 pg (27.0-32.0); Mean Corpuscular Volume 90.8 fL (80-94); Monocyte# 0.41 X10^3/uL; Monocyte% 5.2 % (0-10); NRBC Flagged by Analyzer 0 % (0-5); Neutrophil # 6.93 X10^3/uL (2.7-7.7); Neutrophil % 88.5 % (47-70); POSITIVE DIFFERENTIAL YES; Platelet Count 180 K/mm3 (150-450); RBC Distribution Width CV 14.7 % (11.6-14.6); RBC Distribution Width SD 48.6 fl (35.1-43.9); Red Blood Count 4.23 M/mm3 (4.6-6.2); White Blood Count 7.8 K/mm3 (4.4-11.0)
[2023-07-22] MEDS: MorphINE SOLN 10 MG/0.5 ML PO.SYRINGE 5 MG SL/PO ×3 (06:46→13:00)
[2023-07-22 07:29] LABS: ALB/GLOB Ratio 0.9 RATIO (0.9-2.4); AST(SGOT) 103 U/L (15-37); Alanine Aminotransfer ALT/SGPT 19 U/L (16-61); Albumin, Serum 2.7 g/dL (3.2-5.0); Alkaline Phosphatase 119 U/L (45-117); Anion Gap 4 (5-15); BUN 13 mg/dL (7-18); BUN/Creat Ratio 20.7 RATIO (10-20); Chloride 103 mmol/L (98-107); Creatinine, Serum 0.63 mg/dL (0.70-1.30); EST Glomerular Filtration Rate 134 mL/min (>60); Est Glom Filt Rate - Afr Amer 162 mL/min (>60); Estimated Creatinine Clearance 71.16 ml/min; Globulin 3.1 g/dL (2.2-4.2); Glucose 126 mg/dL (74-106); Magnesium 1.9 mg/dL (1.6-2.6); Phosphorus 2.7 mg/dL (2.5-4.9); Potassium 3.9 mmol/L (3.5-5.1); Protein, Total 5.8 g/dL (6.4-8.2); Sodium Level 133 mmol/L (136-145); Thyroid Stim Hormone (TSH) 3.48 uIU/mL (0.358-3.74)
[2023-07-22] MEDS: Acetaminophen 325 MG Tablet 650 MG PO (07:51)
[2023-07-22] MEDS: oxyCODONE 5 MG Tablet 20 MG PO ×2 (07:52→12:32)
[2023-07-22] MEDS: Pantoprazole Sodium 20 MG Tablet PO (07:53)
[2023-07-22] MEDS: Famotidine 20 MG Tablet 10 MG PO (07:53)
[2023-07-22] MEDS: dexAMETHasone 4 MG Tablet PO (07:53)
[2023-07-22] MEDS: APIXABAN 5 MG TABLET PO (07:54)
[2023-07-22] MEDS: Senna Tablet 1 TABLET PO (07:54)
[2023-07-22] MEDS: LORazepam 1 MG Tablet PO ×2 (07:58→12:23)
[2023-07-22] MEDS: Miconazole Nitrate 43 GM Bottle 1 APPLIC TOPICAL (08:00)
--- NOTE | 2023-07-22 08:08 | ONC.CONSULT ---
Assessment & Plan Assessment/Plan (1) Metastatic lung cancer (metastasis from lung to other site): Status: Acute Code(s): C34.90 - Malignant neoplasm of unspecified part of unspecified bronchus or lung Qualifiers: Laterality: unspecified laterality Qualified Code(s): C34.90 - Malignant neoplasm of unspecified part of unspecified bronchus or lung Plan: Impression: -73 yo male recently diagnosed with a poorly differentiated lung cancer with widespread metastases including innumerable brain metastases status post whole brain radiation therapy. -Received 1 dose pembrolizumab because of PD-L1 70%. -Performance status has continued to decline. -I discussed with his son. Recommended inpatient hospice care to which he agreed. Plan: -Please consult [facility] for transfer to inpatient unit HPI Consult Data Date of Service:: 07/22/23 PCP / Referring Provider: EDNA ZACARIAS Attending: Dr. 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 ? HPI: The patient is a 73-year-old male with past medical history significant for rheumatoid arthritis (diagnosed about 15 years ago), low back pain, former smoker (quit 1995; 15 pack years). ? RA--had been on MTX, Humira and other biologics in the past. ? Currently on Plaquenil. ? Had an MRI of the lumbar spine which showed marrow replacing lesions in L2 and L3 suspicious for metastatic disease. On a callback MRI done with contrast similar osseous findings and retroperitoneal adenopathy observed as well. ? Follow-up CT abdomen pelvis 06/12/2023 identified Widespread abdominopelvic neoplasm, including bilobar hepatic masses, extensive abdominal lymphadenopathy, a right adrenal mass, multiple lytic bone metastases, and suspected carcinomatosis. ?This is presumably diffuse metastatic disease, although the primary neoplasm is not clearly identified. ?As indicated, the dominant left lobe liver metastasis would be amenable for percutaneous biopsy. ? CT chest IMPRESSION: 1. ?RIGHT upper lobe mass favoring primary pulmonary malignancy. 2. ?Multiple bilateral small pulmonary nodules highly suspicious for metastatic disease. 3. ? Metastatic RIGHT hilar and paratracheal lymphadenopathy. 4. ?Lytic osseous metastases involving the T8 vertebral body, bilateral fourth ribs, and LEFT ninth rib. ? Underwent biopsy of liver metastasis. ? Pathology revealed metastatic poorly differentiated carcinoma. ? PD-L1 and targeted NGS panel pending. ? 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 ? Was started on dexamethasone and began WBRT and RT to the right greater trochanter. ? Was under hospice care following WBRT, but came off to start therapy with pembrolizumab b/c of PD-L1 70%. Tapered off dexamethasone. Had first infusion 07/14. His called the office yesterday around 4:30 pm to let us know he was having increased sleepiness, had only been awake about an hour yesterday and had only eaten a little bit of applesauce and half a banana sips of water. Noted dark urine. He denied nausea and vomiting. No fever. Had fallen 3 times over the last few days. She endorsed more confusion. He was taken to the ED at [facility]. Lab work was unremarkable with the exception of alkaline phosphatase mildly elevated at 131 and an AST of 58. ALT was normal. Total bilirubin was normal as well. Had history of hyponatremia but chemistry panel yesterday demonstrated a sodium of 136. Creatinine 0.68. UA demonstrated rare bacteria. 1+ protein. 1+ urobilinogen. Negative for nitrites and leukocyte esterases. No glucose. No bilirubin. CXR revealed probable atelectasis in the left lung base. Noted that infection could appear similar in the appropriate clinical setting. A CT of the brain was performed without IV contrast. It showed no evidence of acute intracranial abnormality. Known extensive brain metastases were observed without significant progressive mass effect and the limited comparison to the MRI from 06/20/2023. Cervical spine CT showed no evidence of an acute fracture or traumatic spondylolisthesis in the cervical spine. There was a partially imaged intraosseous/extraosseous disrupter mass in the posterior upper chest wall/thoracic spine progression when compared to a CT from 06/10/2023. There was pleural parenchymal lung component and also multiple bilateral lung micronodules likely representing metastases. Nonspecific lucent cervical spine foci were also noted. MRI was advised to be considered for more detailed assessment. There was felt to most likely be encroachment adjacent neural foramina and probably the dura. Patient is very sleepy and difficult to awaken this morning. However once he does he is able to move all 4 extremities but quickly goes back to sleep. He is not oriented and does not remember who I am. Low-grade temp of 100.2 this morning. Advanced Directives Power of Social Worker Palliative Care: Yes Living Will: Yes PFSH Medical History Blood clot in abdominal vein Bone cancer Brain cancer Former smoker Liver cancer Osteoporosis Rheumatoid arthritis Home Medications apixaban 5 mg tablet (Eliquis) 5 mg PO Q12H 07/22/23 [History Last Taken Unknown] baclofen 10 mg tablet 10 mg PO Q8H PRN hiccups 07/22/23 [History Last Taken Unknown] dexamethasone 4 mg tablet 4 mg PO BID 07/22/23 [History Last Taken Unknown] famotidine 10 mg tablet 10 mg PO DAILY 07/22/23 [History Last Taken Unknown] fentanyl 12 mcg/hr transdermal patch 25 mcg transdermal Q72H pain 07/22/23 [History Last Taken 07/21/23] gabapentin 400 mg capsule 400 mg PO TID pain 07/22/23 [History Last Taken Unknown] hydroxychloroquine 200 mg tablet 200 mg PO QODAY ra 07/22/23 [History Last Taken Unknown] lansoprazole 15 mg capsule,delayed release 15 mg PO Q12H 07/22/23 [History Last Taken Unknown] lorazepam 0.5 mg tablet 0.5 mg PO BID 07/22/23 [History Last Taken Unknown] lorazepam 1 mg tablet 1 mg PO Q4H PRN anxiety 07/22/23 [History Last Taken Unknown] oxycodone 20 mg tablet 20 mg PO Q4H pain 07/22/23 [History Last Taken Unknown] sennosides 8.6 mg tablet (senna) 8.6 mg PO BID 07/22/23 [History Last Taken Unknown] Allergy/AdvReac Type Severity Reaction Status Date / Time No Known Allergies Allergy Verified 07/22/23 01:11 Social History Smoking Status: Former smoker Physical Exam Const Constitutional Narrative: Cachetic appearing. Sedate. HEENT Mouth: dry mucous membranes Eyes no scleral icterus Resp normal respiratory effort Cardio regular rhythm Neuro moves all extremities Vital Signs Temperature 99.9 F H 07/22/23 06:31 Temperature Source Temporal 07/22/23 06:31 Pulse Rate 64 07/22/23 06:31 Respiratory Rate 16 07/22/23 06:31 Blood Pressure 98/64 07/22/23 06:31 Blood Pressure Mean 75 07/22/23 06:31 Blood Pressure Source Monitor 07/22/23 06:31 Blood Pressure Position Semi-Fowlers 07/22/23 06:31 Blood Pressure Location Left Arm 07/22/23 06:31 Pulse Ox 96 07/22/23 06:31 Oxygen Delivery Method Room Air 07/22/23 06:31 Laboratory Results - last 24 hr 07/22/23 06:25: WBC 7.8, RBC 4.23 L, Hgb 12.6 L, Hct 38.4 L, MCV 90.8, MCH 29.8, MCHC 32.8, RDW Std Deviation 48.6 H, RDW Coeff of Derek 14.7 H, Plt Count 180, MPV 9.0, Immature Gran % (Auto) 0.600, Neut % (Auto) 88.5 H, Lymph % (Auto) 5.0 L, [place] % (Auto) 5.2, Eos % (Auto) 0.4, Baso % (Auto) 0.3, Absolute Neuts (auto) 6.9, Absolute Lymphs (auto) 0.39 L, Nucleated RBC % 0, Sodium 133 L, Potassium 3.9, Chloride 103, Carbon Dioxide 26.0, Anion Gap 4 L, BUN 13, Creatinine 0.63 L, Estim Creat Clear Calc 71.16, Est GFR (MDRD) Af Amer 162, Est GFR (MDRD) Non-Af 134, BUN/Creatinine Ratio 20.7 H, Glucose 126 H, Calcium 8.0 L, Phosphorus 2.7, Magnesium 1.9, Total Bilirubin 0.90, AST 103 H, ALT 19, Alkaline Phosphatase 119 H, Total Protein 5.8 L, Albumin 2.7 L, Globulin 3.1, Albumin/Globulin Ratio 0.9, TSH 3.48
[2023-07-22 09:01] VITALS: BP 97/72; PULSE 90; RESP 16; TEMP 37.9; O2SAT 97
--- NOTE | 2023-07-22 10:07 | CASEMGMT ---
Addendum entered by Bettye Wilson 07/22/23 13:48: Social Work Hospice nurse here and met with pt and family. Pt has been accepted into the inpatient hospice unit. [facility] to arrange for transportation. Physician updated. MAKSIM Hector Original Note: Social Work Referral from nursing that order for hospice has been placed and oncology is recommending the Inpatient Hospice Unit. Phone call to pt's son Galindo who had spoke with oncology and pts son is agreeable to referral to the IPU. Phone call to [facility] and referral has been made for the IPU. Clinicals faxed. Hospice to reach out to pt's son to schedule an appointment and will call SW with appointment time. MAKSIM Hector
[2023-07-22] MEDS: LORazepam 0.5 MG Tablet PO (10:11)
[2023-07-22 11:47] VITALS: BP 99/72; PULSE 74; RESP 16; TEMP 36.4; O2SAT 94
[2023-07-22] MEDS: Gabapentin 400 MG Capsule PO (13:03)
--- NOTE | 2023-07-22 13:12 | NURSING ---
called report to hospice
--- NOTE | 2023-07-22 14:15 | DS.PCM_ITS ---
Providers Date of Admission: 07/22/23 Date of Discharge: 07/22/23 Primary Care Physician: EDNA ZACARIAS Consultations 07/22/23 01:20 Consult: Hospice / Palliative Care Routine Consulting Provider: [facility] Reason for Consult: Metastatic lung cancer with uncontrolled pain & anxiety w/ failure to thriv EMERGENT Consult: No Notified: No Date Notified: 07/22/23 Time Notified: 01:20 07/22/23 05:00 Consult: Oncology/Hematology Routine Consulting Provider: [facility] ([facility]) Reason for Consult: Metastatic lung cancer resistant to treatment with immune therapy. EMERGENT Consult: No Notified: Yes Date Notified: 07/22/23 Time Notified: 08:30 Method of Notification: phone 07/22/23 08:50 Consult: Oncology/Hematology Routine Consulting Provider: [facility] Reason for Consult: cancer pt EMERGENT Consult: No Notified: Yes Date Notified: 07/22/23 Time Notified: 08:50 Method of Notification: phone 07/22/23 08:56 Consult: Hospice / Palliative Care Routine Consulting Provider: [facility] Reason for Consult: needs in patient hospice EMERGENT Consult: No Notified: No Date Notified: 07/22/23 Time Notified: 08:59 Reason For Visit: METASTATIC LUNG CANCER WITH ADULT FAILURE TO THRIV Diagnosis Discharge Diagnosis (1) Metastatic lung cancer (metastasis from lung to other site): Status: Acute Code(s): C34.90 - Malignant neoplasm of unspecified part of unspecified bronchus or lung Qualifiers: Laterality: unspecified laterality Qualified Code(s): C34.90 - Malignant neoplasm of unspecified part of unspecified bronchus or lung Medications at Discharge Home Medications apixaban 5 mg tablet (Eliquis) 5 mg PO Q12H 07/22/23 baclofen 10 mg tablet 10 mg PO Q8H PRN hiccups 07/22/23 dexamethasone 4 mg tablet 4 mg PO BID 07/22/23 famotidine 10 mg tablet 10 mg PO DAILY 07/22/23 fentanyl 12 mcg/hr transdermal patch 25 mcg transdermal Q72H pain 07/22/23 gabapentin 400 mg capsule 400 mg PO TID pain 07/22/23 hydroxychloroquine 200 mg tablet 200 mg PO QODAY ra 07/22/23 lansoprazole 15 mg capsule,delayed release 15 mg PO Q12H 07/22/23 lorazepam 0.5 mg tablet 0.5 mg PO BID 07/22/23 lorazepam 1 mg tablet 1 mg PO Q4H PRN anxiety 07/22/23 oxycodone 20 mg tablet 20 mg PO Q4H pain 07/22/23 sennosides 8.6 mg tablet (senna) 8.6 mg PO BID 07/22/23 Hospital Course Operations None Procedures None Summary of Care Provided Minutes Spent on Discharge: 55 Hospital Course: Patient is a 73-year-old male with a past medical history as outlined including metastatic lung cancer to the brain and bone as well as chronic debility and illness. He had previously been on palliative radiation and hospice but hospice was recently revoked so that he could start palliative immunotherapy with oncology. He was admitted as a transfer from [facility] ER appetite he was noted to be more weak and lethargic. He was very confused. Family noted that he had becoming more weak and confused since he started the palliative immunotherapy. He was very weak and emaciated and had not been able to eat and drink well. He had declined precipitously over the week prior to admission. Imaging done at outside hospital showed destructive bony lesion which could be encroaching on the thoracic spine. Patient was admitted and managed for severe debility and failure to thrive in light of metastatic lung cancer with failure to thrive. Oncology was consulted to review patient for possible palliative radiation therapy. Oncology reviewed patient and recommended hospice care as there was no further treatment that could be offered to him. Family was in agreement with hospice evaluation. Hospice evaluated patient on 07/22/2023. Patient was discharged to inpatient hospice medical facility on 07/22/2023. Patient was seen and examined prior to him being discharged. Patient was very frail and lethargic. He was barely responsive. Unable to do any review of systems. Physical Exam Const Constitutional Narrative: very weak and lethargic. Not able to communicate due to weakness and debility Exam Limitations: altered mental status Nutritional Appearance: cachectic HEENT normocephalic, head/scalp atraumatic, moist oral mucous membranes and oropharynx normal Mouth: oral and palatal mucosa normal Eyes PERRL, EOMs intact bilaterally and conjunctivae normal Neck no lymphadenopathy Resp Resp Narrative: diminished breath sounds bibasally. no wheezes or crackles. Cardio regular rate, regular rhythm, S1 normal heart sound, S2 normal heart sound and no murmurs GI normal to inspection, nondistended, normoactive bowel sounds, soft to palpation and non-tender Neuro Neuro Narrative: very weak and debilitated, frail and weak. lethargic and minimally responsive. Weight / BMI Weight Weight: 130 lb 15.273 oz Body Mass Index (BMI) 20.5 ABG / Lab / Microbiology Data 07/22/23 06:25 07/22/23 06:25 Laboratory: Laboratory Results - last 24 hr 07/22/23 06:25: WBC 7.8, RBC 4.23 L, Hgb 12.6 L, Hct 38.4 L, MCV 90.8, MCH 29.8, MCHC 32.8, RDW Std Deviation 48.6 H, RDW Coeff of Derek 14.7 H, Plt Count 180, MPV 9.0, Immature Gran % (Auto) 0.600, Neut % (Auto) 88.5 H, Lymph % (Auto) 5.0 L, [place] % (Auto) 5.2, Eos % (Auto) 0.4, Baso % (Auto) 0.3, Absolute Neuts (auto) 6.9, Absolute Lymphs (auto) 0.39 L, Nucleated RBC % 0, Sodium 133 L, Potassium 3.9, Chloride 103, Carbon Dioxide 26.0, Anion Gap 4 L, BUN 13, Creatinine 0.63 L , Estim Creat Clear Calc 71.16, Est GFR (MDRD) Af Amer 162, Est GFR (MDRD) Non- Af 134, BUN/Creatinine Ratio 20.7 H, Glucose 126 H, Calcium 8.0 L, Phosphorus 2.7, Magnesium 1.9, Total Bilirubin 0.90, AST 103 H, ALT 19, Alkaline Phosphatase 119 H, Total Protein 5.8 L, Albumin 2.7 L, Globulin 3.1, Albumin/Globulin Ratio 0.9, TSH 3.48 Meaningful Use Info Meaningful Use Diagnoses (Choose all that apply): None applicable Discharge Plan Admission Admit Date/Time: 07/22/23 01:24 Primary Reason for Your Visit: debility, failure to thrive, metastatic lung cancer Attending Provider: Amanda Patton Primary Care Provider: EDNA ZACARIAS Consulting Providers: Ian Salazar; Jeramy Villegas; Lm Whitt; Yolanda Barrera; Noblerto Castillo; Marco Joseph; Brandin Hernández; Trenton Jaquez; Ian Dumont; Daquan Cevallos; Supa Antonio; Calvin Lua; Ed Davis; Marquise Bueno; Pablo Hirsch; Lydia Resendiz [employer]ATOR Discharge Orders/Prescriptions Prescriptions: No Action fentanyl 12 mcg/hr patch 72 hour 25 mcg transdermal Q72H Patient Comments: APPLY 1 PATCH TOPICALLY TO THE SKIN EVERY 72 HOURS FOR 6 DAYS DIRECTED. DO NOT CUT PATCH gabapentin 400 mg capsule 400 mg PO TID Patient Comments: TAKE 1 CAPSULE BY MOUTH THREE TIMES DAILY baclofen 10 mg tablet 10 mg PO Q8H PRN (Reason: hiccups) Patient Comments: TAKE 1 TABLET BY MOUTH THREE TIMES DAILY NEEDED FOR HICCUPS hydroxychloroquine 200 mg tablet 200 mg PO QODAY Patient Comments: TAKE 1 TABLET BY MOUTH ONCE EVERY OTHER DAY ALTERNATING WITH 1 TABLET BY M OUTH TWICE DAILY EVERY OTHER DAY oxycodone 20 mg tablet 20 mg PO Q4H Patient Comments: TAKE 1 TABLET BY MOUTH EVERY 4 HOURS NEEDED FOR PAIN lorazepam 0.5 mg tablet 0.5 mg PO BID Patient Comments: TAKE 1 TABLET BY MOUTH TWICE DAILY NEEDED, morning and evening lorazepam 1 mg tablet 1 mg PO Q4H PRN (Reason: anxiety) dexamethasone 4 mg tablet 4 mg PO BID Patient Comments: TAKE 1 TABLET BY MOUTH TWICE DAILY WITH MEALS sennosides [senna] 8.6 mg tablet 8.6 mg PO BID Patient Comments: TAKE 1 TABLET BY MOUTH TWICE DAILY Eliquis 5 mg tablet 5 mg PO Q12H Patient Comments: TAKE 1 TABLET BY MOUTH TWICE DAILY famotidine 10 mg tablet 10 mg PO DAILY lansoprazole 15 mg capsule,delayed release(DR/EC) 15 mg PO Q12H Referrals / Follow Up: EDNA ZACARIAS [Other] Disposition Disposition (needs filled in before D/C Order can be placed): Hospice in Medical Facility Charges/Coding Visit Charges Inpatient E&M: 24118 Disch Hosp >30min
== END 2023-07-22 13:35 | disposition hospice, inpatient (51) ==
PROVIDERS: Admitting Provider Internal Medicine; Visit Provider Student in an Organized Health Care Education/Training Program
DX: C34.90 Malignant neoplasm of unspecified part of unspecified bronchus or lung (principal); C77.1 Secondary and unspecified malignant neoplasm of intrathoracic lymph nodes; C79.31 Secondary malignant neoplasm of brain; C78.7 Secondary malignant neoplasm of liver and intrahepatic bile duct; C79.51 Secondary malignant neoplasm of bone; M06.9 Rheumatoid arthritis, unspecified; R53.81 Other malaise; E86.0 Dehydration; Z51.5 Encounter for palliative care; F41.9 Anxiety disorder, unspecified; Z92.3 Personal history of irradiation; Z79.01 Long term (current) use of anticoagulants; Z87.891 Personal history of nicotine dependence; R62.7 Adult failure to thrive; Z79.899 Other long term (current) drug therapy
CPT/HCPCS: 36415; 80053; 83735; 84100; 84443; 85025; 96361; 96374; 96375; 99221; J7030; G0378; G0379